=== PATIENT | female | born 1960 | race Caucasian/White ===

== ENCOUNTER 2022-11-12 09:35 | Emergency (ER) | payer OTHER, SELFPAY ==
[2022-11-12 10:04] VITALS: BP 139/85; PULSE 75; RESP 16; TEMP 36.6; O2SAT 100
--- NOTE | 2022-11-12 11:47 | ED.URI ---
HPI - URI/Sore Throat General Chief Complaint: Upper Respiratory Infection Stated Complaint: Sore Throat/Ear Pain Time Seen by Provider: 11/12/22 11:40 Source: patient and RN notes reviewed Mode of arrival: ambulatory Limitations: no limitations History of Present Illness HPI Narrative: 61-year-old female presents concern for 2 day history of left ear pain, sore throat on the left side. She denies fever, aches, chills, sweats, headache, stomach ache. Reports she has a slight runny nose. Reports her son has strep throat. MD elicited complaint: sore throat Related Data Home Medications Medication Instructions Recorded Confirmed lisinopril 2.5 mg tablet mg 11/12/22 pantoprazole 40 mg tablet,delayed mg PO 11/12/22 release simvastatin 40 mg tablet mg 11/12/22 Allergies Allergy/AdvReac Type Severity Reaction Status Date / Time Penicillins Allergy Unknown Itching Unverified 08/29/13 11:33 Review of Systems Review of Systems: CONSTITUTIONAL: Denies malaise, chills, sweats, or fever. EYES: Denies visual changes, redness, or discharge. ENT: Reports rhinorrhea, otalgia and sore throat. CARDIOVASCULAR: Denies chest pain, palpitations, or edema. RESPIRATORY: Denies cough. Denies dyspnea. GASTROINTESTINAL: Denies abdominal pain, nausea, vomiting, diarrhea SKIN: Denies rash or itching. MUSCULOSKELETAL: Denies myalgia. NEUROLOGIC: Denies headache. All systems reviewed & are unremarkable except as noted in HPI and below PMFSH Comments At time of signature, agree with nursing past medical, surgical, social and family history. There is no relevant family history pertinent to the presenting complaint Exam Narrative: GENERAL: Well-appearing, well-nourished, and in no acute distress. HEAD: Normocephalic EYES: PERRLA, conjunctivae clear ENT: Nares clear, turbinates edematous and erythematous, clear discharge. Mucous membranes moist. TM pearly lemus with dull light reflex bilaterally; no tragal tenderness. Oropharynx erythematous without lesions. Tonsils enlarged and with exudate, no drooling, no hoarseness, no trismus, uvula midline. NECK: Supple. No lymphadenopathy CHEST: Clear to auscultation, breath sounds equal. No wheezing, rhonchi, rales, or stridor. No respiratory distress, speaks in full sentences. HEART: Regular rate and rhythm. No murmur heard. SKIN: Warm, dry, no rash. NEURO: Alert and oriented x3. PSYCH: Normal mood and affect Course Course Emergency Course: Patient is aware of diagnosis, understands and agrees to treatment plan. Anticipatory guidance given. Patient agrees to follow-up as directed and is aware of reasons to seek care at the emergency department. Portions of this record may have been created with voice recognition software Level of Care: Express Care Visit Vital Signs Vital signs: Vital Signs Temperature 98 F 11/12/22 10:04 Pulse Rate 75 11/12/22 10:04 Respiratory Rate 16 11/12/22 10:04 Blood Pressure 139/85 11/12/22 10:04 Pulse Oximetry 100 11/12/22 10:04 Oxygen Delivery Room Air 11/12/22 10:04 Temperature 98 F 11/12/22 10:04 Pulse Rate 75 11/12/22 10:04 Respiratory Rate 16 11/12/22 10:04 Blood Pressure 139/85 11/12/22 10:04 Pulse Oximetry 100 11/12/22 10:04 Oxygen Delivery Room Air 11/12/22 10:04 Reviewed. MDM - URI/Sore Throat MDM Narrative Medical decision making narrative: Differential diagnosis considered: Wiseman virus, strep pharyngitis, allergic rhinitis, upper respiratory tract infection, sinusitis, rhinosinusitis, nasopharyngitis. viral pharyngitis, otitis media, otitis externa, pneumonia, bronchitis, viral cough syndrome, viral syndrome, and influenza. Exam findings show no acute concerns or changes; patient is non-toxic appearing and is in no distress. Patient is appropriate for outpatient treatment and follow-up. Lab Data Attestation: I reviewed the patient's lab results. Critical Care Time Critical Care Time Crit
== END 2022-11-12 12:12 | disposition home or self-care (01) ==
PROVIDERS: Emergency Provider Nurse Practitioner; PCP Family Medicine
DX: J03.90 Acute tonsillitis, unspecified (principal); Z79.899 Other long term (current) drug therapy
CPT/HCPCS: 87081; 87880; 99203; G0463

== ENCOUNTER 2023-03-02 09:50 | Emergency (ER) | payer OTHER, SELFPAY ==
[2023-03-02 09:57] VITALS: BP 121/75; PULSE 92; RESP 16; TEMP 36.9; O2SAT 96
--- NOTE | 2023-03-02 10:12 | ED.GENADULT ---
HPI - General Adult General Chief complaint: Upper Respiratory Infection Stated complaint: throat/cough Source: patient, RN notes reviewed and old records reviewed Mode of arrival: ambulatory Limitations: no limitations History of Present Illness HPI narrative: 62-year-old female presents to [facility] with complaints cough, congestion, general malaise this started 2-3 days ago, then sore throat started yesterday. Patient taking [id number] medications with no relief. Patient denies weakness, dizziness, chest pain, shortness of. MD complaint: sore throat Onset (ago): day(s) (1) Related Data Home Medications Medication Instructions Recorded Confirmed lisinopril 2.5 mg tablet 2.5 mg PO DAILY 11/12/22 03/02/23 pantoprazole 40 mg tablet,delayed 40 mg PO DAILY 11/12/22 03/02/23 release simvastatin 40 mg tablet 40 mg PO DAILY 11/12/22 03/02/23 levothyroxine 125 mcg tablet 125 mcg PO DAILY 03/02/23 03/02/23 Allergies Allergy/AdvReac Type Severity Reaction Status Date / Time Penicillins Allergy Unknown Itching Unverified 03/02/23 10:15 Review of Systems Constitutional: Constitutional: Reports no additional constitutional complaints, Denies body ache(s), Denies chills, Reports fatigue, Denies fever(s) and Denies headache(s) Eyes: Eyes: Reports no additional eye complaints and Denies blurry vision ENT: Reports system reviewed and no additional complaints, except as documented, Denies vertigo, Denies dizziness, Denies ear discharge, Denies otalgia, Denies facial pain, Denies headache(s), Reports nasal congestion, Denies nasal discharge, Denies sinus pain, Denies sinus pressure and Reports sore throat Cardiovascular: Cardiovascular: Reports no additional cardiovascular complaints, Denies chest pain, Denies chest pain at rest, Denies rapid heart rate and Denies dyspnea Respiratory: Respiratory: Reports no additional respiratory complaints, Denies chest congestion, Reports cough, Denies pain on inspiration, Denies pain with cough and Denies dyspnea Gastrointestinal: Gastrointestinal: Denies abdominal pain, Denies diarrhea, Denies nausea and Denies vomiting Integumentary/Breasts: Skin/Breast: Denies rash Neurologic: Reports system reviewed and no additional complaints, except as documented, Denies vertigo, Denies dizziness and Denies headache(s) Endocrine: Endocrine: Denies fatigue PMFSH Comments At the time of my signature, I reviewed and agree with the nursing past medical, surgical, social, and family history. There is no relevant family history pertinent to the patient complaint. Exam Const: General: cooperative, healthy appearing, no acute distress and well nourished Nutritional Appearance: well nourished Orientation/consciousness: patient oriented x3 Limitations: no limitations HENMT: Head: normal to inspection and normocephalic Ears: external ears normal, TM's normal bilaterally, mastoids normal and Abnormal EAC present Face/Nose/Sinus: normal facial exam Face and sinus: normal facial exam Mouth: Yes Normal oral and palatal mucosa present, Yes oropharynx normal and Yes moist mucous membranes Throat: tonsils normal, uvula midline, posterior oropharynx abnormal erythema and no uvular edema Eyes: General: appearance normal, both eyes and all related structures Sclera: sclerae normal Pupils: Equal, round and reactive pupils present Resp: Effort & Inspection: normal respiratory effort, able to speak in complete sentences, no audible wheezes, no cough, no respiratory distress and no retractions Auscultation: clear to auscultation bilaterally, no crackles, no rales, no rhonchi and no wheezes Cardio: Rate: regular rate Rhythm: regular rhythm Skin: General skin exam: normal color and no rashes or lesions noted Neuro: General: patient oriented x3 Cranial nerves: Yes Equal, round and reactive pupils present Psych: Appearance: grossly normal Mental Status: mental status grossly normal Speech and movement: Araceli
== END 2023-03-02 10:25 | disposition home or self-care (01) ==
PROVIDERS: Emergency Provider Registered Nurse; PCP Family Medicine
DX: B34.9 Viral infection, unspecified (principal)
CPT/HCPCS: 87081; 87880; 99213; G0463

== ENCOUNTER 2023-10-29 07:07 | Day surgery (SDC) | payer OTHER, SELFPAY ==
[2023-10-07 11:49] VITALS: BMI 26.2
[2023-10-13 14:45] VITALS: BMI 25.8
--- NOTE | 2023-10-28 10:07 | P.PNAN_ITS ---
Anes - Initial Pre Proc Eval Procedure: Operation Date: 10/29/23 09:00 Proposed Procedures p Diagnostic Colonoscopy - Jose Maciel MD Date/Time: 10/28/23 10:07 Surgeon: Jose Maciel MD Pre Op Diagnosis: Personal HX of Other Diseases of the Digestive Patient Data Age: 62 Gender: F Height: 1.63 m Weight: 68.3 kg Allergies Allergy/AdvReac Type Severity Reaction Status Date / Time Penicillins Allergy Unknown Itching Verified 10/29/23 07:29 Home Medications Medication Instructions Recorded Confirmed Type levothyroxine 125 mcg tablet 125 mcg PO DAILY 03/02/23 10/29/23 History cholecalciferol (vitamin D3) 25 25 mcg PO DAILY 10/13/23 10/29/23 History mcg (1,000 unit) tablet (Vitamin D3) Patient hx anesthesia problems: none Family hx anesthesia problems: none Results Review: All pre-operative results and documents have been reviewed as part of the pre- operative evaluation. [facility] Past Medical History Medical History (Updated 10/28/23 @ 10:07 by Caden Live DO) Disorder of thyroid History of hypertension Hypothyroidism Surgical History Surgical History (Updated 10/28/23 @ 10:07 by Caden Live DO) History of cholecystectomy Family History Family History (Updated 09/22/23 @ 09:45 by Rivka Tarango MA) Father Hypertension Mother Diabetes mellitus Social History Social History (Updated 09/22/23 @ 09:47 by Rivka Tarango MA) Smoking status: Former smoker Tobacco type: cigarettes Alcohol intake: never Substance use type: does not use Do You Feel Safe in your Home?: Yes Lack of Transportation: No Lack of Food: Never True Current Housing: I Have Housing Concerned About Future Housing: No Difficulty Paying Gas/Electric Bills: No Difficulty Paying for Meds: No Currently Unemployed: No Education: High School Diploma/GED Living arrangements: alone Occupation/Education: retired Spiritual care concerns: No Agree to blood products: Yes Anes - Eval Final PreProcedure Day of Procedure 10/28/23 10:07 Patient weight: overweight Heart: regular rate and rhythm Lungs: clear to auscultation Airway: Mallampati scale class II Neurological: alert and oriented Last oral intake: >/= 8 hours ASA classification: II Emergent: no Anesthetic plan: proceed Anesthesia type and monitoring: general GIVS and standard monitoring Results Review: All pre-operative results and documents have been reviewed as part of the pre- operative evaluation. Informed Consent: The patient's anesthetic plan and its attendant risks and benefits were discussed with the patient/family/POA. Questions were solicited and answers provided to the satisfaction of the patient/family/POA.
[2023-10-29 07:40] VITALS: BP 131/86; PULSE 74; RESP 16; TEMP 37.3; O2SAT 100; BMI 25.5
--- NOTE | 2023-10-29 08:11 | PM.HPGS ---
History of Present Illness History of Present Illness Consent: Risks, benefits, and alternatives have been discussed and questions answered. Patient agrees to proceed with procedure. Chief complaint: history of bloody diarrhea Narrative: Carla Summers is a 62 year old female referred colonoscopy. Patient reports having had abdominal pain with diarrhea admixed with blood. This occurred after eating out with friends will also became ill. Because of abdominal pain diarrhea and bleed is admitted the hospital in [place] for several days. CT scan suggested diffuse colitis. Patient was treated with broad-spectrum antibiotics with resolution of symptoms. Patient's current weight appetite and bowel movements have returned to normal. Previous colonoscopy 2 years ago was unremarkable. Patient referred today for follow-up colonoscopy after her recent episode. Review of Systems Review of Systems: All systems reviewed & are unremarkable except as noted in HPI and below PMFSH Past Medical History Medical History (Updated 10/28/23 @ 10:07 by Caden Live DO) Disorder of thyroid History of hypertension Hypothyroidism Surgical History Surgical History (Updated 10/28/23 @ 10:07 by Caden Live DO) History of cholecystectomy Family History Family History (Updated 09/22/23 @ 09:45 by Rivka Tarango MA) Father Hypertension Mother Diabetes mellitus Social History Social History (Updated 09/22/23 @ 09:47 by Rivka Tarango MA) Smoking status: Former smoker Tobacco type: cigarettes Alcohol intake: never Substance use type: does not use Do You Feel Safe in your Home?: Yes Lack of Transportation: No Lack of Food: Never True Current Housing: I Have Housing Concerned About Future Housing: No Difficulty Paying Gas/Electric Bills: No Difficulty Paying for Meds: No Currently Unemployed: No Education: High School Diploma/GED Living arrangements: alone Occupation/Education: retired Spiritual care concerns: No Agree to blood products: Yes Meds Home Medications and Allergies Home Medications Medication Instructions Recorded Confirmed Type levothyroxine 125 mcg tablet 125 mcg PO DAILY 03/02/23 10/29/23 History cholecalciferol (vitamin D3) 25 25 mcg PO DAILY 10/13/23 10/29/23 History mcg (1,000 unit) tablet (Vitamin D3) Allergies Allergy/AdvReac Type Severity Reaction Status Date / Time Penicillins Allergy Unknown Itching Verified 10/29/23 07:29 Vital Signs Vital Signs - 24 hr 10/29/23 07:40 Temperature 99.2 F Pulse Rate 74 Respiratory Rate 16 Blood Pressure 131/86 Pulse Oximetry 100 Oxygen Delivery Room Air Exam Narrative: Physical exam reveals patient to be alert. Vital signs stable. HEENT exam is unremarkable. Patient is anicteric. Lungs are clear to auscultation and percussion. His without murmur or extra sounds. Abdomen bowel sounds are present soft nontender with no organomegaly. Digital external rectal exam is normal. Assessment and Plan Assessment and plan (1) History of colitis: Code(s): Z87.19 - Personal history of other diseases of the digestive system Status: Acute Assessment and Plan: Patient had episode of bloody diarrhea suspicious for infectious colitis. Colonoscopy requested. Symptoms now resolved. Further recommendations may be given after endoscopy.
[2023-10-29] MEDS: LACTATED RINGERS 1,000 ML 150 ML IV CONT (08:19)
[2023-10-29 09:41] VITALS: BP 111/68; PULSE 78; RESP 14; O2SAT 98
[2023-10-29 09:51] VITALS: BP 110/73; PULSE 77; RESP 16; O2SAT 100
[2023-10-29 10:01] VITALS: BP 112/82; PULSE 64; RESP 16; O2SAT 100
--- NOTE | 2023-10-29 11:35 | WPDANESPN ---
Anes - Prog Note Post-Op Date/Time: 10/29/23 11:35 Cardiovascular status: normal Respiratory status: normal Airway patency: baseline Mental status: baseline Post-Op hydration status: normal Vital Signs: Last Vital Signs Temp 37.3 C 10/29/23 07:40 Pulse 64 10/29/23 10:01 Resp 16 10/29/23 10:01 BP 112/82 10/29/23 10:01 Pulse Ox 100 10/29/23 10:01 O2 Del Method Room Air 10/29/23 10:01 Pain Score (VAS): 0 I/O: Intake & Output 10/28/23 10/29/23 10/29/23 23:59 07:59 15:59 Intake Total 750 Balance 750 Post-procedural complaints: none Patient Feedback: Patient satisfied with anesthetic care. Other Findings: Patient vital signs back to baseline. Patient denies nausea and vomiting. Patient's pain under control. Patient OK for discharge.
== END 2023-10-29 10:12 | disposition home or self-care (01) ==
PROVIDERS: PCP Nurse Practitioner Adult Health; Referring Provider Nurse Practitioner Adult Health; Visit Provider Internal Medicine Gastroenterology
PROC: 0DJD8ZZ Inspection of Lower Intestinal Tract, Via Natural or Artificial Opening Endoscopic (ICD-10-PCS; CPT 45378; principal; 2023-10-29 09:00)
DX: R19.7 Diarrhea, unspecified (principal); K64.8 Other hemorrhoids
CPT/HCPCS: 45378

== ENCOUNTER 2024-03-24 09:54 | Outpatient (CLI) | payer OTHER, SELFPAY ==
[2024-03-24 19:47] LABS: Alanine Aminotransferase 35 U/L (6-35); Albumin Level 4.4 g/dL (3.5-5.1); Alkaline Phosphatase 105 U/L (38-126); Anion Gap 8 mmol/L (4-12); Aspartate Amino Transferase 43 U/L (14-36); Bilirubin,Total 0.5 mg/dL (0.2-1.3); Blood Urea Nitrogen 21 mg/dL (7-17); Calcium 9.2 mg/dL (8.4-10.2); Carbon Dioxide 27 mmol/L (22-30); Chloride 105 mmol/L (98-107); Cholesterol 143 mg/dL (0-200); Estimated Glomerular Filt Rate > 60; Glucose 78 mg/dL (65-110); HDL Direct 53 mg/dL; Potassium 4.4 mmol/L (3.4-5.0); Sodium 140 mmol/L (137-145); Triglycerides 73 mg/dL (<150)
[2024-03-24 19:57] LABS: LDL Cholesterol Direct 76 mg/dL
--- OUTSIDE RECORDS SUMMARY | 2024-03-25 22:55 | XMS_ITS | Clinical Summary ---
Author Organization [facility] Address [address] [place] [address] Phone Care Team Providers Care Soa Integration Architect Name Role Phone ISMAEL KUMAR DO Primary Care Provider [phone] FREDDY ROSALES, PARVIZ C Unavailable [phone] Reason for Visit and Chief Complaint The Chief Complaint is: WWE, no c/o, one new partner Problems Includes: Problems addressed during this encounter and other active Problems All Visits Onset Date Resolved Date Provider Condition S tatus Hypertension Systemic 06/19/2023 ROBINSON GRIFFIN WHNP-BC Active Last Documented On 4 9:34AM ; [facility] Gynecologic Services Thermal Endometrial Ablation 01/15/2018 ROBINSON GRIFFIN WHNP-BC Active Last Documented On 8 10:00AM ; [facility] Hypothyroidism 01/15/2018 ROBINSON GRIFFIN WHNP-BC Active Last Documented On 8 10:00AM ; [facility] Postsurgical State 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/15/2018 ROBINSON AMADO WHNP-BC Active Last Documented On 8 9:55AM ; [facility] Plan of Treatment - Follow-up visit 1 year or as needed - Last Documented On 05/17/2021 1:48PM ; [facility] - Clinical summary provided to patient - Last Documented On 05/17/2021 1:48PM ; [facility] Pending Tests Order Diagnosis Results Due Ordering P ronadir Radiology @ other - *MAMMOGRAPHY SCREENING MAMMOGRAM Encntr screen mammogram for malignant neoplasm of breast 07/03/23 ROBINSON GRIFFIN WHNP-BC Last Documented On 4 9:47AM ; [facility] Instructions to patient Instructions for patient : B reast Self Exam discussed Last Documented On 2 1:40PM ; [facility] Lose weight Last Documented On 2 1:41PM ; [facility] Safe sex counseling Last Documented On 2 1:48PM ; [facility] Education and Decision Aids were provided during visit for: Patient Education: Daily juaquin cium and vitamin D Last Documented On 2 1:40PM ; [facility] Patient Education: weight be aring exercise Last Documented On 2 1:40PM ; [facility] Assessments Includes: Assessments from this encounter Findings - NORMAL FEMALE EXAM [Z01.419 - Encounter for gynecological examination (general) (routine) without abnormal findings] - Last Documented On 05/17/2021 1:48PM ; [facility] - Screening Malig. Neoplasm Rectum [Z12.12 - Encounter for screening for malignant neoplasm of rectum] - Last Documented On 05/17/2021 1:48PM ; [facility] Instructions Includes: Instructions from this encounter Instructions to patient Instructions for patient : B reast Self Exam discussed Last Documented On 2 1:40PM ; [facility] Lose weight Last Documented On 2 1:41PM ; [facility] Safe sex counseling Last Documented On 2 1:48PM ; [facility] Education and Decision Aids were provided during visit for: Patient Education: Daily juaquin cium and vitamin D Last Documented On 2 1:40PM ; [facility] Patient Education: weight be aring exercise Last Documented On 2 1:40PM ; [facility] Medical Equipment - Implanted Devices Includes: Current Devices No Medical Equipment Recorded Medications Includes: Medications discussed during this encounter and other current Medications Current Medications (continue as prescribed) Methocarbamol 500 MG Oral Tablet 08/11/2023 Provider: ELENA JIN Diagnosis: Myalgia, unspeci fied site One tablet three times a day as needed for muscle spasm/stiffness Last Documented On 4 3:16PM By JUSTINE PARKER ; [facility] Levothyroxine Sodium 125 MCG Oral Tablet 03/24/2023 Provider: Diagnosis: Last Documented On 4 3:16PM By JUSTINE PARKER ; [facility] Lisinopril 10 MG Oral Tablet 05/11/2020 Provider: Diagnosis: Last Documented On 4 3:16PM By JUSTINE PARKER ; [facility] Synthroid 50 MCG Tablet 12/19/2015 Provider: Diagnosis: Last Documented On 4 3:16PM By JUSTINE CAMACHOGRISEL ; [facility] Medications Administered Includes: Administered Medications from this encounter No Administered Medications Recorded Vital Signs Includes: Vital Signs from this encounter Vital Name 05/17/2021 01:36P Blood Pressure Sitting L 116/70 BP Cuff Size Large Temp-Temporal 97.2 Height (in) 63.57 Weight (lb) 182 Body Mass Index (kg/m2) 31.7 Body Surface Area (m2) 1.9 Last Documented: On 05/17/2021 1:39PM ; [facility] Results Includes: Results discussed during this encounter No Results Recorded For Specified Dates History of Present Illness Includes: History of Present Illness from this encounter JORDAN MARINO is a 60 year old female. - Allergy list reviewed - Medication list reviewed - Primary Care Provider: Dr Marlene Kumar Social History Description Last Updated Not using alcohol 05/17/2021 Last Documented On 2 1:48PM ; [facility] Not using drugs 05/17/2021 Last Documented On 2 1:48PM ; [facility] Smoking status : Former smoker 2 Last Documented On 2 1:48PM ; [facility] Social history unchanged 05/17/2021 Last Documented On 2 1:48PM ; [facility] Procedures and Surgical History Includes: Procedures from this encounter Procedures Code Diagnosis Performing Provider Service L ocation Service Date low fat diet Last Documented On 2 1:41PM ; [facility] use of tobacco assessment performed 1000F Last Documented On 2 1:40PM ; [facility] review of medications documented 1160F Last Documented On 2 1:41PM ; [facility] fecal occult blood test was negative 19166 Last Documented On 2 1:40PM ; [facility] a BD Affirm was performed Last Documented On 2 1:48PM ; [facility] Surgical History Last Updated History of hysterectomy 201105/17/2021 Last Documented On 2 1:48PM ; [facility] Surgical / procedural histor y gal bladder removed, ~surgery both arms ~surgery both legs ~Right knee ~Left foot ~Endometrial ablation ~Lithotripsy ~Breast Implants (silicone) ~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 ~Bladder sling after hyst ~bunion removed from left foot 05/17/2021 Last Documented On 2 1:48PM ; [facility] Medical History Includes: Medical History addressed during this encounter Description Last Updated History of colonoscopy fiberoptic was pe rformed 201705/17/2021 Last Documented On 2 1:48PM ; [facility] History of screening mammogram was perfo rmed 04/27/2021 05/17/2021 Last Documented On 2 1:48PM ; [facility] 2 05/17/2021 Last Documented On 2 1:48PM ; [facility] History of a DXA of the lateral lumbar s pine was performed 01/19/2018 wnl 05/17/2021 Last Documented On 2 1:48PM ; [facility] History of complete colonoscopy 2017 Dr Gaona repeat in 5 years 05/17/2021 Last Documented On 2 1:48PM ; [facility] History of hyperlipidemia 05/17/2021 Last Documented On 2 1:48PM ; [facility] History of hypothyroidism 05/17/2021 Last Documented On 2 1:48PM ; [facility] Last mammogram date: 04/06/2020 2 Last Documented On 2 1:48PM ; [facility] LMP: 201105/17/2021 Last Documented On 2 1:48PM ; [facility] No recent change in medical history 05/01 Last Documented On 2 1:48PM ; [facility] Not sexually active 05/17/2021 Last Documented On 2 1:48PM ; [facility] Para 2 05/17/2021 Last Documented On 2 1:48PM ; [facility] Result: normal @[facility] 05/17/2021 Last Documented On 2 1:48PM ; [facility] Family History Includes: Family History addressed during this encounter No Family History Recorded Review of Systems Includes: Review of Systems from this encounter Gastrointestinal: No pelvic pain. Genitourinary: No postmenopausal bleeding. No vaginal discharge. Mental Status Includes: Mental Status from this encounter No Mental Status Recorded Functional Status Includes: Functional Status from this encounter No Functional Status Recorded Physical Exam Includes: Physical Exam from this encounter Allergies Includes: Active Allergies Substance Type Reaction Onset Date Resolved Date Statu s Penicillins Allergy 12/19/2015 Active Last Documented On 4 9:37AM ; [facility] Encounters Encounter Provider Location Date Check-In Time Check-Out Time Diagnosis WELL WOMAN - ESTABLISHED PT ROBINSON GRIFFIN [facility] 05/18/19 22 1:34PM 1:53PM Screening Malig. Neoplasm Rectum,Normal Female Exam Insurance Includes: Active Insurance Policies Plan Name Member ID Group # Subscriber Relationship Effect sandy Dates 1 - [facility] MED PLAN [id number] YAMILET MARINO Self Clinical Notes Includes: Clinical Notes from this encounter No Clinical Notes Recorded
--- OUTSIDE RECORDS SUMMARY | 2024-03-25 22:55 | XMS_ITS | Clinical Summary ---
Author Organization [facility] Address [address] [place] [address] Phone Care Team Providers Care Sign Writer Hand Name Role Phone ISMAEL KUMAR DO Primary Care Provider [phone] FREDDY ROSALES, PARVIZ C Unavailable [phone] Reason for Visit and Chief Complaint The Chief Complaint is: WWE, no c/o, no new partners Problems Includes: Problems addressed during this encounter and other active Problems All Visits Onset Date Resolved Date Provider Condition S tatus Hypertension Systemic 06/19/2023 ROBINSON GRIFFIN WHNP-BC Active Last Documented On 4 9:34AM ; [facility] Gynecologic Services Thermal Endometrial Ablation 01/15/2018 ROBINSON GRIFFIN WHNP-BC Active Last Documented On 8 10:00AM ; [facility] Hypothyroidism 01/15/2018 ROBINSON GRIFFIN WHNP-BC Active Last Documented On 8 10:00AM ; [facility] Postsurgical State 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/15/2018 ROBNISON AMADO WHNP-BC Active Last Documented On 8 9:55AM ; [facility] Plan of Treatment - Follow-up visit 1 year or as needed - Last Documented On 05/11/2020 3:09PM ; [facility] - Clinical summary provided to patient - Last Documented On 05/11/2020 3:09PM ; [facility] Pending Tests Order Diagnosis Results Due Ordering P ronadir Radiology @ other - *MAMMOGRAPHY SCREENING MAMMOGRAM Encntr screen mammogram for malignant neoplasm of breast 07/03/23 ROBINSON GRIFFIN WHNP-BC Last Documented On 4 9:47AM ; [facility] Instructions to patient Instructions for patient : B reast Self Exam discussed Last Documented On 1 2:48PM ; [facility] Lose weight Last Documented On 1 2:50PM ; [facility] Education and Decision Aids were provided during visit for: Patient Education: Daily juaquin cium and vitamin D Last Documented On 1 2:48PM ; [facility] Patient Education: weight be aring exercise Last Documented On 1 2:48PM ; [facility] Assessments Includes: Assessments from this encounter Findings - NORMAL FEMALE EXAM [Z01.419 - Encounter for gynecological examination (general) (routine) without abnormal findings] - Last Documented On 05/11/2020 3:09PM ; [facility] - Screening Malig. Neoplasm Rectum [Z12.12 - Encounter for screening for malignant neoplasm of rectum] - Last Documented On 05/11/2020 3:09PM ; [facility] Instructions Includes: Instructions from this encounter Instructions to patient Instructions for patient : B reast Self Exam discussed Last Documented On 1 2:48PM ; [facility] Lose weight Last Documented On 1 2:50PM ; [facility] Education and Decision Aids were provided during visit for: Patient Education: Daily juaquin cium and vitamin D Last Documented On 1 2:48PM ; [facility] Patient Education: weight be aring exercise Last Documented On 1 2:48PM ; [facility] Medical Equipment - Implanted Devices Includes: Current Devices No Medical Equipment Recorded Medications Includes: Medications discussed during this encounter and other current Medications Current Medications (continue as prescribed) Methocarbamol 500 MG Oral Tablet 08/11/2023 Provider: JUSTINE SINGLETON, JANICE-GRISEL Diagnosis: Myalgia, unspeci fied site One tablet three times a day as needed for muscle spasm/stiffness Last Documented On 4 3:16PM By JUSTINE PARKER ; [facility] Levothyroxine Sodium 125 MCG Oral Tablet 03/24/2023 Provider: Diagnosis: Last Documented On 4 3:16PM By JUSTINE PARKER ; [facility] Lisinopril 10 MG Oral Tablet 05/11/2020 Provider: Diagnosis: Last Documented On 4 3:16PM By JUSTINE PARKER ; [facility] Synthroid 50 MCG Tablet 12/19/2015 Provider: Diagnosis: Last Documented On 4 3:16PM By JUSTINE PARKER ; [facility] Medications Administered Includes: Administered Medications from this encounter No Administered Medications Recorded Vital Signs Includes: Vital Signs from this encounter Vital Name 05/11/2020 02:53P Blood Pressure Sitting L 128/80 BP Cuff Size Large Temp-Oral (F) 98 Height (in) 64 Weight (lb) 189 Body Mass Index (kg/m2) 32.4 Body Surface Area (m2) 1.9 Last Documented: On 05/11/2020 2:56PM ; [facility] Results Includes: Results discussed during this encounter No Results Recorded For Specified Dates History of Present Illness Includes: History of Present Illness from this encounter JORDAN MARINO is a 59 year old female. - Allergy list reviewed - Medication reconciliation performed - Primary Care Provider: Dr. Marlene Kumar Social History Description Last Updated Not using alcohol 05/11/2020 Last Documented On 1 3:09PM ; [facility] Not using drugs 05/11/2020 Last Documented On 1 3:09PM ; [facility] Smoking status : Former smoker 1 Last Documented On 1 3:09PM ; [facility] Social history unchanged 05/11/2020 Last Documented On 1 3:09PM ; [facility] Procedures and Surgical History Includes: Procedures from this encounter Procedures Code Diagnosis Performing Provider Service L ocation Service Date low fat diet Last Documented On 1 2:50PM ; [facility] review of medications documented 1160F Last Documented On 1 2:57PM ; [facility] fecal occult blood test was negative 57908 Last Documented On 1 2:48PM ; [facility] a colonoscopy was performed 2019 Last Documented On 1 2:57PM ; [facility] patient recently had a dexa scan Last Documented On 1 2:57PM ; [facility] Surgical History Last Updated History of hysterectomy 201105/11/2020 Last Documented On 1 3:09PM ; [facility] Surgical / procedural histor y gal bladder removed, ~surgery both arms ~surgery both legs ~Right knee ~Left foot ~Endometrial ablation ~Lithotripsy ~Breast Implants (silicone) ~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 ~Bladder sling after hyst ~bunion removed from left foot 05/11/2020 Last Documented On 1 3:09PM ; [facility] Medical History Includes: Medical History addressed during this encounter Description Last Updated Last mammogram date: 04/06/2020 Last Documented On 1 3:09PM ; [facility] History of screening mammogram was perfo rmed 04/06/2020 05/11/2020 Last Documented On 1 3:09PM ; [facility] 2 05/11/2020 Last Documented On 1 3:09PM ; [facility] History of a DXA of the lateral lumbar s pine was performed 01/19/2018 wnl 05/11/2020 Last Documented On 1 3:09PM ; [facility] History of complete colonoscopy 2017 Dr Candelaria bales in 5 years 05/11/2020 Last Documented On 1 3:09PM ; [facility] History of hyperlipidemia 05/11/2020 Last Documented On 1 3:09PM ; [facility] History of hypothyroidism 05/11/2020 Last Documented On 1 3:09PM ; [facility] LMP: 201105/11/2020 Last Documented On 1 3:09PM ; [facility] No recent change in medical history 05/01 Last Documented On 1 3:09PM ; [facility] Not sexually active 05/11/2020 Last Documented On 1 3:09PM ; [facility] Para 2 05/11/2020 Last Documented On 1 3:09PM ; [facility] Result: normal @[facility] 05/11/2020 Last Documented On 1 3:09PM ; [facility] Family History Includes: Family History addressed during this encounter No Family History Recorded Review of Systems Includes: Review of Systems from this encounter No Review of Systems Recorded Mental Status Includes: Mental Status from this encounter No Mental Status Recorded Functional Status Includes: Functional Status from this encounter No Functional Status Recorded Physical Exam Includes: Physical Exam from this encounter Allergies Includes: Active Allergies Substance Type Reaction Onset Date Resolved Date Statu s Penicillins Allergy 12/19/2015 Active Last Documented On 4 9:37AM ; [facility] Encounters Encounter Provider Location Date Check-In Time Check-Out Time Diagnosis WELL WOMAN - ESTABLISHED PT ROBINSON GRIFFIN [facility] 05/12/19 21 2:46PM 3:11PM Screening Malig. Neoplasm Rectum,Normal Female Exam Insurance Includes: Active Insurance Policies Plan Name Member ID Group # Subscriber Relationship Effect sandy Dates 1 - [employer] MED PLAN [id number] YAMILET MARINO Self Clinical Notes Includes: Clinical Notes from this encounter No Clinical Notes Recorded
--- OUTSIDE RECORDS SUMMARY | 2024-03-25 22:55 | XMS_ITS | Clinical Summary ---
Author Organization [facility] Address [address] [place] [address] Phone Care Team Providers Care Nursing Home Assistant Name Role Phone ISMAEL KUMAR DO Primary Care Provider [phone] FREDDY ROSALES, PARVIZ Otto Unavailable [phone] Reason for Visit and Chief Complaint The Chief Complaint is: WWE. No issues or concerns Problems Includes: Problems addressed during this encounter and other active Problems Current Visit Onset Date Resolved Date Provider Conditio n Status Hypertension Systemic 06/19/2023 ROBINSON GRIFFIN WHNP-BC Active Last Documented On 4 9:34AM ; [facility] Past Visits Onset Date Resolved Date Provider Condition Status Gynecologic Services Thermal Endometrial Ablation 01/15/2018 ROBINSON GRIFFIN WHNP-BC Active Last Documented On 8 10:00AM ; [facility] Hypothyroidism 01/15/2018 ROBINSON GRIFFIN WHNP-BC Active Last Documented On 8 10:00AM ; [facility] Postsurgical State 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/15/2018 ROBINSON AMADO WHNP-BC Active Last Documented On 8 9:55AM ; [facility] Plan of Treatment - Follow-up visit 1 year or as needed - Last Documented On 06/19/2023 9:44AM ; [facility] - Clinical summary provided to patient - Last Documented On 06/19/2023 9:44AM ; [facility] Pending Tests Order Diagnosis Results Due Ordering P ronadir Radiology @ other - *MAMMOGRAPHY SCREENING MAMMOGRAM Encntr screen mammogram for malignant neoplasm of breast 07/03/23 ROBINSON GRIFFIN WHNP-BC Last Documented On 4 9:47AM ; [facility] Instructions to patient Instructions for patient : B reast Self Exam discussed Last Documented On 4 9:31AM ; [facility] Education and Decision Aids were provided during visit for: Patient Education: Daily juaquin cium and vitamin D Last Documented On 4 9:31AM ; [facility] Patient Education: weight be aring exercise Last Documented On 4 9:31AM ; [facility] Assessments Includes: Assessments from this encounter Findings - NORMAL FEMALE EXAM [Z01.419 - Encounter for gynecological examination (general) (routine) without abnormal findings] - Last Documented On 06/19/2023 9:44AM ; [facility] - Screening Malig. Neoplasm Rectum [Z12.12 - Encounter for screening for malignant neoplasm of rectum] - Last Documented On 06/19/2023 9:44AM ; [facility] Instructions Includes: Instructions from this encounter Instructions to patient Instructions for patient : B reast Self Exam discussed Last Documented On 4 9:31AM ; [facility] Education and Decision Aids were provided during visit for: Patient Education: Daily juaquin cium and vitamin D Last Documented On 4 9:31AM ; [facility] Patient Education: weight be aring exercise Last Documented On 4 9:31AM ; [facility] Medical Equipment - Implanted Devices Includes: Current Devices No Medical Equipment Recorded Medications Includes: Medications discussed during this encounter and other current Medications Discontinued / Stopped on this date ROBINSON A GRIFFIN WHNP-BC on 05/30/2022 metroNIDAZOLE 500 MG Oral Tablet Provider : ROBINSON GRIFFIN WHNP-BC Diagnosis: Last Documented On 06/19/2023 9:37AM By Kay BEEBE ; [facility] Omeprazole 20MG Oral Tablet Delayed Release Provider: Diagnosis: Last Documented On 06/19/2023 9:35AM By Kay BEEBE ; [facility] Current Medications (continue as prescribed) Methocarbamol 500 MG Oral Tablet 08/11/2023 Provider: JUSTINE COHN LENS EXAMINER-FPA, TECHNICAL TRAINING INSTRUCTOR-BC Diagnosis: Myalgia, unspeci fied site One tablet three times a day as needed for muscle spasm/stiffness Last Documented On 4 3:16PM By JUSTINE COHN [facility] ; [facility] Levothyroxine Sodium 125 MCG Oral Tablet 03/24/2023 Provider: Diagnosis: Last Documented On 4 3:16PM By JUSTINE COHN [facility] ; [facility] Lisinopril 10 MG Oral Tablet 05/11/2020 Provider: Diagnosis: Last Documented On 4 3:16PM By JUSTINE COHN [facility] ; [facility] Synthroid 50 MCG Tablet 12/19/2015 Provider: Diagnosis: Last Documented On 4 3:16PM By JUSTINE COHN [facility] ; [facility] Medications Administered Includes: Administered Medications from this encounter No Administered Medications Recorded Vital Signs Includes: Vital Signs from this encounter Vital Name 06/19/2023 09:33A Blood Pressure Sitting (mmHg) 100/80 Temp-Temporal 97.9 Height (in) 62.5 Weight (lb) 162 Body Mass Index 29.2 Body Surface Area 1.8 Last Documented: On 06/19/2023 9:33AM ; [facility] Results Includes: Results discussed during this encounter No Results Recorded For Specified Dates History of Present Illness Includes: History of Present Illness from this encounter JORDAN MARINO is a 62 year old female. - Allergy list reviewed - Medication list reviewed - Primary Care Provider: Dr. Kumar Social History Description Last Updated Not using drugs 08/11/2023 Last Documented On 4 9:30AM ; [facility] Not using alcohol 05/27/2022 Last Documented On 4 9:30AM ; [facility] Tobacco non-user 05/27/2022 Last Documented On 4 9:30AM ; [facility] Smoking Status Unknown Procedures and Surgical History Includes: Procedures from this encounter Procedures Code Diagnosis Performing Provider Service Location Service Date FIT TEST-SCREENING FOR FECAL OCCULT BLOOD (CLIA WAIVED) 65274 Encounter for screening for malignant neoplasm of colon ROBINSON GRIFFIN [facility] 06/19/2023 Last Documented On 4 1:26PM ; [facility] low fat diet Last Documented On 4 9:33AM ; [facility] use of tobacco assessment performed 1000F Last Documented On 4 9:36AM ; [facility] history of cervical Pap smear 86587 Last Documented On 4 9:36AM ; [facility] fecal occult blood test was negative 60337 Last Documented On 4 9:31AM ; [facility] patient recently had a dexa scan 8 Last Documented On 4 9:36AM ; [facility] Surgical History Last Updated History of hysterectomy 201105/17/2021 Last Documented On 4 9:30AM ; [facility] Surgical / procedural histor y gal bladder removed, ~surgery both arms ~surgery both legs ~Right knee ~Left foot ~Endometrial ablation ~Lithotripsy ~Breast Implants (silicone) ~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 ~Bladder sling after hyst ~bunion removed from left foot 05/17/2021 Last Documented On 4 9:30AM ; [facility] Medical History Includes: Medical History addressed during this encounter Description Last Updated Not sexually active 06/19/2023 Last Documented On 4 9:44AM ; [facility] History of diaignostic fiberoptic colono scopy 01/18/2022 06/19/2023 Last Documented On 4 9:44AM ; [facility] History of screening mammogram was perfo rmed 05/28/2022 06/19/2023 Last Documented On 4 9:44AM ; [facility] 2 05/17/2021 Last Documented On 4 9:30AM ; [facility] History of a DXA of the lateral lumbar s pine was performed 01/19/2018 wnl 05/17/2021 Last Documented On 4 9:30AM ; [facility] History of hyperlipidemia 05/17/2021 Last Documented On 4 9:30AM ; [facility] History of hypothyroidism 05/17/2021 Last Documented On 4 9:30AM ; [facility] LMP: 201105/17/2021 Last Documented On 4 9:30AM ; [facility] Para 2 05/17/2021 Last Documented On 4 9:30AM ; [facility] Family History Includes: Family History addressed during this encounter Description Last Updated Maternal history of diabetes mellitus mo m, mgm 02/18/2019 Last Documented On 4 9:30AM ; [facility] Paternal history of hypertension father 02/18/2019 Last Documented On 4 9:30AM ; [facility] Review of Systems Includes: Review of Systems [...] Active Last Documented On 4 9:37AM ; [facility] Encounters Encounter Provider Location Date Check-In Time Check-Out Time Diagnosis [facility] 06/19/19 24 9:30AM 9:45AM Screening Malig. Neoplasm Rectum,Normal Female Exam Insurance Includes: Active Insurance Policies Plan Name Member ID Group # Subscriber Relationship Effect sandy Dates 1 - [facility] MED [facility]AN [id number] YAMILET MARINO Self Clinical Notes Includes: Clinical Notes from this encounter * Progress note Date Encounter Last Documented by 06/19/2023 [facility] Last documented on 06/19/2023; 9:44 AM, [facility] Active Problems & Conditions - Gynecologic Services Thermal Endometrial Ablation - Hypertension Systemic - Hypothyroidism - Postsurgical State 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 No issues or concerns. History of Present Illness YAMILET MARINO is a 62 year old female. - Allergy list reviewed - Medication list reviewed - Primary Care Provider: Dr. Kumar Current Medication - Levothyroxine Sodium 125 MCG Oral Tablet 90 days, 0 refills - Lisinopril 10 MG Oral Tablet 0 days, 0 refills - Synthroid 50 MCG Tablet 0 days, 0 refills Past Medical/Surgical History Reported: LMP: 2011. 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 : 2 and para 2. Sexual: Not sexually active. Other: Diaignostic fiberoptic colonoscopy 01/18/2022. Screening mammogram was performed 05/28/2022. A DXA of the lateral lumbar spine was performed 01/19/2018 wnl Diagnoses: Hyperlipidemia. Hypothyroidism Surgical: - Hysterectomy 2011 Social History Tobacco use: Tobacco non-user. Alcohol: Not using alcohol. Drug Use: Not using drugs. Allergies - Penicillins Family History Paternal: Systemic hypertension father Maternal: Diabetes mellitus mom, mgm Review Of Systems Gastrointestinal: No pelvic pain. Genitourinary: No postmenopausal bleeding. No vaginal discharge. Physical Findings - Vitals taken 06/19/2023 09:33 am BP-Sitting 100/80 mmHg Temp-Temporal 97.9 F Height 62.5 in Weight 162 lbs Body Mass Index 29.2 kg/m2 Body Surface Area 1.8 m2 Standard Measurements: - Patient was not observed to be obese. General Appearance: - Well developed. - Well nourished. - In no acute distress. Neck: Thyroid: - Showed no abnormalities. Lymph Nodes: - Supraclavicular lymph nodes were not enlarged. - Axillary lymph nodes were not enlarged. Breasts: General/bilateral: - Appearance of the breast was abnormal Bilateral implants*. Right Breast: - Nipple was normal. - No abnormal secretion. - No mass was found. - No tenderness. Left Breast: - Nipple was normal. - No abnormal secretion. - No mass was found. - No tenderness. Lungs: - Clear to auscultation. Cardiovascular: Heart Rate And Rhythm: - Normal. Murmurs: - No murmurs were heard. Back: - No right costovertebral angle tenderness. - No left costovertebral angle tenderness. Abdomen: Palpation: - Abdominal non-tender. - No mass was palpated in the abdomen. Liver: - Not enlarged. Spleen: - Not enlarged. Urinary System: Bladder: - Normal. - Not distended. - Not tender. - Did not have a mass. - Incontinence was not demonstrated. Genitalia: External: - Genitalia showed no abnormalities. Pelvic: - No ovarian mass. Vagina: - No vaginal discharge was observed. - Not tender. - No cystocele was observed. - No rectocele was observed. Cervix: - Absent. Uterus: - Absent. Uterine Adnexae: - Uterine adnexa was not tender. Rectovaginal: - Tissue was normal. Rectal: - Exam: normal. Psychiatric: Appearance: - Grooming was normal. Tests Laboratory-based Chemistry: Fecal Analysis: Fecal occult blood test was negative. Assessment - NORMAL FEMALE EXAM [Z01.419 - Encounter for gynecological examination (general) (routine) without abnormal findings] - Screening Malig. Neoplasm Rectum [Z12.12 - Encounter for screening for malignant neoplasm of rectum] Previous Tests Past Medical: Tests: Patient recently had a dexa scan 01/19/18. Pathology: Cytology: Cervical Pap smear. Therapy - Low fat diet. Counseling/Education - Instructions for patient: Breast Self Exam discussed - Patient Education: Daily calcium and vitamin D - Patient Education: weight bearing exercise Plan StartCited - Encntr screen mammogram for malignant neoplasm of breast Radiology @ other/*MAMMOGRAPHY: SCREENING MAMMOGRAM Instructions: Additional images/ultrasounds if indicated Please send to PCP EndCited StartCited - Encounter for screening for malignant neoplasm of rectum In office procedures/*Clia Waived Labs: *FOBT* Fecal Occult Blood Test EndCited StartCited - Other Follow-up 1 year/prn EndCited - Follow-up visit 1 year or as needed - Clinical summary provided to patient Practice Management Preventive medicine established patient checkup adult 40-64 years; Use of tobacco assessment performed. Health Reminders - Assess BMI satisfied 06/19/2023. - Assess Tobacco Use satisfied 06/19/2023. - Colorectal Cancer Screening satisfied 06/19/2023. - Mammogram satisfied 06/19/2023.
--- OUTSIDE RECORDS SUMMARY | 2024-03-25 22:55 | XMS_ITS | Referral Summary ---
Author Organization [facility] [address] Address [address] [place] [address] Phone Care Team Providers Care Personalized Living Manager Name Role Phone Sarah Hensley NP Primary Care Provider [phone] Encounters Date Type Department Care Team Description 01/21/2024 Telephone [facility] Primary Care at [address] [place] [address] John Byrnes Appointment from Last 3 Months Allergies Active Allergy Reactions Criticality Noted Date Comments Penicillins Itching,Rash Medium 08/12/2008 Medications cholecalciferol (VITAMIN D-3) 5,000 unit capsule Take 1 capsule (5,000 Units total) by mouth daily Active levothyroxine (SYNTHROID) 125 mcg tabletIndications:Acqui red hypothyroidism 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 90 tablet 3 01/22/20 23 Active lisinopriL (PRINIVIL,ZESTRIL) 2.5 mg tabletIndications:Prima ry hypertension Take 1 tablet (2.5 mg total) by mouth daily 90 tablet 3 01/22/20 23 Active simvastatin (ZOCOR) 40 mg tabletIndications:Pure hypercholesterolemia Take 1 tablet (40 mg total) by mouth nightly 90 tablet 3 01/22/20 23 Active albuterol HFA (PROVENTIL HFA,VENTOLIN HFA,PROAIR HFA) 90 mcg/actuation inhalerIndications:Acut e cough,Acute bronchitis, unspecified organism Inhale 2 puffs every 6 (six) hours as needed for wheezing 1 each 03/10/19 24 Active inhalational spacing device (Aerochamber MV) spacerIndications:Acute bronchitis, unspecified organism 1 Device daily as needed (use of albuterol inhaler) 1 each 03/10/19 24 Active Active Problems Problem Noted Date Diagnosed Date Thoracic compression fracture, sequela 3 Trigger point of thoracic region 08/28/2022 Personal history of colonic polyps 09/27/2021 Overview (09/27/2021): Added automatically from request for surgery [id number] Influenza vaccine refused 01/23/2021 History of kidney stones 01/10/2021 Primary hypertension 04/28/2019 Assessment & Plan (07/22/2023 8:43 AM CDT): BP Readings from Last 3 Encounters: 07/22/23 108/80 03/10/23 122/80 01/21/23 116/90 Vitals BP 108/80 (BP Location: Left arm, Patient Position: Sitting) Pulse 72 Resp 16 Ht 162.6 cm (5' 4.02 ) Wt 72.4 kg (159 lb 11.2 oz) LMP (LMP Unknown) SpO2 98% BMI 27.40 kg/m?? Lab Results Component Value Date POTASSIUM 4.3 01/21/2023 At goal at this time Continue lisinopril 2.5 mg every day Assessment & Plan (01/21/2023 9:01 AM AREA OPERATIONS DIRECTOR): Blood pressure at goal less than 140/90, continue current prescription medications. Assessment & Plan (08/07/2022 9:02 PM CDT): Blood pressure at goal less than 140/90, continue current prescription medications, lisinopril. Assessment & Plan (01/31/2022 1:15 PM AREA OPERATIONS DIRECTOR): Blood pressure at goal less than 140/90, continue current prescription medications. Assessment & Plan (05/22/2021 9:27 AM CDT): Clinically improved, continue current prescription medications. Assessment & Plan (11/22/2020 10:11 AM CDT): Clinically improved, continue current meds. Assessment & Plan (05/15/2020 9:26 AM CDT): Resolved. Hold lisinopril, bps are hypotensive, no symptoms. May discontinue lisinopril altogether at next visit if blood pressures continue to be hypotensive. Notify our office if blood pressures are increasing, patient instructed that she may restart the lisinopril should she developed high blood pressure. Assessment & Plan (11/09/2019 3:15 PM CDT): Clinically improved, continue current meds. Assessment & Plan (06/24/2019 1:50 PM CDT): Newly dx'd. Trial of lisinopril. BP goal < 140/90. Will follow. Assessment & Plan (04/28/2019 12:41 PM AREA OPERATIONS DIRECTOR): Advised against the use of Adipex for weight mgmt. Continue to monitor bp. Notify our office if bp > 140/90. Snoring 05/26/2018 Assessment & Plan (05/26/2018 10:31 AM CDT): [place] Sleepiness scale done, score is 14. Referral to Sleep medicine. Pure hypercholesterolemia 12/19/2017 Assessment & Plan (07/22/2023 8:43 AM CDT): Lab Results Component Value Date CHOL 159 01/21/2023 CHOL 142 07/25/2022 CHOL 231 (H) 02/01/2022 Lab Results Component Value Date HDL 50 01/21/2023 HDL 44 07/25/2022 HDL 45 02/01/2022 Lab Results Component Value Date LDLCALC 87 01/21/2023 LDLCALC 74 07/25/2022 LDLCALC 164 (H) 02/01/2022 LDL 154 09/16/2015 LDL 149 (H) 06/14/2014 LDL 163 (H) 09/20/2013 Lab Results Component Value Date TRIG 108 01/21/2023 TRIG 120 07/25/2022 TRIG 110 02/01/2022 No results found for: POCCHDLR No results found for: POCNONHDL No results found for: POCCHLPL At goal Continue zocor 40 mg every day Assessment & Plan (01/21/2023 9:01 AM AREA OPERATIONS DIRECTOR): LDL at goal of less than 100, continue current prescription medications. Assessment & Plan (08/07/2022 9:03 PM CDT): LDL at goal of less than 100, continue current prescription medications, simvastatin. Assessment & Plan (01/31/2022 1:16 PM AREA OPERATIONS DIRECTOR): LDL near goal of < 100, low chol diet recommended, continue Rx meds. Assessment & Plan (05/22/2021 9:27 AM CDT): LDL at goal of less than 100. Continue current prescription medications. Assessment & Plan (11/22/2020 10:15 AM CDT): LDL improving, LDL goal is < 70. Low cholesterol diet recommended. Continue current meds. Assessment & Plan (05/15/2020 9:26 AM CDT): Low-cholesterol diet recommended. Continue current management. Assessment & Plan (05/26/2018 10:29 AM CDT): Lipid abnormalities are improving with treatment. Nutritional counseling was provided. and Pharmacotherapy as ordered. Lipids will be reassessed 4 months. Simvastatin 20 mg qhs Assessment & Plan (12/22/2017 6:11 PM CDT): Lipid abnormalities are unchanged. Nutritional counseling was provided. and Pharmacotherapy as ordered. Simvastatin 20 mg qd Lipids will be reassessed 4 months. Diverticulosis of large intestine without hemorr ivette 12/19/2017 Assessment & Plan (01/23/2021 2:43 PM AREA OPERATIONS DIRECTOR): Abnormal CT scan of abdomen and pelvis with renal stone protocol. Referred to gastroenterology for screening colonoscopy. Patient could not remember her last colonoscopy nor did I have record of any past colonoscopies in her EHR. Hemangioma of liver 12/19/2017 Overview (12/19/2017): Result Impression IMPRESSION:? 1.?No sonographically evident hemangioma within the imaged right upper abdomen.?If there is clinical concern for hepatic hemangioma, this could be better assessed by liver mass protocol CT or MRI. 2.?Cholecystectomy. 3.?Hepatic steatosis. Result Narrative EXAMINATION:?Right upper quadrant abdominal ultrasound HISTORY:?54-year-old female with reported intra-abdominal hemangioma, elevated liver function tests. Prior cholecystectomy. TECHNIQUE:?Targeted sonographic evaluation of the abdominal right upper quadrant was performed. COMPARISON:?Upper GI series 12/27/2013 FINDINGS:? The gallbladder surgically absent. The hepatic echogenicity is diffusely increased, most consistent with steatosis.?No focal hepatic mass or intrahepatic biliary ductal dilatation is identified.?The common bile duct is normal in caliber, measuring 0.5 cm.?The main portal vein is patent, with normally directed blood flow. The right kidney appears grossly unremarkable, measuring 10.4 x 3.8 x 4.2 cm.?No right renal mass, hydronephrosis, perinephric fluid collection is identified. THIS IS AN ELECTRONICALLY VERIFIED REPORT 12/19/2015 10:32 AM:? Milton Watson M.D.? Milton Watson M.D. Radiologist Tinnitus 02/10/2015 Overview (06/08/2016): Ringing in the ears, bilateral Hypothyroidism 09/06/2013 Overview (04/28/2019): Hypothyroid Assessment & Plan (07/22/2023 8:43 AM CDT): Lab Results Component Value Date TSH 0.84 01/21/2023 Euthyroid Recheck labs Continue lvt 125 mcg Assessment & Plan (01/21/2023 8:59 AM AREA OPERATIONS DIRECTOR): Asymptomatic. Stable. Continue current prescription medications. Assessment & Plan (08/07/2022 9:03 PM CDT): Asymptomatic. Stable. Continue current prescription medications, levothyroxine. Assessment & Plan (01/31/2022 1:16 PM AREA OPERATIONS DIRECTOR): ASx Cont. Current prescription medications. Assessment & Plan (05/22/2021 9:27 AM CDT): Asymptomatic. Stable. Continue current prescription medications. Assessment & Plan (05/15/2020 9:27 AM CDT): Stable. Cont. Current meds. Assessment & Plan (11/09/2019 3:15 PM CDT): Stable. Cont. Current meds. Assessment & Plan (06/24/2019 1:49 PM CDT): Labs ordered, cont current meds. Assessment & Plan (11/25/2018 1:26 PM CDT): Check TSH today. Continue current medication. Assessment & Plan (05/26/2018 10:29 AM CDT): Increased levothyroxine 75 mcg qd to 88 mcg qd Assessment & Plan (12/22/2017 6:11 PM CDT): Stable. Cont. Current meds. Levothyroxine 50 mcg qd. Labs ordered, will follow. Gastroesophageal reflux disease with hiatal ryan ia 09/06/2013 Overview (12/19/2017): GERD w/ hiatal hernia-Followed by GI Assessment & Plan (01/21/2023 9:00 AM AREA OPERATIONS DIRECTOR): Asymptomatic. Stable. Continue current prescription medications. Assessment & Plan (08/07/2022 9:03 PM CDT): Asymptomatic. Stable. Continue current prescription medications, pantoprazole. Assessment & Plan (01/31/2022 1:15 PM AREA OPERATIONS DIRECTOR): Asymptomatic. Stable. Continue current prescription medications. Assessment & Plan (05/22/2021 9:27 AM CDT): Asymptomatic. Stable. Continue current prescription medications. Assessment & Plan (11/22/2020 10:16 AM CDT): Asx. Continue current therapy. Followed by GI. Assessment & Plan (05/15/2020 9:27 AM CDT): Asx. Continue current therapy. Assessment & Plan (11/09/2019 3:15 PM CDT): Asx. Continue current therapy. Assessment & Plan (04/28/2019 12:42 PM AREA OPERATIONS DIRECTOR): Asx. Continue current therapy. Assessment & Plan (05/26/2018 10:30 AM CDT): Worsening symptoms, requests referral to GI. Continue Protonix 40mg qd Assessment & Plan (12/22/2017 6:11 PM CDT): Stable. Cont. Current meds. Protonix 40mg qd. Managed by GI. Resolved Problems Problem Noted Date Diagnosed Date Resolved Date Acute cough 03/10/2023 07/22/2023 Assessment & Plan (03/10/2023 3:19 PM AREA OPERATIONS DIRECTOR): Influenza and COVID tests were ordered, they were both negative. Prescriptions given, increase water intake, rest. Acute bronchitis 03/10/2023 07/22/2023 Assessment & Plan (03/10/2023 3:20 PM AREA OPERATIONS DIRECTOR): Symptoms present for the past 9 days with no improvement. Trial of oral antibiotics, steroids, cough medication. Return to clinic if there is no improvement. Cervical radiculopathy 08/28/202207/21 Assessment & Plan (01/21/2023 9:02 AM AREA OPERATIONS DIRECTOR): Trial of steroid-dose pack, referred to pain mgmt. Cervical spinal stenosis 08/28/2022 Myalgia 08/28/2022 07/22/2023 DDD (degenerative disc disease), thoracic 07/25/2022 07/22/2023 Assessment & Plan (08/07/2022 9:02 PM CDT): Pain exacerbated, Rxs given, will follow. Chronic midline thoracic back pain 07/25/2022 07/22/2023 Assessment & Plan (01/21/2023 9:02 AM AREA OPERATIONS DIRECTOR): Trial of steroid-dose pack. Referred to pain mgmt for further eval/mgmt. Assessment & Plan (08/07/2022 9:01 PM CDT): Consider PT. Xrays ordered, Rxs given. Acute neck pain 07/25/2022 07/22/2023 Assessment & Plan (08/07/2022 9:01 PM CDT): Rxs given, xrays ordered, will follow. Acute pain of right shoulder 07/25/2022 07/22/2023 Assessment & Plan (08/07/2022 9:01 PM CDT): Xrays ordered, Rxs given, will follow. Encounter for screening colonoscopy 09/27/2021 01/31/2022 Overview (09/27/2021): Added automatically from request for surgery [id number] Acute left-sided low back pa in with left-sided sciatica 01/10/2021 07/22/2023 Assessment & Plan (01/23/2021 2:42 PM AREA OPERATIONS DIRECTOR): Pain resolved. [id number] exercises recommended. Will order urinalysis with reflex to culture based on abnormal CT results. Assessment & Plan (01/10/2021 2:54 PM AREA OPERATIONS DIRECTOR): Labs ordered, Rx meds given, notify our office of worsening signs/symptoms. Flank pain 01/10/2021 01/10/2021 Prediabetes 05/15/2020 07/25/2022 Assessment & Plan (01/31/2022 1:15 PM AREA OPERATIONS DIRECTOR): Asx. Labs ordered, will follow. Assessment & Plan (05/15/2020 9:28 AM CDT): Low-carbohydrate diet recommended. Will recheck A1c. Aftercare following surgery 02/21/2020 05/15/2020 Carpal tunnel syndrome on right 02/10/2020 02/21/2020 Overview (02/10/2020): Added automatically from request for surgery [id number] Right lateral epicondylitis 02/10/2020 05/15/2020 Overview (02/10/2020): Added automatically from request for surgery [id number] Elbow pain, chronic, right 12/18/2019 0 07/22/2023 Assessment & Plan (07/04/2020 2:06 PM CDT): Continue meloxicam. Referred to orthopedist for further evaluation and management. Assessment & Plan (12/18/2019 2:37 PM CDT): Rx given, referred to Ortho for further eval/mgmt. H/O elbow surgery 12/18/2019 07/22/2023 Cervical spondylosis 05/20/2019 024 Assessment & Plan (08/07/2022 9:02 PM CDT): Pain exacerbated after fall. Assessment & Plan (05/15/2020 9:28 AM CDT): New start on meloxicam. May also add acetaminophen if needed for pain control. Class 1 obesity due to exces s calories with serious comorbidity and body mass index (BMI) of 30.0 to 30.9 in adult 04/28/2019 07/22/2023 Assessment & Plan (05/22/2021 9:27 AM CDT): Weight reduction, daily exercise and dietary modifications recommended. Assessment & Plan (01/23/2021 2:42 PM AREA OPERATIONS DIRECTOR): Weight reduction, daily exercise and dietary modifications recommended. Assessment & Plan (01/10/2021 2:54 PM AREA OPERATIONS DIRECTOR): Weight reduction, daily exercise and dietary modifications recommended. Assessment & Plan (11/22/2020 10:16 AM CDT): Weight reduction, daily exercise and dietary modifications recommended. Assessment & Plan (07/04/2020 2:06 PM CDT): Weight reduction, daily exercise and dietary modifications recommended. Assessment & Plan (12/18/2019 2:37 PM CDT): Weight reduction, daily exercise and dietary modifications recommended. Assessment & Plan (11/09/2019 3:15 PM CDT): Weight reduction, daily exercise and dietary modifications recommended. Assessment & Plan (06/24/2019 1:50 PM CDT): Weight reduction, daily exercise and dietary modifications recommended. Assessment & Plan (04/28/2019 12:42 PM AREA OPERATIONS DIRECTOR): Unchanged. Encouraged patient to decrease weight, increase daily exercise, and modify diet. Chronic fatigue 05/26/2018 07/22/2023 Assessment & Plan (05/26/2018 10:31 AM CDT): [place] Sleepiness scale done, score is 14. Referral to Sleep medicine. Cervicalgia 04/29/2018 05/15/2020 Assessment & Plan (04/28/2019 12:41 PM AREA OPERATIONS DIRECTOR): C-spine xrays ordered. Continue heating pad 20 mins/hr prn and prn use of flexeril. Consider OTC pain reliever of choice prn. Assessment & Plan (04/29/2018 9:18 PM AREA OPERATIONS DIRECTOR): Patient is leaving for [place] in a few days. I start her on a Medrol Dosepak. Diclofenac twice daily. Give her Flexeril to take p.r.n. And cautioned that this may make her sleepy. I gave her tramadol to take for acute pain p.r.n.. I discussed that if pain continues upon her return, then I would suggest physical therapy. Patient voiced understanding and agreeable with plan of care Elevated LFTs 12/22/2017 11/09/2019 Peripheral neuropathic pain 09/07/2015 07/22/2023 Overview (06/08/2016): Neuropathic pain of left foot Acute maxillary sinusitis 02/10/2015 Overview (06/08/2016): Acute maxillary sinusitis, recurrence not specified Depression 09/06/2013 07/22/2023 Overview (06/08/2016): Depression Acromioclavicular joint arthritis 04/28/2013 07/22/2023 Nephrolithiasis 04/03/2012 05/15/2020 Immunizations Name Administration Dates Next Due Hep A, Adult 11/25/2018,04/22/2018 Influenza, Quadrivalent, Spl it, Preservative Free, Intramuscular 12/16/2019,11/25/2018,12/19/2017,11/30 Influenza, Trivalent, IM (MDV) 12/01/2012 Influenza, Trivalent, Preser vative Free, Intramuscular 01/31/2014,11/27/2012 Influenza, Unspecified 05/30/2023(Deferr ed: Patient Refused),03/10/2023(Deferred: Patient Refused),03/10/2022(Deferred: Patient Refused),01/31/2022(Deferred: Patient Refused),12/01/2020(Deferred: Patient Refused),11/20/2020(Deferred: Patient Refused),12/04/2016 Tdap 04/22/2018 Social History Tobacco Use Types Packs/Day Years Used Date Smoking Tobacco: Former Cigarettes Q uit: 2005 Smokeless Tobacco: Never Tobacco Cessation:Counseling Given: Not Answered Alcohol Use Standard Drinks/Week Comments Not Currently 0 (1 standard drink = 0.6 oz pur e alcohol) AUDIT-C Answer Date Recorded Q1: How often do you have a drink containing alcohol? Never 01/21/2023 Q2: How many drinks containi ng alcohol do you have on a typical day when you are drinking? Patient does not drink Q3: How often do you have si x or more drinks on one occasion? 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 Not on file Not on file Last Filed Vital Signs Vital Sign Reading Time Taken Comments Blood Pressure 108/80 07/22/2023 8:37 AM CDT Pulse 72 07/22/2023 8:37 AM CDT Temperature 37 ??C (98.6 ??F) 03/10/2023 10: 58 AM AREA OPERATIONS DIRECTOR Respiratory Rate 16 07/22/2023 8:37 AM CDT Oxygen Saturation 98% 07/22/2023 8:37 AM CDT Inhaled Oxygen Concentration - - Weight 72.4 kg (159 lb 11.2 oz) 07/22/2023 8:37 AM CDT Height 162.6 cm (5' 4.02 ) 07/22/2023 8:37 AM CD T Body Mass Index 27.4 07/22/2023 8:37 AM CDT Plan of Treatment Not on file Procedures Procedure Name Priority Date/Time Associated Diagnosis Comments SCREENING MAMMOGRAM BILATERAL W JOSÉ ANTONIO W IMPLANTS Schedule Routine, Read Routine (OP Routine) 07/12/2023 12:59 PM CDT Screening mammogram, encounter for COLONOSCOPY 01/18/2022 8:48 AM AREA OPERATIONS DIRECTOR HEPATITIS C ANTIBODY Routine 04/28/2019 10:52 AM AREA OPERATIONS DIRECTOR Encounter for hepatitis C screening test for low risk patient from Last 3 Months or Most Recently Relevant to Health Maintenance Results * Screening Mammogram Bilateral W José Antonio W Implants (07/12/2023 12:59 PM CDT) Anatomical Region Laterality Modality Breast Bilateral Mammography 07/14/2023 8:33 AM CDT Impressions 07/14/2023 8:33 AM CDT There is no mammographic evidence of malignancy. A 1 year screening mammogram is recommended. BI-RADS: 1 - Negative. The patient has been or will be contacted. The patient will be entered into a reminder system with a target due date of 1 year for her next mammogram. Electronically signed by: Alysha Powers M.D. Narrative 07/14/2023 8:33 AM CDT EXAMINATION: SCREENING MAMMOGRAM BILATERAL W JOSÉ ANTONIO W IMPLANTS ORDERING HEALTHCARE PROVIDER: SELF SCREENING MAMMOGRAM HISTORY: Routine screening mammography. COMPARISON: ??05/28/2022, 04/27/2021, 04/06/2020, 02/17/2019, 01/12/2018 TECHNIQUE: CC and MLO views of the bilateral breasts were obtained with implant in view and implant displaced view utilizing digital technique using breast tomosynthesis with C view. Computer aided detection was utilized. FINDINGS: DENSITY: The tissue of the bilateral breasts is heterogeneously dense, which may obscure small masses. BREASTS: There are bilateral subglandular silicone implants. ??There are no suspicious masses, suspicious calcifications, or other suspicious findings in either breast. There has been no suspicious interval change. us Self Screening Mammogram IMG MAMMO PROCEDURES Fi nal Result * COLONOSCOPY (01/18/2022 8:48 AM AREA OPERATIONS DIRECTOR) Anatomical Region Laterality Modality Other Narrative Procedure Note Tabatha Knowles MD - 01/18/2022 8:48 AM CST [facility] Patient Name: Carla Summers Procedure Date: 01/18/2022 8:48 AM Date of : 1960 Admit Type: Outpatient Age: 61 Gender: Female Attending MD: Tabatha Knowles M.D. Room: [facility] ENDOSCOPY ROOM 1 Note Status: Finalized Patient Profile: This is a 61 year old female. History of colonpolyps. No family history of colon cancer. Procedure: Colonoscopy Indications: High risk colon cancer surveillance: Personalhistory of colonic polyps, Last colonoscopy: 2017 Referring MD: Marlene Kumar D.O. Providers: Tabatha Knowles M.D. Impression: - The entire examined colon is normal. - Internal hemorrhoids. - No specimens collected. Recommendation: - Repeat colonoscopy in 6 years for screeningpurposes. - Continue present medications. Medicines: Monitored Anesthesia Care Complications: No immediate complications. Estimated Blood Loss: Estimated blood loss: none. Procedure: Pre-Anesthesia Assessment: - Prior to the procedure, a History and Physicalwas performed, and patient medications and allergieswere reviewed. The patient's tolerance of previous anesthesia was also reviewed. The risks andbenefits of the procedure and the sedation options and risks were discussed with the patient. All questions were answered, and informed consent was obtained. Prior Anticoagulants: The patient has taken noanticoagulant or antiplatelet agents. ASA Grade Assessment: II -A patient with mild systemic disease. After reviewing the risks and benefits, the patient was deemed in satisfactory condition to undergo the procedure. The benefits, risks and alternatives of theprocedure and sedation were discussed and informed consentwas obtained. All questions were answered. Please referto the signed informed consent document in the medical record. The bowel preparation used was Miralax and bisacodyl tablets via split dose instruction. The scope was passed under direct vision. The Pediatric Colonoscope PCF-H190L [id number] was introducedthrough the anus and advanced to the the cecum, identifiedby appendiceal orifice and ileocecal valve. Thequality of the bowel preparation was good. Bowel prep was administered using a split dose. Findings: The perianal and digital rectal examinations were normal. The cecum appeared normal. The terminal ileum was normal. The colon (entire examined portion) appeared normal. No polyps and no mass lesions noted. Internal hemorrhoids were found during retroflexion. The hemorrhoids were small. Electronically signed by Tabatha Knowles M.D. Tabatha Knowles M.D. 01/18/2022 10:56:13 AM Number of Addenda: 0 Note Initiated On: 01/18/2022 8:48 AM Procedure Code(s): --- Professional --- 14773, Colonoscopy, flexible; diagnostic, including collection of specimen(s) by brushing or washing, when performed (separateprocedure) Diagnosis Code(s): --- Professional --- Z86.010, Personal history of colonic polyps K64.8, Other hemorrhoids CPT copyright 2020 [employer]. All rights reserved. The codes documented in this report are preliminary and upon simulation educator reviewmay be revised to meet current compliance requirements. Recognized by the [employer] for promoting quality in endoscopy us Tabatha Knowles MD ENDOSCOPY PROCEDURES Final Result * Hepatitis C antibody (04/28/2019 10:52 AM AREA OPERATIONS DIRECTOR) Hep C Ab Negative Negative JOSR LOVE (JULIO C) Comment:Testing performed by : [facility], [address] [place] [address], [place]., [address] Blood specimen (specimen) 04/28/2019 10:52 AM AREA OPERATIONS DIRECTOR 04/28/2019 6:45 PM AREA OPERATIONS DIRECTOR us Marlene Kumar DO LAB MICROBIOLOGY - GENERAL ORDERABLES Final Result [facility] ([facility]) [facility] Department [place] [address] from Last 3 Months or Most Recently Relevant to Health Maintenance Insurance [employer] [facility] Advance Directives For more information, please contact: [phone] * Full Code (Latest Code Status on File) Date Activated Date Inactivated Comments 01/18/2022 8:37 AM 01/18/2022 3:28 PM * Full Code Date Activated Date Inactivated Comments 01/18/2022 8:37 AM 01/18/2022 8:37 AM Care Teams Personalized Living Manager Relationship Specialty Start Date End Date Sarah Hensley NP [address] [place] [address] PCP - General Nurse Practitioner 09/22/23
--- OUTSIDE RECORDS SUMMARY | 2024-03-25 22:55 | XMS_ITS ---
Care Plan - [facility] Created on: March 25, 2024 YAMILET MARINO : 1960 Sex: Female Author Organization [facility] Address [address] [place] [address] Phone Care Team Providers Care Sales Mgr Name Role Phone ISMAEL CABRERA DO Primary Care Provider [phone] FREDDY ROSALES, PARVIZ C Unavailable [phone]
--- OUTSIDE RECORDS SUMMARY | 2024-03-25 22:55 | XMS_ITS | Clinical Summary ---
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 Assessment & Plan (08/07/2022 9:02 PM CDT): Blood pressure at goal less than 140/90, continue current prescription medications, lisinopril. Assessment & Plan (01/31/2022 1:15 PM GENERATION TECHNOLOGIST): Blood pressure at goal less than 140/90, [...] follow. Assessment & Plan (04/28/2019 12:41 PM GENERATION TECHNOLOGIST): Advised against the use of Adipex for weight mgmt. Continue to monitor bp. Notify our office if bp > 140/90. Snoring 05/26/2018 Assessment & Plan (05/26/2018 10:31 AM CDT): Goodrich Sleepiness scale done, score is 14. Referral [...] day Assessment & Plan (01/21/2023 9:01 AM GENERATION TECHNOLOGIST): LDL at goal of less than 100, continue current prescription medications. Assessment & Plan (08/07/2022 9:03 PM CDT): LDL at goal of less than 100, continue current prescription medications, simvastatin. Assessment & Plan (01/31/2022 1:16 PM GENERATION TECHNOLOGIST): LDL near goal of < 100, low [...] 12/19/2017 Assessment & Plan (01/23/2021 2:43 PM GENERATION TECHNOLOGIST): Abnormal CT scan of abdomen and pelvis [...] mcg Assessment & Plan (01/21/2023 8:59 AM GENERATION TECHNOLOGIST): Asymptomatic. Stable. Continue current prescription medications. Assessment & Plan (08/07/2022 9:03 PM CDT): Asymptomatic. Stable. Continue current prescription medications, levothyroxine. Assessment & Plan (01/31/2022 1:16 PM GENERATION TECHNOLOGIST): ASx Cont. Current prescription medications. Assessment & [...] GI Assessment & Plan (01/21/2023 9:00 AM GENERATION TECHNOLOGIST): Asymptomatic. Stable. Continue current prescription medications. Assessment & Plan (08/07/2022 9:03 PM CDT): Asymptomatic. Stable. Continue current prescription medications, pantoprazole. Assessment & Plan (01/31/2022 1:15 PM GENERATION TECHNOLOGIST): Asymptomatic. Stable. Continue current prescription medications. Assessment & Plan (05/22/2021 9:27 AM CDT): Asymptomatic. Stable. Continue current prescription medications. Assessment & Plan (11/22/2020 10:16 AM CDT): Asx. Continue current therapy. Followed by GI. Assessment & Plan (05/15/2020 9:27 AM CDT): Asx. Continue current therapy. Assessment & Plan (11/09/2019 3:15 PM CDT): Asx. Continue current therapy. Assessment & Plan (04/28/2019 12:42 PM GENERATION TECHNOLOGIST): Asx. Continue current therapy. Assessment & Plan (05/26/2018 10:30 AM CDT): Worsening symptoms, requests referral to GI. Continue Protonix 40mg qd Assessment & Plan (12/22/2017 6:11 PM CDT): Stable. Cont. Current meds. Protonix 40mg qd. Managed by GI. Resolved Problems Problem Noted Date Diagnosed Date Resolved Date Acute cough 03/10/2023 07/22/2023 Assessment & Plan (03/10/2023 3:19 PM GENERATION TECHNOLOGIST): Influenza and COVID tests were ordered, they were both negative. Prescriptions given, increase water intake, rest. Acute bronchitis 03/10/2023 07/22/2023 Assessment & Plan (03/10/2023 3:20 PM GENERATION TECHNOLOGIST): Symptoms present for the past 9 days with no improvement. Trial of oral antibiotics, steroids, cough medication. Return to clinic if there is no improvement. Cervical radiculopathy 08/28/202207/21 Assessment & Plan (01/21/2023 9:02 AM GENERATION TECHNOLOGIST): Trial of steroid-dose pack, referred to pain mgmt. Cervical spinal stenosis 08/28/2022 Myalgia 08/28/2022 07/22/2023 DDD (degenerative disc disease), thoracic 07/25/2022 07/22/2023 Assessment & Plan (08/07/2022 9:02 PM CDT): Pain exacerbated, Rxs given, will follow. Chronic midline thoracic back pain 07/25/2022 07/22/2023 Assessment & Plan (01/21/2023 9:02 AM GENERATION TECHNOLOGIST): Trial of steroid-dose pack. Referred to pain [...] (09/27/2021): Added automatically from request for surgery [id number] Acute left-sided low back pa in with left-sided sciatica 01/10/2021 07/22/2023 Assessment & Plan (01/23/2021 2:42 PM GENERATION TECHNOLOGIST): Pain resolved. Ylcvm-oz-aabwrd exercises recommended. Will order urinalysis with reflex to culture based on abnormal CT results. Assessment & Plan (01/10/2021 2:54 PM GENERATION TECHNOLOGIST): Labs ordered, Rx meds given, notify our office of worsening signs/symptoms. Flank pain 01/10/2021 01/10/2021 Prediabetes 05/15/2020 07/25/2022 Assessment & Plan (01/31/2022 1:15 PM GENERATION TECHNOLOGIST): Asx. Labs ordered, will follow. Assessment & Plan (05/15/2020 9:28 AM CDT): Low-carbohydrate diet recommended. Will recheck A1c. Aftercare following surgery 02/21/2020 05/15/2020 Carpal tunnel syndrome on right 02/10/2020 02/21/2020 Overview (02/10/2020): Added automatically from request for surgery [id number] Right lateral epicondylitis 02/10/2020 05/15/2020 Overview (02/10/2020): Added automatically from request for surgery [id number] Elbow pain, chronic, right 12/18/2019 0 07/22/2023 [...] recommended. Assessment & Plan (01/23/2021 2:42 PM GENERATION TECHNOLOGIST): Weight reduction, daily exercise and dietary modifications recommended. Assessment & Plan (01/10/2021 2:54 PM GENERATION TECHNOLOGIST): Weight reduction, daily exercise and dietary modifications [...] recommended. Assessment & Plan (04/28/2019 12:42 PM GENERATION TECHNOLOGIST): Unchanged. Encouraged patient to decrease weight, increase daily exercise, and modify diet. Chronic fatigue 05/26/2018 07/22/2023 Assessment & Plan (05/26/2018 10:31 AM CDT): Goodrich Sleepiness scale done, score is 14. Referral to Sleep medicine. Cervicalgia 04/29/2018 05/15/2020 Assessment & Plan (04/28/2019 12:41 PM GENERATION TECHNOLOGIST): C-spine xrays ordered. Continue heating pad 20 mins/hr prn and prn use of flexeril. Consider OTC pain reliever of choice prn. Assessment & Plan (04/29/2018 9:18 PM GENERATION TECHNOLOGIST): Patient is leaving for [place] in a few days. I start her [...] joint arthritis 04/28/2013 07/22/2023 Nephrolithiasis 04/03/2012 05/15/2020 Encounters Date Type Department Care Team Description 01/21/2024 Telephone [facility] Primary Care at [address] [place] [address] John Byrnes Appointment from Last 3 Months Immunizations Name Administration Dates Next Due Hep A, Adult 11/25/2018,04/22/2018 Influenza, Quadrivalent, Spl it, Preservative Free, Intramuscular 12/16/2019,11/25/2018,12/19/2017,11/30 Influenza, Trivalent, IM (MDV) 12/01/2012 Influenza, Trivalent, Preser vative Free, Intramuscular 01/31/2014,11/27/2012 Influenza, Unspecified 05/30/2023(Deferr ed: Patient Refused),03/10/2023(Deferred: Patient Refused),03/10/2022(Deferred: Patient Refused),01/31/2022(Deferred: Patient Refused),12/01/2020(Deferred: Patient Refused),11/20/2020(Deferred: Patient Refused),12/04/2016 Tdap 04/22/2018 Surgical History Surgery Date Site/Laterality Comments ANKLE SURGERY Ankle surgery FOOT SURGERY foot surgery KNEE SURGERY knee surgery VAGINAL HYSTERECTOMY Hysterectomy, vaginal CHOLECYSTECTOMY Cholecystectomy ARM SURGERY arm surgery OTHER SURGICAL HISTORY wrist sugery TUBAL LIGATION INCONTINENCE SURGERY APPENDECTOMY HYSTERECTOMY OOPHORECTOMY AUGMENTATION MAMMAPLASTY CARPAL TUNNEL RELEASE 01/02/2020 Right COLONOSCOPY 03/03/2017 - 03/02/2018 Medical History Medical History Date Comments Thyroid disease Hypertension GERD (gastroesophageal reflux disease) Hypothyroidism Hyperlipidemia Family History Medical History Relation Name Comments Other Brother 2 Alive and well; Hypertension Father Hypertension; Cancer Mother Marie Diabetes Mother Marie Diabetes mellit us; Stroke Mother Marie 04/04 Other Sister 2 Alive and well; Relation Name Status Comments Brother 1 Alive Brother 2 Father Mother Marie Sister 1 Alive Sister 2 Social History Tobacco Use Types Packs/Day Years Used Date Smoking Tobacco: Former Cigarettes Q uit: 2004 Smokeless Tobacco: Never Tobacco Cessation:Counseling Given: Not [...] on file Legal Sex Female 3:19 AM GENERATION TECHNOLOGIST Gender Identity Not on file Sexual Orientation Not on file 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 on file Not on file Not on file Obstetrics History Para Term AB IAB SAB Ectopic Multiple Livin g Live Births 2 2 2 Date Outcome GA Total Labor Labor/2nd/3rd Weight Sex Type Anes PTL Diane A1 A5 Name Clin Term Term Last Filed Vital Signs Vital Sign Reading Time Taken Comments Blood Pressure 108/80 07/22/2023 8:37 AM CDT Pulse 72 07/22/2023 8:37 AM CDT Temperature 37 ??C (98.6 ??F) 03/10/2023 10: 58 AM GENERATION TECHNOLOGIST Respiratory Rate 16 07/22/2023 8:37 AM CDT Oxygen Saturation 98% 07/22/2023 8:37 AM CDT Inhaled Oxygen Concentration - - Weight 72.4 kg (159 lb 11.2 oz) 07/22/2023 8:37 AM CDT Height 162.6 cm (5' 4.02 ) 07/22/2023 8:37 AM CD T Body Mass Index 27.4 07/22/2023 8:37 AM CDT Plan of Treatment Health Maintenance Due Date Last Done Comments Hepatitis B Screening 1978 Zoster Vaccine (1 of 2) 2010 Influenza Vaccine (#1) 2023 , 11/25/2018, 12/19/2017, Additional history exists Regular Well Visit/Exam 18-64 01/22/2024 01/21/2023, 01/31/2022, 11/20/2020, Additional history exists Breast Cancer Screening-Mammogram 07/11/2024 07/12/2023, 05/28/2022, 04/27/2021, Additional history exists Depression Screening 07/21/2024 07/22/2023, 03/10/2023, 01/21/2023, Additional history exists Colon Cancer Screening-Colonoscopy 01/18/2027 01/18/2022, 06/20/2017 DTaP/Tdap/Td Vaccine (2 - Td or Tdap) 04/22/2028 04/22/2018 Hepatitis C Screening Completed 04/28/2019 Colon Cancer Screening-CT Colonography Discontinued 01/18/2022, 06/20/2017 Colon Cancer Screening-DNA Stool Discontinued 01/18/2022, 06/20/2017 Colon Cancer Screening-FIT Discontinued 01/18/2022, Colon Cancer Screening-Sigmoidoscopy Discontinued 01/18/2022, 06/20/2017 Pneumococcal vaccine <65 Aged Out No longer eligible based on patient's age to complete this topic Procedures Procedure Name Priority Date/Time Associated Diagnosis Comments SCREENING MAMMOGRAM BILATERAL W JOSÉ ANTONIO W IMPLANTS Schedule Routine, Read Routine (OP Routine) 07/12/2023 12:59 PM CDT Screening mammogram, encounter for COLONOSCOPY 01/18/2022 8:48 AM GENERATION TECHNOLOGIST HEPATITIS C ANTIBODY Routine 04/28/2019 10:52 AM GENERATION TECHNOLOGIST Encounter for hepatitis C screening test for [...] nal Result * COLONOSCOPY (01/18/2022 8:48 AM GENERATION TECHNOLOGIST) Anatomical Region Laterality Modality Other Narrative Procedure Note Tabatha Knowles MD - 01/18/2022 8:48 AM CST [facility] Patient Name: Carla Summers Procedure Date: 01/18/2022 8:48 AM Date of : 1960 Admit Type: Outpatient Age: 61 Gender: Female Attending MD: Tabatha Knowles M.D. Room: [facility] 1 Note Status: Finalized Patient [...] under direct vision. The Pediatric Colonoscope [id number]-H190L [id number] was introducedthrough the anus and advanced to [...] 8:48 AM Procedure Code(s): --- Professional --- 76123, Colonoscopy, flexible; diagnostic, including collection of specimen(s) by brushing or washing, when performed (separateprocedure) Diagnosis Code(s): --- Professional --- Z86.010, Personal history of colonic polyps K64.8, Other hemorrhoids CPT copyright 2020 [employer]. All rights reserved. The codes documented in this report are preliminary and upon cut off saw operator metal reviewmay be revised to meet current compliance requirements. Recognized by the [employer] for promoting quality in endoscopy us Tabatha Knowles MD ENDOSCOPY PROCEDURES Final Result * Hepatitis C antibody (04/28/2019 10:52 AM GENERATION TECHNOLOGIST) Hep C Ab Negative Negative JOSR LOVE (JULIO C) Comment:Testing performed by : [facility], [address] [place] [address]., [id number] Blood specimen (specimen) 04/28/2019 10:52 AM GENERATION TECHNOLOGIST 04/28/2019 6:45 PM GENERATION TECHNOLOGIST Marlene Kumar DO LAB MICROBIOLOGY - GENERAL ORDERABLES Final Result Performing Organization Address City/State/[facility] Co de Phone Number [facility] ([place]) [address] [facility] [place] [address] from Last 3 Months or Most Recently Relevant to Health Maintenance Insurance [facility] Advance Directives For more information, please contact: [phone] * Full Code (Latest Code Status on File) Date Activated Date Inactivated Comments 01/18/2022 8:37 AM 01/18/2022 3:28 PM * Full Code Date Activated Date Inactivated Comments 01/18/2022 8:37 AM 01/18/2022 8:37 AM Care Teams Extruder Relationship Specialty Start Date End Date Sarah Hensley NP [address] [place] [address] PCP - General Nurse Practitioner 09/22/23
--- OUTSIDE RECORDS SUMMARY | 2024-03-25 22:55 | XMS_ITS ---
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 months. and Denies a fear of falling. : 2 and para 2. Sexual: Not sexually active. Other: Diagnostic fiberoptic colonoscopy 01/18/2022. Screening mammogram was performed 05/28/2022. A DXA of the lateral lumbar spine was performed 01/19/2018 wnl Diagnoses: Hyperlipidemia. Hypothyroidism Surgical: - Hysterectomy 2011 Social History Tobacco use: Tobacco non-user. Alcohol: No consumption of alcohol and not using alcohol. Drug Use: Not using drugs and not using drugs. Allergies - Penicillins Family History Paternal: Systemic hypertension father Maternal: Diabetes mellitus mom, mgm Review Of Systems Systemic: No systemic symptoms other then noted and no recent weight loss. Head: No head symptoms other then noted. Neck: No neck pain. Otolaryngeal: No otolaryngeal symptoms other than noted. Cardiovascular: No cardiovascular symptoms other than noted. Pulmonary: No pulmonary symptoms other than noted. Gastrointestinal: Normal appetite No GI symptoms other than noted. Genitourinary: No genitourinary symptoms other than noted. Endocrine: No endocrine symptoms other than noted. Hematologic: No easy bleeding and no tendency for easy bruising. Musculoskeletal: No musculoskeletal symptoms other than noted. Neurological: No neurological symptoms other than noted and no fainting passing out with needles or medical procedures. Psychological: No sleep disturbances other than noted. Skin: No skin symptoms other than noted. Physical Findings - Vitals taken 08/11/2023 02:45 pm BP-Sitting R 118/68 mmHg BP Cuff Size Regular Pulse Rate-Sitting 90 bpm Temp-Rectal 96.4 F Height 62.5 in Weight 156 lbs Body Mass Index 28.1 kg/m2 Body Surface Area 1.7 m2 Pain Level 4 Pain Level Note Thoracic Oxygen Saturation 98 % Musculoskeletal System: General/bilateral: Musculoskeletal Scales: Value Lumbar oswestry score 16 Psychiatric: Psychiatric: Value PHQ9 score: 0 Constitutional: Well developed. Well nourished. No acute distress. HEENT: NC/AT. Anicteric. Clear Conjunctiva. PERRLA. MM's pink/moist. No discharge via nares. No discharge via EAC. Neck supple. No thyromegally. No palpable masses. No lymphadenopathy in cervical chain bilaterally. CVS: RRR. No murmurs. No peripheral edema. Peripheral pulses palpable in all extremities. Pulmonary: CTA bilaterally. No wheezes. No rales. No crackles. No rubs. Normal chest expansion. Spine/MSK: Tender upper thoracic parspinal muscles with muscle spasm noted. Kyphosis. Reduced ROM thoracic and lumbar spine. Gait: Not antalgic. Neuro: Awake. Alert. Oriented x3. DTR's intact in all extremities. DTR's equal in all extremities. No sensory deficit. No motor deficit. Psych: No apparent distress. Mood normal. Affect normal. No pain behaviors. Skin: Normal. Catharine, warm, dry. Tests Educational Testing: Questionnaires PHQ-9: Value SOAPP-R: total score 1 Assessment - [M54.6 - Pain in thoracic spine] Pain in thoracic spine - [M40.204 - Unspecified kyphosis, thoracic region] Kyphosis - [M79.10 - Myalgia, unspecified site] Myalgia - [G89.4 - Chronic pain syndrome] Chronic pain syndrome Therapy - Reviewed & agreed to staff entries. - Encouragement to exercise. - Clinical summary provided to patient. - Plan of care reviewed and agreed to by the patient. Counseling/Education - Lifestyle education Discussed Muscle relaxer: monitor for side effects. Continue heat. STart PT. FU 2 months. Plan StartCited - Myalgia, unspecified site Methocarbamol 500 MG tablet One tablet three times a day as needed for muscle spasm/stiffness, 30 days, 1 refills EndCited StartCited - Pain in thoracic spine Therapy/Physical Therapy: Physical Therapy Instructions: Evaluate and Treat upper back pain, reduced ROM, kyphosis, muscle pain and weakness. Establish HEP. in [place] if someone takes her insurance there EndCited Practice Management Use of tobacco assessment performed Review of medications documented; Screening for adult depression: impression and score 0; [08360] Established outpatient, medically appropriate H&P, moderate level decision making, 30+ minutes. A total of [40 ] minutes were spent caring for this patient. Please see details of care in the notes above. Results of this interaction were communicated directly to the patient's referring and/or primary care provider. All imaging studies and test results discussed in the above document were personally reviewed and evaluated by the performing provider. For all patients on acute or chronic opioids, ongoing need for opioid analgesia is assessed at each visit with consideration of discontinuation or wean to lowest effective dose when possible and appropriate. Contents of this document have been edited for correctness, but may be subject to typographical or workforce specialist errors. Verify all diagnoses, medications, dosages, and patient instructions with patient and/or the originator of this document. Health Reminders - Assess Blood Pressure satisfied 08/11/2023. - Assess BMI satisfied 08/11/2023. - Assess Need for CT Lung Screen satisfied 08/11/2023. - Assess Tobacco Use satisfied 08/11/2023. - Colorectal Cancer Screening satisfied 01/18/2022. - Depression Screening satisfied 08/11/2023. - Follow Up Plan BMI Management satisfied 08/11/2023. - Mammogram satisfied 05/28/2022. User Defined 1 Administered injection of trigger point(s), one or two muscle group(s): Informed consent-The procedure was described in detail to the patient. Risks explained included possible infection, bleeding, or allergic reaction to medication. The patient has also had an explanation of the side effects of corticosteroid. Allergies confirmed. The patient has had an opportunity to have all questions answered both on the day of initial consultation and again today. The patient wishes to proceed and has signed a procedure specific consent form. ~DESCRIPTION OF PROCEDURE: The patient assumed a seated position. By palpation, trigger points were identified and marked with a sterile skin marker. Area(s) were cleaned with a betasept/alcohol solution. A 27 gauge, 1.5-inch needle was advanced toward each trigger point until pain was reproduced or muscle twitch elicited. After negative aspiration for blood, 0.5 - 1 ml of a solution containing 10mg Kenalog mixed with 0.5% Bupivicaine was injected in a fanned-out distribution at each trigger point, for a total volume of 5 mL being given. Sterile bandages were placed over the injection sites.The patient appeared to tolerate the procedure well. ~DISPOSITION: The patient is discharged home in good condition after a 10-minute period of observation with stable vital signs. Patient tolerated well. NO complications noted. . * Progress note Date Encounter Last Documented by 06/19/2023 WELL WOMAN - ESTABLISHED PT Last documented on 06/19/2023; 9:44 AM, ROBINSON CARDENAS-; [facility] Active Problems & Conditions - Gynecologic Services [...]
--- OUTSIDE RECORDS SUMMARY | 2024-03-25 22:55 | XMS_ITS | Clinical Summary ---
Author Organization [facility] Address [address] [place] [address] Phone Care Team Providers Care Bingo Manager Name Role Phone ISMAEL CABRERA DO Primary Care Provider [phone] FREDDY ROSALES, PARVIZ Otto Unavailable [phone] Reason for Visit and Chief Complaint The Chief Complaint is: WWE. no concerns today. No new sexual partners Problems Includes: Problems addressed during this encounter and other active Problems All Visits Onset Date Resolved Date Provider Condition S tatus Hypertension Systemic 06/19/2023 ROBINSON GRIFFIN WHNP-BC Active Last Documented On 4 9:34AM ; [facility] Gynecologic Services Thermal Endometrial Ablation 01/15/2018 ROBINSON GRIFFIN WHNP-BC Active Last Documented On 8 10:00AM ; [facility] Hypothyroidism 01/15/2018 ROBINSON GRIFFIN WHNP-BC Active Last Documented On 8 10:00AM ; [facility] Postsurgical State 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/15/2018 ROBINSON AMADO WHNP-BC Active Last Documented On 8 9:55AM ; [facility] Plan of Treatment - Follow-up visit 1 year or as needed - Last Documented On 05/27/2022 3:27PM ; [facility] - Clinical summary provided to patient - Last Documented On 05/27/2022 3:27PM ; [facility] Pending Tests Order Diagnosis Results Due Ordering P carlovider In office procedures - *Clia Waived Labs *FOBT* Fecal Occult Blood Test Encounter for screening for malignant neoplasm of rectum 06/10/22 ROBINSON GRIFFIN WHNP-BC Last Documented On 4 11:07AM ; [facility] Radiology @ other - *MAMMOGRAPHY SCREENING MAMMOGRAM Encntr screen mammogram for malignant neoplasm of breast 07/03/23 ROBINSON GRIFFIN WHNP-BC Last Documented On 4 9:47AM ; [facility] Instructions to patient Instructions for patient : B reast Self Exam discussed Last Documented On 3 3:06PM ; [facility] Lose weight Last Documented On 3 3:07PM ; [facility] Education and Decision Aids were provided during visit for: Patient Education: Daily juaquin cium and vitamin D Last Documented On 3 3:06PM ; [facility] Patient Education: weight be aring exercise Last Documented On 3 3:06PM ; [facility] Assessments Includes: Assessments from this encounter Findings - NORMAL FEMALE EXAM [Z01.419 - Encounter for gynecological examination (general) (routine) without abnormal findings] - Last Documented On 05/27/2022 3:27PM ; [facility] Instructions Includes: Instructions from this encounter Instructions to patient Instructions for patient : B reast Self Exam discussed Last Documented On 3 3:06PM ; [facility] Lose weight Last Documented On 3 3:07PM ; [facility] Education and Decision Aids were provided during visit for: Patient Education: Daily juaquin cium and vitamin D Last Documented On 3 3:06PM ; [facility] Patient Education: weight be aring exercise Last Documented On 3 3:06PM ; [facility] Medical Equipment - Implanted Devices Includes: Current Devices No Medical Equipment Recorded Medications Includes: Medications discussed during this encounter and other current Medications Current Medications (continue as prescribed) Methocarbamol 500 MG Oral Tablet 08/11/2023 Provider: JUSTINE SINGLETON, MECHANICAL ENGINEERING OFFICER-BC Diagnosis: Myalgia, unspeci fied site One tablet three times a day as needed for muscle spasm/stiffness Last Documented On 4 3:16PM By JUSTINE COHN MECHANICAL ENGINEERING OFFICER-BC ; [facility] Levothyroxine Sodium 125 MCG Oral Tablet 03/24/2023 Provider: Diagnosis: Last Documented On 4 3:16PM By JUSTINE PARKER ; [facility] Lisinopril 10 MG Oral Tablet 05/11/2020 Provider: Diagnosis: Last Documented On 4 3:16PM By JUSTINE PARKER ; [facility] Synthroid 50 MCG Tablet 12/19/2015 Provider: Diagnosis: Last Documented On 4 3:16PM By JUSTINE PARKER ; [facility] Medications Administered Includes: Administered Medications from this encounter No Administered Medications Recorded Vital Signs Includes: Vital Signs from this encounter Vital Name 05/27/2022 03:14P Blood Pressure Sitting L 124/86 BP Cuff Size Regular Temp-Temporal 98 Height (in) 64 Weight (lb) 202 Body Mass Index 34.7 Body Surface Area 2 Last Documented: On 05/27/2022 3:16PM ; [facility] Results Includes: Results discussed during this encounter No Results Recorded For Specified Dates History of Present Illness Includes: History of Present Illness from this encounter JORDAN MARINO is a 61 year old female. - Allergy list reviewed - Medication list reviewed - Primary Care Provider: Dr. Marlene cabrera Social History Description Last Updated Not using alcohol 05/27/2022 Last Documented On 3 3:27PM ; [facility] Not using drugs 05/27/2022 Last Documented On 3 3:27PM ; [facility] Tobacco non-user 05/27/2022 Last Documented On 3 3:27PM ; [facility] Non-smoker 02/18/2019 Last Documented On 3 3:06PM ; [facility] Smoking Status Unknown Procedures and Surgical History Includes: Procedures from this encounter Procedures Code Diagnosis Performing Provider Service L ocation Service Date low fat diet Last Documented On 3 3:07PM ; [facility] use of tobacco assessment performed 1000F Last Documented On 3 3:13PM ; [facility] review of medications documented 1160F Last Documented On 3 3:13PM ; [facility] patient recently had a dexa scan 8 Last Documented On 3 3:13PM ; [facility] a BD Affirm was performed Last Documented On 3 3:26PM ; [facility] Surgical History Last Updated History of hysterectomy 201105/17/2021 Last Documented On 3 3:06PM ; [facility] Surgical / procedural histor y gal bladder removed, ~surgery both arms ~surgery both legs ~Right knee ~Left foot ~Endometrial ablation ~Lithotripsy ~Breast Implants (silicone) ~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 ~Bladder sling after hyst ~bunion removed from left foot 05/17/2021 Last Documented On 3 3:06PM ; [facility] Medical History Includes: Medical History addressed during this encounter Description Last Updated Last mammogram date: 04/27/2021 3 Last Documented On 3 3:27PM ; [facility] Sexually active 05/27/2022 Last Documented On 3 3:27PM ; [facility] History of colonoscopy fiber optic was performed 2017 or March at [facility] 05/27/2022 Last Documented On 3 3:27PM ; [facility] History of screening mammogram was perfo rmed 04/27/2021 05/27/2022 Last Documented On 3 3:27PM ; [facility] 2 05/17/2021 Last Documented On 3 3:06PM ; [facility] History of a DXA of the lateral lumbar s pine was performed 01/19/2018 wnl 05/17/2021 Last Documented On 3 3:06PM ; [facility] History of hyperlipidemia 05/17/2021 Last Documented On 3 3:06PM ; [facility] History of hypothyroidism 05/17/2021 Last Documented On 3 3:06PM ; [facility] LMP: 201105/17/2021 Last Documented On 3 3:06PM ; [facility] Para 2 05/17/2021 Last Documented On 3 3:06PM ; [facility] Family History Includes: Family History addressed during this encounter Description Last Updated Maternal history of diabetes mellitus mo bia, mgm 02/18/2019 Last Documented On 3 3:06PM ; [facility] Paternal history of hypertension father 02/18/2019 Last Documented On 3 3:06PM ; [facility] Family history of hypertension father Last Documented On 3 3:06PM ; [facility] Review of Systems Includes: Review of Systems [...] Active Last Documented On 4 9:37AM ; [facility] Encounters Encounter Provider Location Date Check-In Time Check-Out Time Diagnosis [facility] 05/28/19 23 3:03PM 3:28PM Normal Female Exam Insurance Includes: Active Insurance Policies Plan Name Member ID Group # Subscriber Relationship Effect sandy Dates 1 - [facility] [employer] [id number] YAMILET MARINO Self Clinical Notes Includes: Clinical Notes from this encounter * Progress note Date Encounter Last Documented by 05/27/2022 [facility] - ESTABLISHED PT Last documented on 05/27/2022; 3:27 PM, [facility] Active Problems & Conditions - Gynecologic Services Thermal Endometrial Ablation - Hypothyroidism - Postsurgical State 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 no concerns today. No new sexual partners. History of Present Illness YAMILET MARINO is a 61 year old female. - Allergy list reviewed - Medication list reviewed - Primary Care Provider: Dr. Marlene cabrera Current Medication - [facility] Omeprazole 20MG Oral Tablet Delayed Release 20 MG 0 days, 0 refills - Lisinopril 10 MG Oral Tablet 0 days, 0 refills - Synthroid 50 MCG Tablet 0 days, 0 refills Past Medical/Surgical History Reported: LMP: 2011 and Last mammogram date: 04/27/2021. 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 : 2 and para 2. Sexual: Sexually active. Other: Colonoscopy fiberoptic was performed 2017 or March at [facility]. Screening mammogram was performed 04/27/2021. A DXA of the lateral lumbar spine was performed 01/19/2018 wnl Diagnoses: Hyperlipidemia. Hypothyroidism Surgical: - Hysterectomy 2011 Social History Tobacco use: Tobacco non-user and non-smoker. Alcohol: Not using alcohol. Drug Use: Not using drugs. Allergies - Penicillins Family History Systemic hypertension father Paternal: Systemic hypertension father Maternal: Diabetes mellitus mom, mgm Review Of Systems Gastrointestinal: No pelvic pain. Genitourinary: No postmenopausal bleeding. No vaginal discharge. Physical Findings - Vitals taken 05/27/2022 03:14 pm BP-Sitting L 124/86 mmHg BP Cuff Size Regular Temp-Temporal 98 F Height 64 in Weight 202 lbs Body Mass Index 34.7 kg/m2 Body Surface Area 2 m2 Standard Measurements: - Patient was observed to be obese. General Appearance: - Well developed. - Well nourished. - In no acute distress. Neck: Thyroid: - Showed no abnormalities. Lymph Nodes: - Supraclavicular lymph nodes were not enlarged. - Axillary lymph nodes were not enlarged. Breasts: Right Breast: - Nipple was normal. - [...] Pelvic: - No ovarian mass. Vagina: - A vaginal discharge was observed thick, white. - Not tender. - No cystocele was observed. - No rectocele was observed. Cervix: - Absent. Uterus: - Absent. Uterine Adnexae: - Uterine adnexa was not tender. Rectovaginal: - Tissue was normal Deferred - recent colonoscopy. Psychiatric: Appearance: - Grooming was normal. Tests Microbiology: Culture: A BD Affirm was performed. Assessment - NORMAL FEMALE EXAM [Z01.419 - Encounter for gynecological examination (general) (routine) without abnormal findings] Previous Tests Past Medical: Tests: Patient recently had a dexa scan 01/19/18. Therapy - Low fat diet. Counseling/Education - Instructions for patient: Breast Self Exam discussed - Lose weight - Patient Education: Daily calcium and vitamin [...] EndCited StartCited - Other Follow-up 1 year/prn *KATIUSKA please get most recent colonoscopy report from [facility]. Thank you! Billing Please remove fit charge - not done today! EndCited - Follow-up visit 1 year or as needed - Clinical summary provided to patient Practice Management Preventive medicine established patient checkup adult 40-64 years; Use of tobacco assessment performed Review of medications documented. Health Reminders - Assess BMI satisfied 05/27/2022. - Assess Tobacco Use satisfied 05/27/2022. - Colorectal Cancer Screening satisfied 05/27/2022. - Mammogram satisfied 05/27/2022.
--- OUTSIDE RECORDS SUMMARY | 2024-03-25 22:55 | XMS_ITS | Clinical Summary ---
Author Organization [facility] Address [address] [place] [address] Phone Care Team Providers Care Bolter Helper Name Role Phone ISMAEL CABRERA DO Primary Care Provider [phone] PARVIZ HAYES MD Unavailable [phone] Reason for Visit and Chief Complaint The Chief Complaint is: Referred y Dr. Pedro for thoracic Problems Includes: Problems addressed during this encounter and other active Problems All Visits Onset Date Resolved Date Provider Condition S tatus Hypertension Systemic 06/19/2023 ROBINSON GRIFFIN WHNP-BC Active Last Documented On 4 9:34AM ; [facility] Gynecologic Services Thermal Endometrial Ablation 01/15/2018 ROBINSON GRIFFIN WHNP-BC Active Last Documented On 8 10:00AM ; [facility] Hypothyroidism 01/15/2018 ROBINSON GRIFFIN WHNP-BC Active Last Documented On 8 10:00AM ; [facility] Postsurgical State 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/15/2018 ROBINSON AMADO WHNP-BC Active Last Documented On 8 9:55AM ; [facility] Plan of Treatment Pending Tests Order Diagnosis Results Due Ordering P rovider Therapy - Physical Therapy Physical Therapy Pain in thoracic spine 08/11/23 JUSTINE COHN CLAM SHUCKER-FPA, COMMERCIAL LOAN OFFICER-BC Last Documented On 4 3:38PM ; [facility] Education and Decision Aids were provided during visit for: Lifestyle education Last Documented On 4 3:36PM ; [facility] Assessments Includes: Assessments from this encounter Findings - [M54.6 - Pain in thoracic spine] Pain in thoracic spine - Last Documented On 08/11/2023 3:36PM ; [facility] - [M40.204 - Unspecified kyphosis, thoracic region] Kyphosis - Last Documented On 08/11/2023 3:36PM ; [facility] - [M79.10 - Myalgia, unspecified site] Myalgia - Last Documented On 08/11/2023 3:36PM ; [facility] - [G89.4 - Chronic pain syndrome] Chronic pain syndrome - Last Documented On 08/11/2023 3:36PM ; [facility] Instructions Includes: Instructions from this encounter Education and Decision Aids were provided during visit for: Lifestyle education Last Documented On 3:36PM ; [facility] Medical Equipment - Implanted Devices Includes: Current Devices No Medical Equipment Recorded Medications Includes: Medications discussed during this encounter and other current Medications New / Renewed during this visit ELENA JIN on 08/11/2023 Methocarbamol 500 MG Oral Tablet Provider: ELENA JIN 30 day supply: 90 tablet, 1 refills Diagnosis: Myalgia, unspecified site One tablet three times a day as needed for muscle spasm/stiffness Pharmacy: [address], [address] - Last Documented On 4 3:16PM By JUSTINE PARKER ; [facility] Current Medications (continue as prescribed) Levothyroxine Sodium 125 MCG Oral Tablet 03/24/2023 Provider: Diagnosis: Last Documented On 4 3:16PM By JUSTINE PARKER ; [facility] Lisinopril 10 MG Oral Tablet 05/11/2020 Provider: Diagnosis: Last Documented On 4 3:16PM By JUSTINE PARKER ; [facility] Synthroid 50 MCG Tablet 12/19/2015 Provider: Diagnosis: Last Documented On 4 3:16PM By JUSTINE PARKER ; [facility] Medications Administered Includes: Administered Medications from this encounter No Administered Medications Recorded Vital Signs Includes: Vital Signs from this encounter Vital Name 08/11/2023 02:45P Blood Pressure Sitting R 118/68 BP Cuff Size Regular Pulse Rate-Sitting (bpm) 90 Temp-Rectal (F) 96.4 Height (in) 62.5 Weight (lb) 156 Body Mass Index 28.1 Body Surface Area 1.7 Pain Level 4 Oxygen Saturation (%) 98 Last Documented: On 08/11/2023 2:46PM ; [facility] Results Includes: Results discussed during this encounter No Results Recorded For Specified Dates History of Present Illness Includes: History of Present Illness from this encounter HPI PHQ-9 Score: 0 Date:08/11/2023PI Score: Date:Oswestry Score: 16% Date:08/11/2023SOAPP-R Score: 1 LOW Date:08/11/2023ain Location: ThoracicQuality: Feels like someone is snapping her back in half. Radiation: Severity: Timing: ConstantAssociated Sx: Weakness Aggravating Factors:lifting anything with arms, [...] went to pain management one time at [facility] but they don't take her insurance so [...] osteoarthritis. Mild right acromion clavicular joint osteoarthritis. Social History Description Last Updated No consumption of alcohol 08/11/2023 Last Documented On 4 3:36PM ; [facility] Not using drugs 08/11/2023 Last Documented On 4 2:24PM ; [facility] Not using drugs 08/11/2023 Last Documented On 4 3:36PM ; [facility] Not using alcohol 05/27/2022 Last Documented On 4 2:24PM ; [facility] Tobacco non-user 05/27/2022 Last Documented On 4 2:24PM ; [facility] Smoking Status Unknown Procedures and Surgical History Includes: Procedures from this encounter Procedures Code Diagnosis Performing Provider Service Location Service Date INJECTION(S) SINGLE OR MUTL TRIGGER PNT(S) 1 OR 2 MUSCLES Myalgia, unspecified site JUSTINE COHN CLAM SHUCKER-FPA, COMMERCIAL LOAN OFFICER-BC [facility] 08/11/2023 Last Documented On 4 10:41AM ; [facility] XYLOCAIN 1% INJECTION HCL PER 10MG J2001 Myalgia, unspecified site JUSTINE COHN CLAM SHUCKER-FPA, [facility] 08/11/2023 Last Documented On 4 9:46AM ; [facility] KENALOG INJECTION (KENALOG 10MG) J3301 Myalgia, unspecified site JUSTINE COHN CLAM SHUCKER-FPA, [facility] 08/11/2023 Last Documented On 4 10:41AM ; [facility] administered injection of tr igger point(s), one or two muscle group(s) : Informed consent-The procedure was described in detail [...] has signed a procedure specific consent form. ~ ~~DESCRIPTION OF PROCEDURE: The patient assumed a seated [...] patient appeared to tolerate the procedure well. ~~DISPOSITION: The patient is discharged home in good condition after a 10-minute period of observation with stable vital signs. Patient tolerated well. NO complications noted. ~ ~ Last Documented On 4 3:18PM ; [facility] plan of care reviewed and agreed to Last Documented On 4 3:36PM ; [facility] plan of care reviewed and agreed to by t he patient Last Documented On 4 3:36PM ; [facility] use of tobacco assessment performed 1000F Last Documented On 4 2:24PM ; [facility] review of medications documented 1160F Last Documented On 4 2:24PM ; [facility] screening for adult depression: impressi on and score 0 Last Documented On 4 2:40PM ; [facility] encouragement to exercise Last Documented On 4 3:36PM ; [facility] Reviewed & agreed to staff entries. Last Documented On 4 2:24PM ; [facility] Clinical summary provided to patient Last Documented On 4 2:24PM ; [facility] SOAPP-R: total score 1 Last Documented On 4 2:25PM ; [facility] Surgical History Last Updated No Pacemaker 08/11/2023 Last Documented On 4 3:36PM ; [facility] History of hysterectomy 201105/17/2021 Last Documented On 4 2:24PM ; [facility] Surgical / procedural histor y gal bladder removed, ~surgery both arms ~surgery both legs ~Right knee ~Left foot ~Endometrial ablation ~Lithotripsy ~Breast Implants (silicone) ~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 ~Bladder sling after hyst ~bunion removed from left foot 05/17/2021 Last Documented On 4 2:24PM ; [facility] Medical History Includes: Medical History addressed during this encounter Description Last Updated Denies a fear of falling. 08/11/2023 Last Documented On 4 3:36PM ; [facility] Has had no fall in the last 12 months. 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 Last Documented On 4 3:36PM ; [facility] Deep muscle stimulation 08/11/2023 Last Documented On 4 3:36PM ; [facility] Injection/Nerve blocks 08/11/2023 Last Documented On 4 3:36PM ; [facility] Message/Acupressure 08/11/2023 Last Documented On 4 3:36PM ; [facility] No Pain Pump 08/11/2023 Last Documented On 4 3:36PM ; [facility] No Spinal cord stimulator 08/11/2023 Last Documented On 4 3:36PM ; [facility] Physical therapy 08/11/2023 Last Documented On 4 3:36PM ; [facility] Not sexually active 06/19/2023 Last Documented On 4 2:24PM ; [facility] History of diaignostic fiberoptic colono scopy 01/18/2022 06/19/2023 Last Documented On 4 2:24PM ; [facility] History of screening mammogram was perfo rmed 05/28/2022 06/19/2023 Last Documented On 4 2:24PM ; [facility] 2 05/17/2021 Last Documented On 4 2:24PM ; [facility] History of a DXA of the lateral lumbar s pine was performed 01/19/2018 wnl 05/17/2021 Last Documented On 4 2:24PM ; [facility] History of hyperlipidemia 05/17/2021 Last Documented On 4 2:24PM ; [facility] History of hypothyroidism 05/17/2021 Last Documented On 4 2:24PM ; [facility] LMP: 201105/17/2021 Last Documented On 4 2:24PM ; [facility] Para 2 05/17/2021 Last Documented On 4 2:24PM ; [facility] Family History Includes: Family History addressed during this encounter Description Last Updated Maternal history of diabetes mellitus mo m, mgm 02/18/2019 Last Documented On 4 2:24PM ; [facility] Paternal history of hypertension father 02/18/2019 Last Documented On 4 2:24PM ; [facility] Review of Systems Includes: Review of Systems from this encounter Systemic: No systemic symptoms other then noted [...] Skin: No skin symptoms other than noted. Mental Status Includes: Mental Status from this encounter No Mental Status Recorded Functional Status Includes: Functional Status from this encounter No Functional Status Recorded Physical Exam Includes: Physical Exam from this encounter Allergies Includes: Active Allergies Substance Type Reaction Onset Date Resolved Date Statu s Penicillins Allergy 12/19/2015 Active Last Documented On 4 9:37AM ; [facility] Encounters Encounter Provider Location Date Check-In Time Check-Out Time Diagnosis PAIN MANAGEMENT NEW CONSULT JUSTINE COHN APRN-MANJINDER, JANICE-GRISEL [facility] 08/11/19 24 2:19PM 3:35PM Chronic Pain Syndrome,Kyph osis,Dorsopat hy Dorsalgia Pain in Thoracic Spine,Myalgia and Myositis Myalgia Insurance Includes: Active Insurance Policies Plan Name Member ID Group # Subscriber Relationship Effect sandy Dates 1 - [employer]AN [id number] YAMILET MARINO Self Clinical Notes Includes: Clinical Notes from this encounter * Progress note Date Encounter Last Documented by 08/11/2023 PAIN MANAGEMENT NEW CONSULT Last documented on 08/11/2023; 3:36 PM, JUSTINE COHN APRN-MANJINDER, COMMERCIAL LOAN OFFICER-GRISEL; [facility] Active Problems & Conditions - [...] ibuprofen. 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 Medical: [...] Affect normal. No pain behaviors. Skin: Normal. Luck, warm, dry. Tests Educational Testing: Questionnaires PHQ-9: [...] muscle pain and weakness. Establish HEP. in [place] if someone takes her insurance there EndCited Practice Management Use of tobacco assessment performed Review of medications documented; Screening for adult depression: impression and score 0; [78105] Established outpatient, medically appropriate H&P, moderate level [...] but may be subject to typographical or finish cleaner errors. Verify all diagnoses, medications, dosages, and [...]
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
== END 2024-03-24 09:55 | disposition home or self-care (01) ==
LOC: ANHBWCLAB 09:58
PROVIDERS: PCP Nurse Practitioner Adult Health; Visit Provider Nurse Practitioner Adult Health
DX: R79.89 Other specified abnormal findings of blood chemistry (principal); Z86.79 Personal history of other diseases of the circulatory system; Z83.49 Family history of other endocrine, nutritional and metabolic diseases
CPT/HCPCS: 36415; 80053; 80061; 81291; 82306; 84443

== ENCOUNTER 2024-04-15 00:25 | Day surgery (SDC) | payer OTHER, SELFPAY ==
[2024-03-31 11:49] VITALS: BMI 27.8
--- OUTSIDE RECORDS SUMMARY | 2024-04-15 00:31 | XMS_ITS | Clinical Summary ---
Author Organization [facility] Address [address] [place] [address] Phone Care Team Providers Care Contact Lens Manufacturer Name Role Phone Provider, None Primary Care [...] Overview (06/19/2017): Caden Childress MD; ; Polyps [facility] GI; ; polyps; repeat 5 years MMT [...] declined 09/08/2023 How often do you attend temple or druze serv ices? Patient declined 09/08/2023 Do you belong to any clubs o r organizations such as temple groups, unions, fraternal or athletic groups, or [...] medical care, and heating? Patient declined 09/08/2023 [facility] - Occupational Stress [...] any time in the past 12 m [facility], were you homeless or living in a fci (including now)? 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 Filed Vital Signs Vital Sign Reading Time Taken Comments Blood Pressure 109/62 09/10/2023 5:27 AM CDT Pulse 67 09/09/2023 2:00 PM CDT Temperature 36.6 C (97.9 F) 09/10/2023 5:27 AM CDT Respiratory Rate 17 09/10/2023 5:27 AM CDT [...] Immunization (1 of 2) 2010 Mammogram 01/02/2018 07/12/2023, 05/02, 04/27/2021, Additional history exists Influenza Immunization (#1) 11/02/202312/01, 11/25/2018, 12/19/2017, Additional history exists SARS-COV-2 Immunization ( season) 2023 Colonoscopy 01/18/2025 01/18/2022, 06/01, 01/28/2015, Additional history exists Colorectal Cancer Screening 01/18/2025 Respiratory Syncytial Virus (RSV) Immunization (Adult) (1 - 1-dose 75+ series) 12/24/2035 01/18/2022, 06/01, 01/28/2015, Additional history exists Cervical Cancer Screening (CCS) Discontinued Pap Smear Discontinued 05/24/2011 (Shruti angel non-Focusing Machine Operator), 02/02/2008 Hepatitis C Virus (HCV) Screening Completed [...] PANEL ACUTE (AHP) Routine 01/09/2018 10:35 AM SCHOOL BUS ATTENDANT Elevated liver enzymes Hepatic steatosis NOLAN SCREENING BEULAH W IMPL DIGITAL W CAD Routine 01/03/2016 3:08 PM CDT Screening breast examination HM COLONOSCOPY Routine 01/28/2015 5:21 AM SCHOOL BUS ATTENDANT [id number] Routine 02/02/2008 11: 50 PM SCHOOL BUS ATTENDANT from Last 3 Months or Most Recently Relevant to Health Maintenance Results * HEPATITIS PANEL ACUTE (AHP) (01/09/2018 10:35 AM SCHOOL BUS ATTENDANT) HEPATITIS A IGM ANTIBODY NON DETECTED NON DETECTED 01/09/2018 10:34 PM SCHOOL BUS ATTENDANT [facility] Comment: IGM Antibodies to HAV not detected. Does not exclude early acute or recovered HAV infection. HEP B CORE AB (IGM) NON DETECTED NON DETECTED 01/09/2018 10:34 PM SCHOOL BUS ATTENDANT [facility] Comment: IGM anti-HBC not detected. Does not exclude the possibility of exposure to or infection with HBV. HEPATITIS B SURFACE ANTIGEN NON DETECTED NON DETECTED 01/09/2018 10:34 PM SCHOOL BUS ATTENDANT [facility] Comment: A nonreactive test result does not [...] antibody 0.17 <1 S/CO 01/09/2018 10:34 PM SCHOOL BUS ATTENDANT [facility] Comment: Signal/Cutoff ratio < 0.79 is Nondetected Signal/Cutoff ratio 0.80-0.99 is Grayzone Signal/Cutoff ratio > 0.99 is Detected Supplemental assays are recommended if signal/cutoff ratio is >/=1.00. Signal/cutoff ratio result >/= 5.00 is 97% predictive of positivity for recombinant immunoblot assay (RIBA) and will be reported to the [place] Department of Public Health as required. Blood specimen (specimen) Venipuncture / Unknown 01/09/2018 10:35 AM SCHOOL BUS ATTENDANT 01/09/2018 12:18 PM SCHOOL BUS ATTENDANT us Alma Brito ELECTRONICS MECHANIC, ICER MACHINE OPERATOR HEMATOLOGY ORDERA BLES Final Result [facility] [address] [place] [address], [place] * NOLAN SCREENING BEULAH W IMPL DIGITAL W CAD (01/03/2016 3:08 PM CDT) Anatomical Region Laterality Modality breast Bilateral Mammography 01/03/2016 2:45 PM CDT Narrative 01/11/2016 4:48 PM SCHOOL BUS ATTENDANT - NOLAN SCREENING BEULAH W IMPL DIGITAL [...] made to exams dated: 12/05/2014 and 11/04/2013 [facility]. BREAST TISSUE: The tissue of both [...] signed by: Lachelle Mccormack M.D. pw/:01/11/2016 11:10:22 Electrical Instrument Maker: Vira Valdez(Julius), [facility] letter sent: Normal Exam Reading location: [facility] BI-RADS: 1 Negative Procedure Note Lachelle Mccormack MD - 01/11/2016 - [facility] SCREENING BEULAH W IMPL DIGITAL W CAD [...] made to exams dated: 12/05/2014 and 11/04/2013 [facility]. BREAST TISSUE: The tissue of both [...] signed by: Lachelle Mccormack M.D. pw/:01/11/2016 11:10:22 Electrical Instrument Maker: Vira Valdez(Julius), [facility] letter sent: Normal Exam Reading location: [facility] BI-RADS: 1 Negative us Flori Alfred PAC IMG MAMMO ORDERAB LES Final Result * HM COLONOSCOPY (10/24/2011) Narrative Arturo Russell M - 10/24/2011 HIMS created in error us Not On File Provider PROCEDURE/MINOR SURGICAL OR DERABLES Final Result * [id number] (02/02/2008 11:50 PM SCHOOL BUS ATTENDANT) 02/02/2008 11:5 0 PM SCHOOL BUS ATTENDANT 02/03/2008 11:50 PM SCHOOL BUS ATTENDANT Narrative [facility] - 02/09/2008 2:17 PM SCHOOL BUS ATTENDANT CYTOPATHOLOGY REPORT: Patient Name: YAMILET CULLEN Gender: F Location: [facility] ([facility]) Case #: [id number] Collect Date: 02/02/2008 Received: 02/03/2008 Reported: 02/09/2008 Final Cytologic Diagnosis: Vaginal/Cervical/Endocervical, liquid based thin layer preparation (Thin Prepe): Satisfactory for evaluation. Endocervical/transformation zone cellular component noted. NEGATIVE FOR INTRAEPITHELIAL LESIONS OR MALIGNANCY No dysplastic squamous cells identified. Analysis of this sample has been assisted by an automated imaging and review system ([employer] System, [employer], [place], [place]). The case is further evaluated and finalized by a glost placer and/or pathologist. Electronically Signed Out By [id number] The PAP smear is a preliminary screening procedure designed to detect the presence of cancerous or precancerous cells of the cervix. It is the best means available for early detection of cervical cancer, but it is not perfect. False negative results will sometimes be reported. To reduce the possibility of a false negative result, an annual PAP smear is recommended. Moreover, any suspicious signs of possible symptoms of cancer should be followed up. us Gaudencio Stein MD PATHOLOGY/CYTOLOGY ORDERABLES [facility] Result [facility] [address] [place] [address] from Last 3 Months or Most Recently [...] 10:13 AM 03/26/2012 11:31 AM Care Teams Contact Lens Manufacturer Relationship Specialty Start Date End Date Provider, None [place] PCP - General 09/08/23
--- OUTSIDE RECORDS SUMMARY | 2024-04-15 00:31 | XMS_ITS ---
Author Organization [facility] Address [address] [place] [address] Phone Care Team Providers Care Threat Monitoring Analyst Name Role Phone ISMAEL KUMAR DO Primary Care Provider [phone] FREDDY ROSALES, PARVIZ Otto Unavailable [phone] Problems Includes: Active, inactive, and resolved Problems All Visits Onset Date Resolved Date Provider Condition S tatus Hypertension Systemic 06/19/2023 ROBINSON GRIFFIN WHNP-BC Active Last Documented On 4 9:34AM ; [facility] Gynecologic Services Thermal Endometrial Ablation 01/15/2018 ROBINSON GRIFFIN WHNP-BC Active Last Documented On 8 10:00AM ; [facility] Hypothyroidism 01/15/2018 ROBINSONZENOBIA GRIFFIN WHNP-BC Active Last Documented On 8 10:00AM ; [facility] Postsurgical State 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/15/2018 ROBINSONZENOBIA AMADO WHNP-BC Active Last Documented On 8 9:55AM ; [facility] Plan of Treatment Findings Encounter Date Ordered Clinical summary pro vided to patient WELL WOMAN - ESTABLISHED PT with ROBINSON GRIFFIN WHNP-BC 06/19/2023 Last Documented On 4 9:44AM ; [facility] Ordered follow-up visit 1 ye ar or as needed WELL WOMAN - ESTABLISHED PT with ROBINSONZENOBIA GRIFFIN WHNP-BC 06/19/2023 Last Documented On 4 9:44AM ; [facility] Ordered Clinical summary pro vided to patient WELL WOMAN - ESTABLISHED PT with ROBINSON GRIFFIN WHNP-BC 05/27/2022 Last Documented On 3 3:27PM ; [facility] Ordered follow-up visit 1 ye ar or as needed WELL WOMAN - ESTABLISHED PT with ROBINSON GRIFFIN WHNP-BC 05/27/2022 Last Documented On 3 3:27PM ; [facility] Ordered Clinical summary pro vided to patient WELL WOMAN - ESTABLISHED PT with ROBINSON GRIFFIN WHNP-BC 05/17/2021 Last Documented On 2 1:48PM ; [facility] Ordered follow-up visit 1 ye ar or as needed WELL WOMAN - ESTABLISHED PT with ROBINSON GRIFFIN WHNP-BC 05/17/2021 Last Documented On 2 1:48PM ; [facility] Ordered Clinical summary pro vided to patient WELL WOMAN - ESTABLISHED PT with ROBINSON GRIFFIN WHNP-BC 05/11/2020 Last Documented On 1 3:09PM ; [facility] Ordered follow-up visit 1 ye ar or as needed WELL WOMAN - ESTABLISHED PT with ROBINSNO GRIFFIN WHNP-BC 05/11/2020 Last Documented On 1 3:09PM ; [facility] Ordered Clinical summary pro vided to patient ANNUAL FARM 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 EXAM with ROBINSON GRIFFIN WHNP-BC 02/18/2019 Last Documented On 9 10:48AM ; [facility] Ordered follow-up visit 1 ye ar or as needed ANNUAL FARM 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 MECHANIC EXAM with ROBINSON GRIFFIN WHNP-BC 02/18/2019 Last Documented On 9 10:48AM ; [facility] Ordered Clinical summary pro vided to patient ANNUAL FARM 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 MECHANIC EXAM with ROBINSON GRIFFIN WHNP-BC 01/15/2018 Last Documented On 8 10:07AM ; [facility] Ordered follow-up visit 1 ye ar or as needed ANNUAL FARM 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 MECHANIC EXAM with ROBINSON GRIFFIN WHNP-BC 01/15/2018 Last Documented On 8 10:07AM ; [facility] Pending Tests Order Diagnosis Results Due Ordering [facility] @ other - *MAMMOGRAPHY SCREENING MAMMOGRAM Encntr screen mammogram for malignant neoplasm of breast 07/03/23 ROBINSON GRIFFIN WHNP-BC Last Documented On 4 9:47AM ; [facility] Therapy - Physical Therapy Physical Therapy Pain in thoracic spine 08/11/23 JUSTINE COHN SHODDY MILL WORKER-FPA, PAYROLL SECRETARY-BC Last Documented On 4 3:38PM ; [facility] Instructions to patient Instructions for patient : B reast Self Exam discussed Last Documented On 4 9:31AM ; [facility] Instructions for patient : B reast Self Exam discussed Last Documented On 3 3:06PM ; [facility] Lose weight Last Documented On 3 3:07PM ; [facility] Instructions for patient : B reast Self Exam discussed Last Documented On 2 1:40PM ; [facility] Lose weight Last Documented On 2 1:41PM ; [facility] Safe sex counseling Last Documented On 2 1:48PM ; [facility] Instructions for patient : B reast Self Exam discussed Last Documented On 1 2:48PM ; [facility] Lose weight Last Documented On 1 2:50PM ; [facility] Instructions for patient : B reast Self Exam discussed Last Documented On 9 10:27AM ; [facility] Lose weight Last Documented On 9 10:28AM ; [facility] Instructions for patient : B reast Self Exam discussed Last Documented On 8 9:54AM ; [facility] Lose weight Last Documented On 8 9:56AM ; [facility] Colonoscopy Handout given to patient Last Documented On 8 9:56AM ; [facility] Instructions for patient : B reast Self Exam discussed Last Documented On 7 10:00AM ; [facility] Instructions for patient : B reast Self Exam discussed Last Documented On 6 2:10PM ; [facility] Education and Decision Aids were provided during visit for: Lifestyle education Last Documented On 4 3:36PM ; [facility] Patient Education: Daily juaquin cium and vitamin D Last Documented On 4 9:31AM ; [facility] Patient Education: weight be aring exercise Last Documented On 4 9:31AM ; [facility] Patient Education: Daily juaquin cium and vitamin D Last Documented On 3 3:06PM ; [facility] Patient Education: weight be aring exercise Last Documented On 3 3:06PM ; [facility] Patient Education: Daily juaquin cium and vitamin D Last Documented On 2 1:40PM ; [facility] Patient Education: weight be aring exercise Last Documented On 2 1:40PM ; [facility] Patient Education: Daily juaquin cium and vitamin D Last Documented On 1 2:48PM ; [facility] Patient Education: weight be aring exercise Last Documented On 1 2:48PM ; [facility] Patient Education: Daily juaquin cium and vitamin D Last Documented On 9 10:27AM ; [facility] Patient Education: weight be aring exercise Last Documented On 9 10:27AM ; [facility] Patient Education: Daily juaquin cium and vitamin D Last Documented On 8 9:54AM ; [facility] Patient Education: weight be aring exercise Last Documented On 8 9:54AM ; [facility] STD screening offered and de clined Last Documented On 7 10:00AM ; [facility] Bone Mineral Density Screeni ng guidelines reviewed Last Documented On 7 10:00AM ; [facility] Patient Education: Daily juaquin cium and vitamin D Last Documented On 7 10:00AM ; [facility] Patient Education: weight be aring exercise Last Documented On 7 10:00AM ; [facility] Colonoscopy screening guidel romelia discussed Last Documented On 7 10:00AM ; [facility] STD screening offered and de clined Last Documented On 6 2:10PM ; [facility] Bone Mineral Density Screeni ng guidelines reviewed Last Documented On 6 2:10PM ; [facility] Patient Education: Daily juaquin cium and vitamin D Last Documented On 6 2:10PM ; [facility] Patient Education: weight be aring exercise Last Documented On 6 2:10PM ; [facility] Colonoscopy screening guidel romelia discussed Last Documented On 6 2:10PM ; [facility] Assessments Includes: Assessments for all patient encounters Findings Encounter Date Chronic pain syndrome PAIN MANAGEMENT NE W CONSULT with JUSTINE Mauro SUKI SHODDY MILL WORKER-FPA, PAYROLL SECRETARY-BC 08/11/2023 Last Documented On 4 3:36PM ; [facility] Kyphosis PAIN MANAGEMENT NEW CONSULT with JUSTINE Zunilda SUKI SHODDY MILL WORKER-FPA, PAYROLL SECRETARY-BC 08/11/2023 Last Documented On 4 3:36PM ; [facility] Myalgia PAIN MANAGEMENT NEW CONSULT with JUSTINE Zunilda SUKI SHODDY MILL WORKER-FPA, PAYROLL SECRETARY-BC 08/11/2023 Last Documented On 4 3:36PM ; [facility] Pain in thoracic spine PAIN MANAGEMENT N EW CONSULT with JUSTINE Zunilda SUKI SHODDY MILL WORKER-FPA, PAYROLL SECRETARY-BC 08/11/2023 Last Documented On 4 3:36PM ; [facility] NORMAL FEMALE EXAM WELL WOMAN - ESTABLISHED PT w ith ROBINSON GRIFFIN WHNP-BC 06/19/2023 Last Documented On 4 9:44AM ; [facility] Screening Malig. Neoplasm Rectum WELL WO MAN - ESTABLISHED PT with ROBINSON GRIFFIN WHNP-BC 06/19/2023 Last Documented On 4 9:44AM ; [facility] NORMAL FEMALE EXAM WELL WOMAN - ESTABLISHED PT w jimmy GRIFFIN WHNP-BC 05/27/2022 Last Documented On 3 3:27PM ; [facility] NORMAL FEMALE EXAM WELL WOMAN - ESTABLISHED PT w jimmy GRIFFIN WHNP-BC 05/17/2021 Last Documented On 2 1:48PM ; [facility] Screening Malig. Neoplasm Rectum WELL WO MAN - ESTABLISHED PT with ROBINSON GRIFFIN WHNP-BC 05/17/2021 Last Documented On 2 1:48PM ; [facility] NORMAL FEMALE EXAM WELL WOMAN - ESTABLISHED PT w ith ROBINSON GRIFFIN WHNP-BC 05/11/2020 Last Documented On 1 3:09PM ; [facility] Screening Malig. 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 Neoplasm Rectum ANNUAL FARM 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 MECHANIC EXAM with ROBINSON GRIFFIN NP-BC 02/18/2019 Last Documented On 9 10:48AM ; [facility] NORMAL FEMALE EXAM ANNUAL FARM 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 MECHANIC EXAM with ROBINSON GRIFFIN NP-BC 01/15/2018 Last Documented On 8 10:07AM ; [facility] Screening Malig. Neoplasm Rectum ANNUAL FARM 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 MECHANIC EXAM with ROBINSON GRIFFIN NP-BC 01/15/2018 Last Documented On 8 10:07AM ; [facility] Routine pelvic exam ANNUAL FARM 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 MECHANIC EXAM with TOMASA ROBERT MD 12/31/2016 Last Documented On 7 10:16AM ; [facility] Screening Malig. Neoplasm Rectum ANNUAL FARM 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 MECHANIC EXAM with TOMASA ROBERT MD 12/31/2016 Last Documented On 7 10:16AM ; [facility] Routine pelvic exam NEW DRUPAL ARCHITECT EXAM with TOMASA LANDIS MD 12/19/2015 Last Documented On 6 8:58AM ; [facility] Screening Malig. Neoplasm Rectum NEW DRUPAL ARCHITECT EXAM wi TOMASA ROBERT MD 12/19/2015 Last Documented On 6 8:58AM ; [facility] Instructions Includes: Instructions for all patient encounters Instructions to patient Instructions for patient : B reast Self Exam discussed Last Documented On 4 9:31AM ; [facility] Instructions for patient : B reast Self Exam discussed Last Documented On 3 3:06PM ; [facility] Lose weight Last Documented On 3 3:07PM ; [facility] Instructions for patient : B reast Self Exam discussed Last Documented On 2 1:40PM ; [facility] Lose weight Last Documented On 2 1:41PM ; [facility] Safe sex counseling Last Documented On 2 1:48PM ; [facility] Instructions for patient : B reast Self Exam discussed Last Documented On 1 2:48PM ; [facility] Lose weight Last Documented On 1 2:50PM ; [facility] Instructions for patient : B reast Self Exam discussed Last Documented On 9 10:27AM ; [facility] Lose weight Last Documented On 9 10:28AM ; [facility] Instructions for patient : B reast Self Exam discussed Last Documented On 8 9:54AM ; [facility] Lose weight Last Documented On 8 9:56AM ; [facility] Colonoscopy Handout given to patient Last Documented On 8 9:56AM ; [facility] Instructions for patient : B reast Self Exam discussed Last Documented On 7 10:00AM ; [facility] Instructions for patient : B reast Self Exam discussed Last Documented On 6 2:10PM ; [facility] Education and Decision Aids were provided during visit for: Lifestyle education Last Documented On 4 3:36PM ; [facility] Patient Education: Daily juaquin cium and vitamin D Last Documented On 4 9:31AM ; [facility] Patient Education: weight be aring exercise Last Documented On 4 9:31AM ; [facility] Patient Education: Daily juaquin cium and vitamin D Last Documented On 3 3:06PM ; [facility] Patient Education: weight be aring exercise Last Documented On 3 3:06PM ; [facility] Patient Education: Daily juaquin cium and vitamin D Last Documented On 2 1:40PM ; [facility] Patient Education: weight be aring exercise Last Documented On 2 1:40PM ; [facility] Patient Education: Daily juaquin cium and vitamin D Last Documented On 1 2:48PM ; [facility] Patient Education: weight be aring exercise Last Documented On 1 2:48PM ; [facility] Patient Education: Daily juaquin cium and vitamin D Last Documented On 9 10:27AM ; [facility] Patient Education: weight be aring exercise Last Documented On 9 10:27AM ; [facility] Patient Education: Daily juaquin cium and vitamin D Last Documented On 8 9:54AM ; [facility] Patient Education: weight be aring exercise Last Documented On 8 9:54AM ; [facility] STD screening offered and de clined Last Documented On 7 10:00AM ; [facility] Bone Mineral Density Screeni ng guidelines reviewed Last Documented On 7 10:00AM ; [facility] Patient Education: Daily juaquin cium and vitamin D Last Documented On 7 10:00AM ; [facility] Patient Education: weight be aring exercise Last Documented On 7 10:00AM ; [facility] Colonoscopy screening guidel romelia discussed Last Documented On 7 10:00AM ; [facility] STD screening offered and de clined Last Documented On 6 2:10PM ; [facility] Bone Mineral Density Screeni ng guidelines reviewed Last Documented On 6 2:10PM ; [facility] Patient Education: Daily juaquin cium and vitamin D Last Documented On 6 2:10PM ; [facility] Patient Education: weight be aring exercise Last Documented On 6 2:10PM ; [facility] Colonoscopy screening guidel romelia discussed Last Documented On 6 2:10PM ; [facility] Medical Equipment - Implanted Devices Includes: Current and historical Devices No Medical Equipment Recorded Medications Includes: Current and historical Medications Current Medications (continue as prescribed) Methocarbamol 500 MG Oral Tablet 08/11/2023 Provider: JUSTINE COHN APRN-WESLYA, PAYROLL SECRETARY-BC Diagnosis: Myalgia, unspeci fied site One tablet three times a day as needed for muscle spasm/stiffness Last Documented On 4 3:16PM By JUSTINE CAMACHO-BC ; [facility] Levothyroxine Sodium 125 MCG Oral Tablet 03/24/2023 Provider: Diagnosis: Last Documented On 4 3:16PM By JUSTINE CAMACHO-BC ; [facility] Lisinopril 10 MG Oral Tablet 05/11/2020 Provider: Diagnosis: Last Documented On 4 3:16PM By JUST[facility]HN [facility] ; [facility] Synthroid 50 MCG Tablet 12/19/2015 Provider: Diagnosis: Last Documented On 4 3:16PM By JUSTINE COHN [facility] ; [facility] Past Medications on file metroNIDAZOLE 500 MG Oral Tablet 05/30/2022 - 06/19/2023 Provider: ROBINSON GARCIA Diagnosis: One tablet twice a day Last Documented On 06/19/2023 9:37AM By Kay BEEBE ; [facility] Omeprazole 20MG Oral Tablet Delayed Release 01/15/2018 - 06/19/2023 Provider: Diagnosis: Last Documented On 06/19/2023 9:35AM By Kay BEEBE ; [facility] Medications Administered Includes: Administered Medications in patient's chart No Administered Medications Recorded Vital Signs Includes: Vital Signs from 04/15/2023 through 04/15/2024 Vital Name 08/11/2023 02:45P 06/19/2023 09: 33A Blood Pressure Sitting R 118/68 BP Cuff Size Regular Pulse Rate-Sitting (bpm) 90 Temp-Rectal (F) 96.4 Height (in) 62.5 62.5 Weight (lb) 156 162 Body Mass Index 28.1 29.2 Body Surface Area 1.7 1.8 Pain Level 4 Oxygen Saturation (%) 98 Blood Pressure Sitting (mmHg) 10 0/80 Temp-Temporal 97.9 Last Documented: On 08/11/2023 2:46PM ; [facility] On 06/19/2023 9:33AM ; [facility] Results Includes: Results from 04/15/2023 through 04/15/2024 FOBT-FECAL OCCULT BLOOD TEST [facility] Or[facility]01 Collected: Reported: 06/19/2023 09:45 Last Documented On 9:45AM ; [facility] All test results are final unless otherw ise noted. OCCULT BLOOD: Negative (NEG.) N (Normal) Last Documented On 9:45AM ; [facility] INT. QC ACCEPTABLE? Yes N (Normal) Last Documented On 4 9:45AM ; [facility] LOT # & EXP. DATE [id number] 06/30/25 N (Normal) Last Documented On 4 9:45AM ; [facility] History of Present Illness History of Present Illness not supported for this document type No History of Present Illness Recorded Social History Description Last Updated No consumption of alcohol 08/11/2023 Last Documented On 4 3:36PM ; [facility] Not using drugs 08/11/2023 Last Documented On 4 3:36PM ; [facility] Not using alcohol 05/27/2022 Last Documented On 3 3:27PM ; [facility] Tobacco non-user 05/27/2022 Last Documented On 3 3:27PM ; [facility] Smoking Status Unknown Procedures and Surgical History Includes: Procedures from 04/15/2023 through 04/15/2024 Procedures Code Diagnosis Performing Provider Service Location Service Date KENALOG INJECTION (KENALOG 10MG) [id number] Myalgia, unspecified site JUSTINE COHN SHODDY MILL WORKER-FPA, PAYROLL SECRETARY-[facility] 08/11/2023 Last Documented On 4 10:41AM ; [facility] INJECTION(S) SINGLE OR MUTL TRIGGER PNT(S) 1 OR 2 MUSCLES 75245 Myalgia, unspecified site JUSTINE COHN SHODDY MILL WORKER-FPA, PAYROLL SECRETARY-[facility] 08/11/2023 Last Documented On 4 10:41AM ; [facility] FIT TEST-SCREENING FOR FECAL OCCULT BLOOD (CLIA WAIVED) 19147 Encounter for screening for malignant neoplasm of colon ROBINSON GRIFFIN 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 08/11/2023 Last Documented On 4 3:36PM ; [facility] Has had no fall in the last 12 months. 0 08/11/2023 Last Documented On 4 3:36PM ; [facility] healthcare risk control consultant 08/11/2023 Last Documented On 4 3:36PM ; [facility] Deep muscle stimulation 08/11/2023 Last Documented On 4 3:36PM ; [facility] Injection/Nerve blocks 08/11/2023 Last Documented On 4 3:36PM ; [facility] Message/Acupressure 08/11/2023 Last Documented On 4 3:36PM ; [facility] No Pain Pump 08/11/2023 Last Documented On 4 3:36PM ; [facility] No Spinal cord stimulator 08/11/2023 Last Documented On 4 3:36PM ; [facility] Physical therapy 08/11/2023 Last Documented On 4 3:36PM ; [facility] Not sexually active 06/19/2023 Last Documented On 4 9:44AM ; [facility] History of diaignostic fiberoptic colono scopy 01/18/2022 06/19/2023 Last Documented On 4 9:44AM ; [facility] History of screening mammogram was perfo rmed 05/28/2022 06/19/2023 Last Documented On 4 9:44AM ; [facility] 2 05/17/2021 Last Documented On 2 1:48PM ; [facility] History of a DXA of the lateral lumbar s pine was performed 01/19/2018 wnl 05/17/2021 Last Documented On 2 1:48PM ; [facility] History of hyperlipidemia 05/17/2021 Last Documented On 2 1:48PM ; [facility] History of hypothyroidism 05/17/2021 Last Documented On 2 1:48PM ; [facility] LMP: 2012 05/17/2021 Last Documented On 2 1:48PM ; [facility] Para 2 05/17/2021 Last Documented On 2 1:48PM ; [facility] Family History Includes: Family History in patient's chart Description Last Updated Maternal history of diabetes mellitus mo m, mgm 02/18/2019 Last Documented On 9 10:48AM ; [facility] Paternal history of hypertension father 02/18/2019 Last Documented On 9 10:48AM ; [facility] Review of Systems Review of Systems not [...] Active Last Documented On 4 9:37AM ; [facility] Encounters Includes: Encounters from 04/15/2023 through 04/15/2024 Encounter Provider Location Date Check-In Time Check-Out Time Diagnosis PAIN MANAGEMENT NEW CONSULT JUSTINE COHN SHODDY MILL WORKER-FPA, PAYROLL SECRETARY-[facility] 08/11/19 24 2:19PM 3:35PM Chronic Pain Syndrome,Kyph osis,Dorsopat hy Dorsalgia Pain in Thoracic Spine,Myalgia and Myositis Myalgia WELL WOMAN - ESTABLISHED PT ROBINSON GRIFFIN [facility] 06/19/19 24 9:30AM 9:45AM Screening Malig. Neoplasm Rectum,Normal Female Exam Insurance Includes: Active Insurance Policies Plan Name Member ID Group # Subscriber Relationship Effect sandy Dates 1 - [employer] MED PLAN [id number] YAMILET MARINO Self Clinical Notes Includes: Signed Clinical Notes starting from 03/22/2022 * Progress note Date Encounter Last Documented by 08/11/2023 PAIN MANAGEMENT NEW CONSULT Last documented on 08/11/2023; 3:36 PM, JUSTINE COHN APRN-FPA, PAYROLL SECRETARY-BC; [facility] Active Problems & Conditions - [...] went to pain management one time at [facility] but they don't take her [...] History Reported: Injection/Nerve blocks, Deep muscle stimulation, healthcare risk control consultant, Physical therapy, Message/Acupressure, and LMP: 2011. Medical: [...] Affect normal. No pain behaviors. Skin: Normal. [place], warm, dry. Tests Educational Testing: Questionnaires PHQ-9: [...] muscle pain and weakness. Establish HEP. in [place] if someone takes her insurance there EndCited Practice Management Use of tobacco assessment performed Review of medications documented; Screening for adult depression: impression and score 0; [20283] Established outpatient, medically appropriate H&P, moderate level [...] but may be subject to typographical or energy efficiency engineer errors. Verify all diagnoses, medications, dosages, and [...] documented on 06/19/2023; 9:44 AM, ROBINSON CARDENAS-; [facility] Active Problems & Conditions - [...]
--- OUTSIDE RECORDS SUMMARY | 2024-04-15 00:31 | XMS_ITS ---
Care Plan - [facility] Created on: April 15, 2024 YAMILET MARINO : 1960 Sex: Female Author Organization [facility] Address [address] [place] [address] Phone Care Team Providers Care Rat Trapper Name Role Phone ISMAEL CABRERA DO Primary Care Provider [phone] FREDDY ROSALES, PARVIZ C Unavailable [phone]
--- OUTSIDE RECORDS SUMMARY | 2024-04-15 00:32 | XMS_ITS | Clinical Summary ---
Author Organization [facility] Address [address] [place] [address] Phone Care Team Providers Care Personal Injury Legal Assistant Name Role Phone ISMAEL CABRERA DO Primary Care Provider [phone] PARVIZ HAYES MD Unavailable [phone] Reason for Visit and Chief Complaint The Chief Complaint is: Referred y Dr. Pedro for thoracic Problems Includes: Problems addressed during this encounter and other active Problems All Visits Onset Date Resolved Date Provider Condition S tatus Hypertension Systemic 06/19/2023 ROBINSON GRIFFIN [facility]NP-BC Active Last Documented On 4 9:34AM ; [facility] Gynecologic Services Thermal Endometrial Ablation 01/15/2018 ROBINSON GRIFFIN [facility]NP-BC Active Last Documented On 8 10:00AM ; [facility] Hypothyroidism 01/15/2018 ROBINSON GRIFFIN [facility]NP-BC Active Last Documented On 8 10:00AM ; [facility] Postsurgical State 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/15/2018 ROBINSON AMADO [facility]NP-BC Active Last Documented On 8 9:55AM ; [facility] Plan of Treatment Pending Tests Order Diagnosis Results Due Ordering P rovider Therapy - Physical Therapy Physical Therapy Pain in thoracic spine 08/11/23 JUSTINE COHN KNITTING MACHINE OPERATOR AUTOMATIC-FPA, DEPUTY SHERIFF/INVESTIGATOR-BC Last Documented On 4 3:38PM ; [facility] Education and Decision Aids were provided during visit for: Lifestyle education Last Documented On 4 3:36PM ; [facility] Assessments Includes: Assessments from this encounter Findings - [M54.6 - Pain in thoracic spine] Pain in thoracic spine - Last Documented On 08/11/2023 3:36PM ; [facility] - [M40.204 - Unspecified kyphosis, thoracic region] Kyphosis - Last Documented On 08/11/2023 3:36PM ; [facility] - [M79.10 - Myalgia, unspecified site] Myalgia - Last Documented On 08/11/2023 3:36PM ; [facility] - [G89.4 - Chronic pain syndrome] Chronic pain syndrome - Last Documented On 08/11/2023 3:36PM ; [facility] Instructions Includes: Instructions from this encounter Education and Decision Aids were provided during visit for: Lifestyle education Last Documented On 3:36PM ; [facility] Medical Equipment - Implanted [...] day as needed for muscle spasm/stiffness Pharmacy: [address], [address] - Last Documented On 4 3:16PM By JUSTINE PARKER ; [facility] Current Medications (continue as prescribed) Levothyroxine Sodium 125 MCG Oral Tablet 03/24/2023 Provider: Diagnosis: Last Documented On 4 3:16PM By JUSTINE PARKER ; [facility] Lisinopril 10 MG Oral Tablet 05/11/2020 Provider: Diagnosis: Last Documented On 4 3:16PM By JUSTINE PARKER ; [facility] Synthroid 50 MCG Tablet 12/19/2015 Provider: Diagnosis: Last Documented On 4 3:16PM By JUSTINE PARKER ; [facility] Medications Administered Includes: Administered [...] 98 Last Documented: On 08/11/2023 2:46PM ; [facility] Results Includes: Results discussed [...] went to pain management one time at [facility] but they don't take her insurance so [...] 08/11/2023 Last Documented On 4 3:36PM ; [facility] Not using drugs 08/11/2023 Last Documented On 4 2:24PM ; [facility] Not using drugs 08/11/2023 Last Documented On 4 3:36PM ; [facility] Not using alcohol 05/27/2022 Last Documented On 4 2:24PM ; [facility] Tobacco non-user 05/27/2022 Last Documented On 4 2:24PM ; [facility] Smoking Status Unknown Procedures and Surgical History Includes: Procedures from this encounter Procedures Code Diagnosis Performing Provider Service Location Service Date INJECTION(S) SINGLE OR MUTL TRIGGER PNT(S) 1 OR 2 MUSCLES Myalgia, unspecified site JUSTINE COHN KNITTING MACHINE OPERATOR AUTOMATIC-FPA, DEPUTY SHERIFF/INVESTIGATOR-BC [facility] 08/11/2023 Last Documented On 4 10:41AM ; [facility] XYLOCAIN 1% INJECTION HCL PER 10MG J2001 Myalgia, unspecified site JUSTINE COHN KNITTING MACHINE OPERATOR AUTOMATIC-FPA, [facility] 08/11/2023 Last Documented On 4 9:46AM ; [facility] KENALOG INJECTION (KENALOG 10MG) J3301 Myalgia, unspecified site JUSTINE COHN KNITTING MACHINE OPERATOR AUTOMATIC-FPA, [facility] 08/11/2023 Last Documented On 4 10:41AM ; [facility] administered injection of tr igger point(s), one [...] ~ Last Documented On 4 3:18PM ; [facility] plan of care reviewed and agreed to Last Documented On 4 3:36PM ; [facility] plan of care reviewed and agreed to by t he patient Last Documented On 4 3:36PM ; [facility] use of tobacco assessment performed 1000F Last Documented On 4 2:24PM ; [facility] review of medications documented 1160F Last Documented On 4 2:24PM ; [facility] screening for adult depression: impressi on and score 0 Last Documented On 4 2:40PM ; [facility] encouragement to exercise Last Documented On 4 3:36PM ; [facility] Reviewed & agreed to staff entries. 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 08/11/2023 Last Documented On 4 3:36PM ; [facility] Has had no fall in the last 12 months. 0 08/11/2023 Last Documented On 4 3:36PM ; [facility] healthcare translator 08/11/2023 Last Documented On 4 3:36PM ; [facility] Deep muscle stimulation 08/11/2023 Last Documented On 4 3:36PM ; [facility] Injection/Nerve blocks 08/11/2023 Last Documented On 4 3:36PM ; [facility] Message/Acupressure 08/11/2023 Last Documented On 4 3:36PM ; [facility] No Pain Pump 08/11/2023 Last Documented On 4 3:36PM ; [facility] No Spinal cord stimulator 08/11/2023 Last Documented On 4 3:36PM ; [facility] Physical therapy 08/11/2023 Last Documented On 4 3:36PM ; [facility] Not sexually active 06/19/2023 Last Documented On 4 2:24PM ; [facility] History of diaignostic fiberoptic colono scopy 01/18/2022 06/19/2023 Last Documented On 4 2:24PM ; [facility] History of screening mammogram was perfo rmed 05/28/2022 06/19/2023 Last Documented On 4 2:24PM ; [facility] 2 05/17/2021 Last Documented On 4 2:24PM ; [facility] History of a DXA of the lateral lumbar s pine was performed 01/19/2018 wnl 05/17/2021 Last Documented On 4 2:24PM ; [facility] History of hyperlipidemia 05/17/2021 Last Documented On 4 2:24PM ; [facility] History of hypothyroidism 05/17/2021 Last Documented On 4 2:24PM ; [facility] LMP: 201105/17/2021 Last Documented On 4 2:24PM ; [facility] Para 2 05/17/2021 Last Documented On 4 2:24PM ; [facility] Family History Includes: Family History addressed during this encounter Description Last Updated Maternal history of diabetes mellitus mo m, mgm 02/18/2019 Last Documented On 4 2:24PM ; [facility] Paternal history of hypertension father 02/18/2019 Last Documented On 4 2:24PM ; [facility] Review of Systems Includes: Review of Systems [...] Active Last Documented On 4 9:37AM ; [facility] Encounters Encounter Provider Location Date Check-In Time Check-Out Time Diagnosis PAIN MANAGEMENT NEW CONSULT JUSTINE COHN APRN-MANJINDER, JANICE-GRISEL [facility] 08/11/19 24 2:19PM 3:35PM Chronic Pain Syndrome,Kyph osis,Dorsopat hy Dorsalgia Pain in Thoracic Spine,Myalgia and Myositis Myalgia Insurance Includes: Active Insurance Policies Plan Name Member ID Group # Subscriber Relationship Effect sandy Dates 1 - [employer]AN [id number] YAMILET MARINO Self Clinical Notes Includes: Clinical Notes from this encounter * Progress note Date Encounter Last Documented by 08/11/2023 PAIN MANAGEMENT NEW CONSULT Last documented on 08/11/2023; 3:36 PM, JUSTINE COHN APRN-MANJINDER, DEPUTY SHERIFF/INVESTIGATOR-GRISEL; [facility] Active Problems & Conditions [...] went to pain management one time at [facility] but they don't take her insurance so [...] Reported: Injection/Nerve blocks, Deep muscle stimulation, healthcare translator, Physical therapy, Message/Acupressure, and LMP: 2011. Medical: [...] Affect normal. No pain behaviors. Skin: Normal. [place], warm, dry. Tests Educational Testing: Questionnaires PHQ-9: [...] muscle pain and weakness. Establish HEP. in [place] if someone takes her insurance there EndCited Practice Management Use of tobacco assessment performed Review of medications documented; Screening for adult depression: impression and score 0; [27575] Established outpatient, medically appropriate H&P, moderate level [...] but may be subject to typographical or leather grainer errors. Verify all diagnoses, medications, dosages, and [...]
--- OUTSIDE RECORDS SUMMARY | 2024-04-15 00:32 | XMS_ITS | Clinical Summary ---
Author Organization [facility] Address [address] [place] [address] Phone Care Team Providers Care Sailing Officer Name Role Phone ISMAEL KUMAR DO Primary Care Provider [phone] FREDDY ROSALES, PARVIZ Otto Unavailable [phone] Reason for Visit and Chief Complaint The Chief Complaint is: WWE. No issues or concerns Problems Includes: Problems addressed during this encounter and other active Problems Current Visit Onset Date Resolved Date Provider Conditio n Status Hypertension Systemic 06/19/2023 ROBINSON GRIFFIN WHNP-BC Active Last Documented On 4 9:34AM ; [facility] Past Visits Onset Date Resolved Date Provider Condition Status Gynecologic Services Thermal Endometrial Ablation 01/15/2018 ROBINSON GRIFFIN WHNP-BC Active Last Documented On 8 10:00AM ; [facility] Hypothyroidism 01/15/2018 ROBINSON GRIFFIN WHNP-BC Active Last Documented On 8 10:00AM ; [facility] Postsurgical State 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/15/2018 ROBINOSN AMADO WHNP-BC Active Last Documented On 8 9:55AM ; [facility] Plan of Treatment - Follow-up visit 1 year or as needed - Last Documented On 06/19/2023 9:44AM ; [facility] - Clinical summary provided to patient - Last Documented On 06/19/2023 9:44AM ; [facility] Pending Tests Order Diagnosis Results Due Ordering P ronadir Radiology @ other - *MAMMOGRAPHY SCREENING MAMMOGRAM Encntr screen mammogram for malignant neoplasm of breast 07/03/23 ROBINSON GRIFFIN WHNP-BC Last Documented On 4 9:47AM ; [facility] Instructions to patient Instructions for patient : B reast Self Exam discussed Last Documented On 4 9:31AM ; [facility] Education and Decision Aids were provided during visit for: Patient Education: Daily juaquin cium and vitamin D Last Documented On 4 9:31AM ; [facility] Patient Education: weight be aring exercise Last Documented On 4 9:31AM ; [facility] Assessments Includes: Assessments from this encounter Findings - NORMAL FEMALE EXAM [Z01.419 - Encounter for gynecological examination (general) (routine) without abnormal findings] - Last Documented On 06/19/2023 9:44AM ; [facility] - Screening Malig. Neoplasm Rectum [Z12.12 - Encounter for screening for malignant neoplasm of rectum] - Last Documented On 06/19/2023 9:44AM ; [facility] Instructions Includes: Instructions from this encounter Instructions to patient Instructions for patient : B reast Self Exam discussed Last Documented On 4 9:31AM ; [facility] Education and Decision Aids were provided during visit for: Patient Education: Daily juaquin cium and vitamin D Last Documented On 4 9:31AM ; [facility] Patient Education: weight be aring exercise Last Documented On 4 9:31AM ; [facility] Medical Equipment - Implanted Devices Includes: Current Devices No Medical Equipment Recorded Medications Includes: Medications discussed during this encounter and other current Medications Discontinued / Stopped on this date ROBINSON A GRIFFIN WHNP-BC on 05/30/2022 metroNIDAZOLE 500 MG Oral Tablet Provider : ROBINSON GRIFFIN WHNP-BC Diagnosis: Last Documented On 06/19/2023 9:37AM By Kay BEEBE ; [facility] Omeprazole 20MG Oral Tablet Delayed Release Provider: Diagnosis: Last Documented On 06/19/2023 9:35AM By Kay BEEBE ; [facility] Current Medications (continue as prescribed) Methocarbamol 500 MG Oral Tablet 08/11/2023 Provider: JUSTINE COHN CONSUMER ANALYST-FPA, JOSS HOUSE KEEPER-BC Diagnosis: Myalgia, unspeci fied site One tablet three times a day as needed for muscle spasm/stiffness Last Documented On 4 3:16PM By JUSTINE COHN [facility] ; [facility] Levothyroxine Sodium 125 MCG Oral Tablet 03/24/2023 Provider: Diagnosis: Last Documented On 4 3:16PM By JUSTINE COHN [facility] ; [facility] Lisinopril 10 MG Oral Tablet 05/11/2020 Provider: Diagnosis: Last Documented On 4 3:16PM By JUSTINE COHN [facility] ; [facility] Synthroid 50 MCG Tablet 12/19/2015 Provider: Diagnosis: Last Documented On 4 3:16PM By JUSTINE COHN [facility] ; [facility] Medications Administered Includes: Administered Medications from this encounter No Administered Medications Recorded Vital Signs Includes: Vital Signs from this encounter Vital Name 06/19/2023 09:33A Blood Pressure Sitting (mmHg) 100/80 Temp-Temporal 97.9 Height (in) 62.5 Weight (lb) 162 Body Mass Index 29.2 Body Surface Area 1.8 Last Documented: On 06/19/2023 9:33AM ; [facility] Results Includes: Results discussed during this encounter No Results Recorded For Specified Dates History of Present Illness Includes: History of Present Illness from this encounter JORDAN MARINO is a 62 year old female. - Allergy list reviewed - Medication list reviewed - Primary Care Provider: Dr. Kumar Social History Description Last Updated Not using drugs 08/11/2023 Last Documented On 4 9:30AM ; [facility] Not using alcohol 05/27/2022 Last Documented On 4 9:30AM ; [facility] Tobacco non-user 05/27/2022 Last Documented On 4 9:30AM ; [facility] Smoking Status Unknown Procedures and Surgical History Includes: Procedures from this encounter Procedures Code Diagnosis Performing Provider Service Location Service Date FIT TEST-SCREENING FOR FECAL OCCULT BLOOD (CLIA WAIVED) 57591 Encounter for screening for malignant neoplasm of colon ROBINSON GRIFFIN [facility] 06/19/2023 Last Documented On 4 1:26PM ; [facility] low fat diet Last Documented On 4 9:33AM ; [facility] use of tobacco assessment performed 1000F Last Documented On 4 9:36AM ; [facility] history of cervical Pap smear 28183 Last Documented On 4 9:36AM ; [facility] fecal occult blood test was negative 52291 Last Documented On 4 9:31AM ; [facility] patient recently had a dexa scan 8 Last Documented On 4 9:36AM ; [facility] Surgical History Last Updated History of hysterectomy 201105/17/2021 Last Documented On 4 9:30AM ; [facility] Surgical / procedural histor y gal bladder removed, ~surgery both arms ~surgery both legs ~Right knee ~Left foot ~Endometrial ablation ~Lithotripsy ~Breast Implants (silicone) ~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 ~Bladder sling after hyst ~bunion removed from left foot 05/17/2021 Last Documented On 4 9:30AM ; [facility] Medical History Includes: Medical History addressed during this encounter Description Last Updated Not sexually active 06/19/2023 Last Documented On 4 9:44AM ; [facility] History of diaignostic fiberoptic colono scopy 01/18/2022 06/19/2023 Last Documented On 4 9:44AM ; [facility] History of screening mammogram was perfo rmed 05/28/2022 06/19/2023 Last Documented On 4 9:44AM ; [facility] 2 05/17/2021 Last Documented On 4 9:30AM ; [facility] History of a DXA of the lateral lumbar s pine was performed 01/19/2018 wnl 05/17/2021 Last Documented On 4 9:30AM ; [facility] History of hyperlipidemia 05/17/2021 Last Documented On 4 9:30AM ; [facility] History of hypothyroidism 05/17/2021 Last Documented On 4 9:30AM ; [facility] LMP: 201105/17/2021 Last Documented On 4 9:30AM ; [facility] Para 2 05/17/2021 Last Documented On 4 9:30AM ; [facility] Family History Includes: Family History addressed during this encounter Description Last Updated Maternal history of diabetes mellitus mo m, mgm 02/18/2019 Last Documented On 4 9:30AM ; [facility] Paternal history of hypertension father 02/18/2019 Last Documented On 4 9:30AM ; [facility] Review of Systems Includes: Review of [...] Last Documented On 4 9:37AM ; [facility] Encounters Encounter Provider Location Date Check-In Time Check-Out Time Diagnosis WELL WOMAN - ESTABLISHED PT [facility] 06/19/19 24 9:30AM 9:45AM Screening Malig. Neoplasm Rectum,Normal Female Exam Insurance Includes: Active Insurance Policies Plan Name Member ID Group # Subscriber Relationship Effect sandy Dates 1 - [facility] MED PLAN [id number] YAMILET MARINO Self Clinical Notes Includes: Clinical Notes from this encounter * Progress note Date Encounter Last Documented by 06/19/2023 WELL WOMAN - ESTABLISHED PT Last documented on 06/19/2023; 9:44 AM, [facility] Active Problems & Conditions - [...]
--- OUTSIDE RECORDS SUMMARY | 2024-04-15 00:32 | XMS_ITS | Clinical Summary ---
Author Organization [facility] Address [address] [place] [address] Phone Care Team Providers Care Patch Finisher Name Role Phone ISMAEL KUMAR DO Primary Care Provider [phone] FREDDY ROSALES, PARVIZ C Unavailable [phone] Reason for Visit and Chief Complaint The Chief Complaint is: WWE, no c/o, one new partner Problems Includes: Problems addressed during this encounter and other active Problems All Visits Onset Date Resolved Date Provider Condition S tatus Hypertension Systemic 06/19/2023 ROBINSON GRIFFIN [facility] Active Last Documented On 4 9:34AM ; [facility] Gynecologic Services Thermal Endometrial Ablation 01/15/2018 ROBINSON GRIFFIN [facility]NP-[facility] Active Last Documented On 8 10:00AM ; [facility] Hypothyroidism 01/15/2018 ROBINSON GRIFFIN [facility]NP-BC Active Last Documented On 8 10:00AM ; [facility] Postsurgical State 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/15/2018 ROBINSON AMADO [facility]NP-BC Active Last Documented On 8 9:55AM ; [facility] Plan of Treatment - Follow-up visit 1 year or as needed - Last Documented On 05/17/2021 1:48PM ; [facility] - Clinical summary provided to patient - Last Documented On 05/17/2021 1:48PM ; [facility] Pending Tests Order Diagnosis Results Due Ordering P ronadir Radiology @ other - *MAMMOGRAPHY SCREENING MAMMOGRAM Encntr screen mammogram for malignant neoplasm of breast 07/03/23 ROBINSON GRIFFIN WHNP-BC Last Documented On 4 9:47AM ; [facility] Instructions to patient Instructions for patient : B reast Self Exam discussed Last Documented On 2 1:40PM ; [facility] Lose weight Last Documented On 2 1:41PM ; [facility] Safe sex counseling Last Documented On 2 1:48PM ; [facility] Education and Decision Aids were provided during visit for: Patient Education: Daily juaquin cium and vitamin D Last Documented On 2 1:40PM ; [facility] Patient Education: weight be aring exercise Last Documented On 2 1:40PM ; [facility] Assessments Includes: Assessments from this encounter Findings - NORMAL FEMALE EXAM [Z01.419 - Encounter for gynecological examination (general) (routine) without abnormal findings] - Last Documented On 05/17/2021 1:48PM ; [facility] - Screening Malig. Neoplasm Rectum [Z12.12 - Encounter for screening for malignant neoplasm of rectum] - Last Documented On 05/17/2021 1:48PM ; [facility] Instructions Includes: Instructions from this encounter Instructions to patient Instructions for patient : B reast Self Exam discussed Last Documented On 2 1:40PM ; [facility] Lose weight Last Documented On 2 1:41PM ; [facility] Safe sex counseling Last Documented On 2 1:48PM ; [facility] Education and Decision Aids were provided during visit for: Patient Education: Daily juaquin cium and vitamin D Last Documented On 2 1:40PM ; [facility] Patient Education: weight be aring exercise Last Documented On 2 1:40PM ; [facility] Medical Equipment - Implanted [...] On 4 3:16PM By JUSTINE PARKER ; [facility] Levothyroxine Sodium 125 MCG Oral Tablet 03/24/2023 Provider: Diagnosis: Last Documented On 4 3:16PM By JUSTINE PARKER ; [facility] Lisinopril 10 MG Oral Tablet 05/11/2020 Provider: Diagnosis: Last Documented On 4 3:16PM By JUSTINE PARKER ; [facility] Synthroid 50 MCG Tablet 12/19/2015 Provider: Diagnosis: Last Documented On 4 3:16PM By JUSTINE CAMACHOGRISEL ; [facility] Medications Administered Includes: Administered Medications from this encounter No Administered Medications Recorded Vital Signs Includes: Vital Signs from this encounter Vital Name 05/17/2021 01:36P Blood Pressure Sitting L 116/70 BP Cuff Size Large Temp-Temporal 97.2 Height (in) 63.57 Weight (lb) 182 Body Mass Index (kg/m2) 31.7 Body Surface Area (m2) 1.9 Last Documented: On 05/17/2021 1:39PM ; [facility] Results Includes: Results discussed [...] 05/17/2021 Last Documented On 2 1:48PM ; [facility] Not using drugs 05/17/2021 Last Documented On 2 1:48PM ; [facility] Smoking status : Former smoker 2 Last Documented On 2 1:48PM ; [facility] Social history unchanged 05/17/2021 Last Documented On 2 1:48PM ; [facility] Procedures and Surgical History Includes: Procedures from this encounter Procedures Code Diagnosis Performing Provider Service L ocation Service Date low fat diet Last Documented On 2 1:41PM ; [facility] use of tobacco assessment performed 1000F Last Documented On 2 1:40PM ; [facility] review of medications documented 1160F Last Documented On 2 1:41PM ; [facility] fecal occult blood test was negative 59076 Last Documented On 2 1:40PM ; [facility] a BD Affirm was performed Last Documented On 2 1:48PM ; [facility] Surgical History Last Updated History of hysterectomy 201105/17/2021 Last Documented On 2 1:48PM ; [facility] Surgical / procedural histor y gal bladder removed, ~surgery both arms ~surgery both legs ~Right knee ~Left foot ~Endometrial ablation ~Lithotripsy ~Breast Implants (silicone) ~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 ~Bladder sling after hyst ~bunion removed from left foot 05/17/2021 Last Documented On 2 1:48PM ; [facility] Medical History Includes: Medical History addressed during this encounter Description Last Updated History of colonoscopy fiberoptic was pe rformed 201705/17/2021 Last Documented On 2 1:48PM ; [facility] History of screening mammogram was perfo rmed 04/27/2021 05/17/2021 Last Documented On 2 1:48PM ; [facility] 2 05/17/2021 Last Documented On 2 1:48PM ; [facility] History of a DXA of the lateral lumbar s pine was performed 01/19/2018 wnl 05/17/2021 Last Documented On 2 1:48PM ; [facility] History of complete colonoscopy 2017 Dr Gaona repeat in 5 years 05/17/2021 Last Documented On 2 1:48PM ; [facility] History of hyperlipidemia 05/17/2021 Last Documented On 2 1:48PM ; [facility] History of hypothyroidism 05/17/2021 Last Documented On 2 1:48PM ; [facility] Last mammogram date: 04/06/2020 2 Last Documented On 2 1:48PM ; [facility] LMP: 201105/17/2021 Last Documented On 2 1:48PM ; [facility] No recent change in medical history 05/01 Last Documented On 2 1:48PM ; [facility] Not sexually active 05/17/2021 Last Documented On 2 1:48PM ; [facility] Para 2 05/17/2021 Last Documented On 2 1:48PM ; [facility] Result: normal @[facility] 05/17/2021 Last Documented On 2 1:48PM ; [facility] Family History [...] Active Last Documented On 4 9:37AM ; [facility] Encounters Encounter Provider Location Date Check-In Time Check-Out Time Diagnosis WELL WOMAN - ESTABLISHED PT ROBINSON GRIFFIN [facility] 05/18/19 22 1:34PM 1:53PM Screening Malig. Neoplasm Rectum,Normal Female Exam Insurance Includes: Active Insurance Policies Plan Name Member ID Group # Subscriber Relationship Effect sandy Dates 1 - [facility] MED PLAN [id number] YAMILET MARINO Self Clinical Notes Includes: Clinical Notes from this encounter No Clinical Notes Recorded
--- OUTSIDE RECORDS SUMMARY | 2024-04-15 00:32 | XMS_ITS | Clinical Summary ---
Author Organization [facility] Address [address] [place] [address] Phone Care Team Providers Care News Broadcaster Name Role Phone ISMAEL KUMAR DO Primary Care Provider [phone] FREDDY ROSALES, PARVIZ C Unavailable [phone] Reason for Visit and Chief Complaint The Chief Complaint is: WWE, no c/o, no new partners Problems Includes: Problems addressed during this encounter and other active Problems All Visits Onset Date Resolved Date Provider Condition S tatus Hypertension Systemic 06/19/2023 ROBINSON GRIFFIN WHNP-BC Active Last Documented On 4 9:34AM ; [facility] Gynecologic Services Thermal Endometrial Ablation 01/15/2018 ROBINSON GRIFFIN WHNP-BC Active Last Documented On 8 10:00AM ; [facility] Hypothyroidism 01/15/2018 ROBINSON GRIFFIN WHNP-BC Active Last Documented On 8 10:00AM ; [facility] Postsurgical State 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/15/2018 ROBINSON AMADO WHNP-BC Active Last Documented On 8 9:55AM ; [facility] Plan of Treatment - Follow-up visit 1 year or as needed - Last Documented On 05/11/2020 3:09PM ; [facility] - Clinical summary provided to patient - Last Documented On 05/11/2020 3:09PM ; [facility] Pending Tests Order Diagnosis Results Due Ordering P ronadir Radiology @ other - *MAMMOGRAPHY SCREENING MAMMOGRAM Encntr screen mammogram for malignant neoplasm of breast 07/03/23 ROBINSON GRIFFIN WHNP-BC Last Documented On 4 9:47AM ; [facility] Instructions to patient Instructions for patient : B reast Self Exam discussed Last Documented On 1 2:48PM ; [facility] Lose weight Last Documented On 1 2:50PM ; [facility] Education and Decision Aids were provided during visit for: Patient Education: Daily juaquin cium and vitamin D Last Documented On 1 2:48PM ; [facility] Patient Education: weight be aring exercise Last Documented On 1 2:48PM ; [facility] Assessments Includes: Assessments from this encounter Findings - NORMAL FEMALE EXAM [Z01.419 - Encounter for gynecological examination (general) (routine) without abnormal findings] - Last Documented On 05/11/2020 3:09PM ; [facility] - Screening Malig. Neoplasm Rectum [Z12.12 - Encounter for screening for malignant neoplasm of rectum] - Last Documented On 05/11/2020 3:09PM ; [facility] Instructions Includes: Instructions from this encounter Instructions to patient Instructions for patient : B reast Self Exam discussed Last Documented On 1 2:48PM ; [facility] Lose weight Last Documented On 1 2:50PM ; [facility] Education and Decision Aids were provided during visit for: Patient Education: Daily juaquin cium and vitamin D Last Documented On 1 2:48PM ; [facility] Patient Education: weight be aring exercise Last Documented On 1 2:48PM ; [facility] Medical Equipment - Implanted Devices Includes: [...] On 4 3:16PM By JUSTINE PARKER ; [facility] Levothyroxine Sodium 125 MCG Oral Tablet 03/24/2023 Provider: Diagnosis: Last Documented On 4 3:16PM By JUSTINE PARKER ; [facility] Lisinopril 10 MG Oral Tablet 05/11/2020 Provider: Diagnosis: Last Documented On 4 3:16PM By JUSTINE PARKER ; [facility] Synthroid 50 MCG Tablet 12/19/2015 Provider: Diagnosis: Last Documented On 4 3:16PM By JUSTINE PARKER ; [facility] Medications Administered Includes: Administered Medications from this encounter No Administered Medications Recorded Vital Signs Includes: Vital Signs from this encounter Vital Name 05/11/2020 02:53P Blood Pressure Sitting L 128/80 BP Cuff Size Large Temp-Oral (F) 98 Height (in) 64 Weight (lb) 189 Body Mass Index (kg/m2) 32.4 Body Surface Area (m2) 1.9 Last Documented: On 05/11/2020 2:56PM ; [facility] Results Includes: Results discussed [...] 05/11/2020 Last Documented On 1 3:09PM ; [facility] Not using drugs 05/11/2020 Last Documented On 1 3:09PM ; [facility] Smoking status : Former smoker 1 Last Documented On 1 3:09PM ; [facility] Social history unchanged 05/11/2020 Last Documented On 1 3:09PM ; [facility] Procedures and Surgical History Includes: Procedures from this encounter Procedures Code Diagnosis Performing Provider Service L ocation Service Date low fat diet Last Documented On 1 2:50PM ; [facility] review of medications documented 1160F Last Documented On 1 2:57PM ; [facility] fecal occult blood test was negative [id number] Last Documented On 1 2:48PM ; [facility] a colonoscopy was performed 2019 Last Documented On 1 2:57PM ; [facility] patient recently had a dexa scan Last Documented On 1 2:57PM ; [facility] Surgical History Last Updated History of hysterectomy 201105/11/2020 Last Documented On 1 3:09PM ; [facility] Surgical / procedural histor y gal bladder removed, ~surgery both arms ~surgery both legs ~Right knee ~Left foot ~Endometrial ablation ~Lithotripsy ~Breast Implants (silicone) ~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 ~Bladder sling after hyst ~bunion removed from left foot 05/11/2020 Last Documented On 1 3:09PM ; [facility] Medical History Includes: Medical History addressed during this encounter Description Last Updated Last mammogram date: 04/06/2020 Last Documented On 1 3:09PM ; [facility] History of screening mammogram was perfo rmed 04/06/2020 05/11/2020 Last Documented On 1 3:09PM ; [facility] 2 05/11/2020 Last Documented On 1 3:09PM ; [facility] History of a DXA of the lateral lumbar s pine was performed 01/19/2018 wnl 05/11/2020 Last Documented On 1 3:09PM ; [facility] History of complete colonoscopy 2017 Dr Candelaria bales in 5 years 05/11/2020 Last Documented On 1 3:09PM ; [facility] History of hyperlipidemia 05/11/2020 Last Documented On 1 3:09PM ; [facility] History of hypothyroidism 05/11/2020 Last Documented On 1 3:09PM ; [facility] LMP: 201105/11/2020 Last Documented On 1 3:09PM ; [facility] No recent change in medical history 05/01 Last Documented On 1 3:09PM ; [facility] Not sexually active 05/11/2020 Last Documented On 1 3:09PM ; [facility] Para 2 05/11/2020 Last Documented On 1 3:09PM ; [facility] Result: normal @[facility] 05/11/2020 Last Documented On 1 3:09PM ; [facility] Family History Includes: Family History addressed during [...] Documented On 4 9:37AM ; [facility] Encounters Encounter Provider Location Date Check-In Time Check-Out Time Diagnosis WELL WOMAN - ESTABLISHED PT ROBINSON GRIFFIN [facility] 05/12/19 21 2:46PM 3:11PM Screening Malig. Neoplasm Rectum,Normal Female Exam Insurance Includes: Active Insurance Policies Plan Name Member ID Group # Subscriber Relationship Effect sandy Dates 1 - [employer] MED PLAN [id number] YAMILET MARINO Self Clinical Notes Includes: Clinical Notes from this encounter No Clinical Notes Recorded
--- OUTSIDE RECORDS SUMMARY | 2024-04-15 00:32 | XMS_ITS | Referral Summary ---
Author Organization [facility] [address] Address [address] [place] [address] Phone Care Team Providers Care Career Technical Counselor Name Role Phone Sarah Hensley NP Primary Care Provider [phone] Encounters Date Type Department Care Team Description 01/21/2024 Telephone [facility] Primary Care at [address] [place] [address] John Byrnes Appointment from Last 3 Months Allergies Active Allergy Reactions Criticality Noted Date Comments Penicillins Itching,Rash Medium 08/12/2008 Medications cholecalciferol (VITAMIN D-3) 5,000 unit capsule Take 1 capsule (5,000 Units total) by mouth daily Active levothyroxine (SYNTHROID) 125 mcg tabletIndications:Acqui red hypothyroidism Take 1 tablet (125 mcg total) by mouth basket braider before breakfast 90 tablet 3 01/22/20 23 [...] (09/27/2021): Added automatically from request for surgery [id number] Influenza vaccine refused 01/23/2021 History of kidney [...] LMP (LMP Unknown) SpO2 98% BMI 27.40 kg/m Lab Results Component Value Date POTASSIUM 4.3 01/21/2023 At goal at this time Continue lisinopril 2.5 mg every day Assessment & Plan (01/21/2023 9:[address] [facility]): Blood pressure at goal less than 140/90, continue current prescription medications. Assessment & Plan (08/07/2022 9:02 PM CDT): Blood pressure at goal less than 140/90, continue current prescription medications, lisinopril. Assessment & Plan (01/31/2022 1:[address] LIGHT): Blood pressure at goal less than 140/90, [...] follow. Assessment & Plan (04/28/2019 12:[address] LIGHT): Advised against the use of Adipex for weight mgmt. Continue to monitor bp. Notify our office if bp > 140/90. Snoring 05/26/2018 Assessment & Plan (05/26/2018 10:31 AM CDT): [place] Sleepiness scale done, score is 14. Referral [...] day Assessment & Plan (01/21/2023 9:[address] LIGHT): LDL at goal of less than 100, continue current prescription medications. Assessment & Plan (08/07/2022 9:03 PM CDT): LDL at goal of less than 100, continue current prescription medications, simvastatin. Assessment & Plan (01/31/2022 1:[address] LIGHT): LDL near goal of < 100, low [...] 12/19/2017 Assessment & Plan (01/23/2021 2:[address] LIGHT): Abnormal CT scan of abdomen and pelvis with renal stone protocol. Referred to gastroenterology for screening colonoscopy. Patient could not remember her last colonoscopy nor did I have record of any past colonoscopies in her EHR. Hemangioma of liver 12/19/2017 Overview (12/19/2017): Result Impression IMPRESSION: 1. No sonographically evident hemangioma within the imaged right upper abdomen. If there is clinical concern for hepatic hemangioma, this could be better assessed by liver mass protocol CT or MRI. 2. Cholecystectomy. 3. Hepatic steatosis. Result Narrative EXAMINATION: Right upper quadrant abdominal ultrasound HISTORY: 54-year-old female with reported intra-abdominal hemangioma, elevated liver function tests. Prior cholecystectomy. TECHNIQUE: Targeted sonographic evaluation of the abdominal right upper quadrant was performed. COMPARISON: Upper GI series 12/27/2013 FINDINGS: The gallbladder surgically absent. The hepatic echogenicity is diffusely increased, most consistent with steatosis. No focal hepatic mass or intrahepatic biliary ductal dilatation is identified. The common bile duct is normal in caliber, measuring 0.5 cm. The main portal vein is patent, with normally directed blood flow. The right kidney appears grossly unremarkable, measuring 10.4 x 3.8 x 4.2 cm. No right renal mass, hydronephrosis, perinephric fluid collection is identified. THIS IS AN ELECTRONICALLY VERIFIED REPORT 12/19/2015 10:32 AM: Milton Watson M.D. Milton Watson M.D. Radiologist Tinnitus 02/10/2015 Overview (06/08/2016): Ringing in the ears, bilateral Hypothyroidism 09/06/2013 Overview (04/28/2019): Hypothyroid Assessment & Plan (07/22/2023 8:43 AM CDT): Lab Results Component Value Date TSH 0.84 01/21/2023 Euthyroid Recheck labs Continue lvt 125 mcg Assessment & Plan (01/21/2023 8:[address] [facility]): Asymptomatic. Stable. Continue current prescription medications. Assessment & Plan (08/07/2022 9:03 PM CDT): Asymptomatic. Stable. Continue current prescription medications, levothyroxine. Assessment & Plan (01/31/2022 1:[address] LIGHT): ASx Cont. Current prescription medications. Assessment & [...] GI Assessment & Plan (01/21/2023 9:[address] LIGHT): Asymptomatic. Stable. Continue current prescription medications. Assessment & Plan (08/07/2022 9:03 PM CDT): Asymptomatic. Stable. Continue current prescription medications, pantoprazole. Assessment & Plan (01/31/2022 1:[address] LIGHT): Asymptomatic. Stable. Continue current prescription medications. Assessment & Plan (05/22/2021 9:27 AM CDT): Asymptomatic. Stable. Continue current prescription medications. Assessment & Plan (11/22/2020 10:16 AM CDT): Asx. Continue current therapy. Followed by GI. Assessment & Plan (05/15/2020 9:27 AM CDT): Asx. Continue current therapy. Assessment & Plan (11/09/2019 3:15 PM CDT): Asx. Continue current therapy. Assessment & Plan (04/28/2019 12:[address] [facility]IGHT): Asx. Continue current therapy. Assessment & Plan (05/26/2018 10:30 AM CDT): Worsening symptoms, requests referral to GI. Continue Protonix 40mg qd Assessment & Plan (12/22/2017 6:11 PM CDT): Stable. Cont. Current meds. Protonix 40mg qd. Managed by GI. Resolved Problems Problem Noted Date Diagnosed Date Resolved Date Acute cough 03/10/2023 07/22/2023 Assessment & Plan (03/10/2023 3:[address] LIGHT): Influenza and COVID tests were ordered, they were both negative. Prescriptions given, increase water intake, rest. Acute bronchitis 03/10/2023 07/22/2023 Assessment & Plan (03/10/2023 3:[address] [facility]IGHT): Symptoms present for the past 9 days with no improvement. Trial of oral antibiotics, steroids, cough medication. Return to clinic if there is no improvement. Cervical radiculopathy 08/28/202207/21 Assessment & Plan (01/21/2023 9:[address] [facility]): Trial of steroid-dose pack, referred to pain mgmt. Cervical spinal stenosis 08/28/2022 Myalgia 08/28/2022 07/22/2023 DDD (degenerative disc disease), thoracic 07/25/2022 07/22/2023 Assessment & Plan (08/07/2022 9:02 PM CDT): Pain exacerbated, Rxs given, will follow. Chronic midline thoracic back pain 07/25/2022 07/22/2023 Assessment & Plan (01/21/2023 9:[address] [facility]): Trial of steroid-dose pack. Referred to pain [...] (09/27/2021): Added automatically from request for surgery [id number] Acute left-sided low back pa in with left-sided sciatica 01/10/2021 07/22/2023 Assessment & Plan (01/23/2021 2:[address] LIGHT): Pain resolved. Cetea-li-mhyojg exercises recommended. Will order urinalysis with reflex to culture based on abnormal CT results. Assessment & Plan (01/10/2021 2:[address] LIGHT): Labs ordered, Rx meds given, notify our office of worsening signs/symptoms. Flank pain 01/10/2021 01/10/2021 Prediabetes 05/15/2020 07/25/2022 Assessment & Plan (01/31/2022 1:[address] [facility]): Asx. Labs ordered, will follow. Assessment & Plan (05/15/2020 9:28 AM CDT): Low-carbohydrate diet recommended. Will recheck A1c. Aftercare following surgery 02/21/2020 05/15/2020 Carpal tunnel syndrome on right 02/10/2020 02/21/2020 Overview (02/10/2020): Added automatically from request for surgery [id number] Right lateral epicondylitis 02/10/2020 05/15/2020 Overview (02/10/2020): Added automatically from request for surgery [id number] Elbow pain, chronic, right 12/18/2019 0 07/22/2023 [...] recommended. Assessment & Plan (01/23/2021 2:[address] [facility]IGHT): Weight reduction, daily exercise and dietary modifications recommended. Assessment & Plan (01/10/2021 2:[address] LIGHT): Weight reduction, daily exercise and dietary modifications [...] recommended. Assessment & Plan (04/28/2019 12:[address] [facility]IGHT): Unchanged. Encouraged patient to decrease weight, increase daily exercise, and modify diet. Chronic fatigue 05/26/2018 07/22/2023 Assessment & Plan (05/26/2018 10:31 AM CDT): [place] Sleepiness scale done, score is 14. Referral to Sleep medicine. Cervicalgia 04/29/2018 05/15/2020 Assessment & Plan (04/28/2019 12:[address] [facility]IGHT): C-spine xrays ordered. Continue heating pad 20 mins/hr prn and prn use of flexeril. Consider OTC pain reliever of choice prn. Assessment & Plan (04/29/2018 9:[address] [facility]IGHT): Patient is leaving for [place] in a few days. 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 COMPARISON: 05/28/2022, 04/27/2021, 04/06/2020, 02/17/2019, 01/12/2018 TECHNIQUE: CC and MLO views of the bilateral breasts were obtained with implant in view and implant displaced view utilizing digital technique using breast tomosynthesis with C view. Computer aided detection was utilized. FINDINGS: DENSITY: The tissue of the bilateral breasts is heterogeneously dense, which may obscure small masses. BREASTS: There are bilateral subglandular silicone implants. There are no suspicious masses, suspicious calcifications, or other suspicious findings in either breast. There has been no suspicious interval change. us Self Screening Mammogram IMG MAMMO PROCEDURES Fi nal Result * COLONOSCOPY (01/18/2022 8:[address] [facility]) Anatomical Region Laterality Modality Other Narrative Procedure Note Tabatha Knowles MD - 01/18/2022 8:48 AM CST [facility] Patient Name: Carla Summers Procedure Date: 01/18/2022 8:48 AM Date of : 1960 Admit Type: Outpatient Age: 61 Gender: Female Attending MD: Tabatha Knowles M.D. Room: [facility]COPY RO[facility] 1 Note Status: Finalized Patient Profile: This is a 61 year old female. History of colonpolyps. No family history of colon cancer. Procedure: Colonoscopy Indications: High risk colon cancer surveillance: Personalhistory of colonic polyps, Last colonoscopy: 2018 Referring MD: Marlene Kumar D.O. Providers: Tabatha [...] under direct vision. The Pediatric Colonoscope PCF-H190L [id number] was introducedthrough the anus and advanced to [...] 8:48 AM Procedure Code(s): --- Professional --- 93458, Colonoscopy, flexible; diagnostic, including collection of specimen(s) by brushing or washing, when performed (separateprocedure) Diagnosis Code(s): --- Professional --- Z86.010, Personal history of colonic polyps K64.8, Other hemorrhoids CPT copyright 2020 [employer]. All rights reserved. The codes documented in this report are preliminary and upon senior accounting clerk reviewmay be revised to meet current compliance requirements. Recognized by the [employer] for promoting quality in endoscopy Tabatha Knowles MD ENDOSCOPY PROCEDURES Final Result * Hepatitis C antibody (04/28/2019 10:[address] [facility]) Hep C Ab Negative Negative JOSR LOVE (JULIO C) Comment:Testing performed by : [facility], [address] [place] [address], [place]., [address] Blood specimen (specimen) 04/28/2019 10:[address] [facility] 04/28/2019 6:[address] [facility] Marlene Kumar DO LAB MICROBIOLOGY - GENERAL ORDERABLES Final Result JOSR LOVE (JULIO C) [address] [facility] Department [place] [address] from Last 3 Months or Most Recently Relevant to Health Maintenance Insurance [employer] Advance Directives For more information, please contact: [phone] * Full Code (Latest Code Status on File) Date Activated Date Inactivated Comments 01/18/2022 8:37 AM 01/18/2022 3:28 PM * Full Code Date Activated Date Inactivated Comments 01/18/2022 8:37 AM 01/18/2022 8:37 AM Care Teams Career Technical Counselor Relationship Specialty Start Date End Date Sarah Hensley NP [address] [place] [id number] PCP - General Nurse Practitioner 09/22/23
--- OUTSIDE RECORDS SUMMARY | 2024-04-15 00:32 | XMS_ITS | Clinical Summary ---
Author Organization [facility] Address [address] [place] [address] Phone Care Team Providers Care Pitching Coach Name Role Phone ISMAEL CABRERA DO Primary Care Provider [phone] FREDDY ROSALES, PARVIZ Otto Unavailable [phone] Reason for Visit and Chief Complaint The Chief Complaint is: WWE. no concerns today. No new sexual partners Problems Includes: Problems addressed during this encounter and other active Problems All Visits Onset Date Resolved Date Provider Condition S tatus Hypertension Systemic 06/19/2023 ROBINSON GRIFFIN WHNP-BC Active Last Documented On 4 9:34AM ; [facility] Gynecologic Services Thermal Endometrial Ablation 01/15/2018 ROBINSON GRIFFIN WHNP-BC Active Last Documented On 8 10:00AM ; [facility] Hypothyroidism 01/15/2018 ROBINSON GRIFFIN WHNP-BC Active Last Documented On 8 10:00AM ; [facility] Postsurgical State 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/15/2018 ROBINSON AMADO WHNP-BC Active Last Documented On 8 9:55AM ; [facility] Plan of Treatment - Follow-up visit 1 year or as needed - Last Documented On 05/27/2022 3:27PM ; [facility] - Clinical summary provided to patient - Last Documented On 05/27/2022 3:27PM ; [facility] Pending Tests Order Diagnosis Results Due Ordering P carlovider In office procedures - *Clia Waived Labs *FOBT* Fecal Occult Blood Test Encounter for screening for malignant neoplasm of rectum 06/10/22 ROBINSON GRIFFIN WHNP-BC Last Documented On 4 11:07AM ; [facility] Radiology @ other - *MAMMOGRAPHY SCREENING MAMMOGRAM Encntr screen mammogram for malignant neoplasm of breast 07/03/23 ROBINSON GRIFFIN WHNP-BC Last Documented On 4 9:47AM ; [facility] Instructions to patient Instructions for patient : B reast Self Exam discussed Last Documented On 3 3:06PM ; [facility] Lose weight Last Documented On 3 3:07PM ; [facility] Education and Decision Aids were provided during visit for: Patient Education: Daily juaquin cium and vitamin D Last Documented On 3 3:06PM ; [facility] Patient Education: weight be aring exercise Last Documented On 3 3:06PM ; [facility] Assessments Includes: Assessments from this encounter Findings - NORMAL FEMALE EXAM [Z01.419 - Encounter for gynecological examination (general) (routine) without abnormal findings] - Last Documented On 05/27/2022 3:27PM ; [facility] Instructions Includes: Instructions from this encounter Instructions to patient Instructions for patient : B reast Self Exam discussed Last Documented On 3 3:06PM ; [facility] Lose weight Last Documented On 3 3:07PM ; [facility] Education and Decision Aids were provided during visit for: Patient Education: Daily juaquin cium and vitamin D Last Documented On 3 3:06PM ; [facility] Patient Education: weight be aring exercise Last Documented On 3 3:06PM ; [facility] Medical Equipment - Implanted Devices Includes: Current Devices No Medical Equipment Recorded Medications Includes: Medications discussed during this encounter and other current Medications Current Medications (continue as prescribed) Methocarbamol 500 MG Oral Tablet 08/11/2023 Provider: JUSTINE SINGLETON, MECHANICAL RELIABILITY ENGINEER-BC Diagnosis: Myalgia, unspeci fied site One tablet three times a day as needed for muscle spasm/stiffness Last Documented On 4 3:16PM By JUSTINE COHN MECHANICAL RELIABILITY ENGINEER-BC ; [facility] Levothyroxine Sodium 125 MCG Oral Tablet 03/24/2023 Provider: Diagnosis: Last Documented On 4 3:16PM By JUSTINE PARKER ; [facility] Lisinopril 10 MG Oral Tablet 05/11/2020 Provider: Diagnosis: Last Documented On 4 3:16PM By JUSTINE PARKER ; [facility] Synthroid 50 MCG Tablet 12/19/2015 Provider: Diagnosis: Last Documented On 4 3:16PM By JUSTINE PARKER ; [facility] Medications Administered Includes: Administered Medications from this encounter No Administered Medications Recorded Vital Signs Includes: Vital Signs from this encounter Vital Name 05/27/2022 03:14P Blood Pressure Sitting L 124/86 BP Cuff Size Regular Temp-Temporal 98 Height (in) 64 Weight (lb) 202 Body Mass Index 34.7 Body Surface Area 2 Last Documented: On 05/27/2022 3:16PM ; [facility] Results Includes: Results discussed [...] 05/27/2022 Last Documented On 3 3:27PM ; [facility] Not using drugs 05/27/2022 Last Documented On 3 3:27PM ; [facility] Tobacco non-user 05/27/2022 Last Documented On 3 3:27PM ; [facility] Non-smoker 02/18/2019 Last Documented On 3 3:06PM ; [facility] Smoking Status Unknown Procedures and Surgical History Includes: Procedures from this encounter Procedures Code Diagnosis Performing Provider Service L ocation Service Date low fat diet Last Documented On 3 3:07PM ; [facility] use of tobacco assessment performed 1000F Last Documented On 3 3:13PM ; [facility] review of medications documented 1160F Last Documented On 3 3:13PM ; [facility] patient recently had a dexa scan 8 Last Documented On 3 3:13PM ; [facility] a BD Affirm was performed Last Documented On 3 3:26PM ; [facility] Surgical History Last Updated History of hysterectomy 201105/17/2021 Last Documented On 3 3:06PM ; [facility] Surgical / procedural histor y gal bladder removed, ~surgery both arms ~surgery both legs ~Right knee ~Left foot ~Endometrial ablation ~Lithotripsy ~Breast Implants (silicone) ~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 ~Bladder sling after hyst ~bunion removed from left foot 05/17/2021 Last Documented On 3 3:06PM ; [facility] Medical History Includes: Medical History addressed during this encounter Description Last Updated Last mammogram date: 04/27/2021 3 Last Documented On 3 3:27PM ; [facility] Sexually active 05/27/2022 Last Documented On 3 3:27PM ; [facility] History of colonoscopy fiber optic was performed 2017 or March at [facility] 05/27/2022 Last Documented On 3 3:27PM ; [facility] History of screening mammogram was perfo rmed 04/27/2021 05/27/2022 Last Documented On 3 3:27PM ; [facility] 2 05/17/2021 Last Documented On 3 3:06PM ; [facility] History of a DXA of the lateral lumbar s pine was performed 01/19/2018 wnl 05/17/2021 Last Documented On 3 3:06PM ; [facility] History of hyperlipidemia 05/17/2021 Last Documented On 3 3:06PM ; [facility] History of hypothyroidism 05/17/2021 Last Documented On 3 3:06PM ; [facility] LMP: 201105/17/2021 Last Documented On 3 3:06PM ; [facility] Para 2 05/17/2021 Last Documented On 3 3:06PM ; [facility] Family History Includes: Family History addressed during this encounter Description Last Updated Maternal history of diabetes mellitus mo bia, mgm 02/18/2019 Last Documented On 3 3:06PM ; [facility] Paternal history of hypertension father 02/18/2019 Last Documented On 3 3:06PM ; [facility] Family history of hypertension father Last Documented On 3 3:06PM ; [facility] Review of Systems Includes: Review of Systems [...] Active Last Documented On 4 9:37AM ; [facility] Encounters Encounter Provider Location Date Check-In Time Check-Out Time Diagnosis [facility] WOMAN - ESTABLISHED PT [facility] 05/28/19 23 3:03PM 3:28PM Normal Female Exam Insurance Includes: Active Insurance Policies Plan Name Member ID Group # Subscriber Relationship Effect sandy Dates 1 - [facility] [employer] MED PLAN [id number] YAMILET MARINO Self Clinical Notes Includes: Clinical Notes from this encounter * Progress note Date Encounter Last Documented by 05/27/2022 WELL WOMAN - ESTABLISHED PT Last documented on 05/27/2022; 3:27 PM, [facility] Active Problems & Conditions - Gynecologic Services [...] fiberoptic was performed 2017 or March at [facility]. Screening mammogram was performed 04/27/2021. A DXA [...] please get most recent colonoscopy report from [facility]. Thank you! Billing Please remove fit charge [...]
--- OUTSIDE RECORDS SUMMARY | 2024-04-15 00:32 | XMS_ITS | Clinical Summary ---
Author Organization [facility] [address] Address [address] [place] [address] Phone Care Team Providers [employer] Dean Name Role Phone Sarah Hensley NP Primary Care Provider [phone] Allergies Active Allergy Reactions Criticality Noted Date Comments Penicillins Itching,Rash Medium 08/12/2008 Medications cholecalciferol (VITAMIN D-3) 5,000 unit capsule Take 1 capsule (5,000 Units total) by mouth daily Active levothyroxine (SYNTHROID) 125 mcg tabletIndications:Acqui red hypothyroidism Take 1 tablet (125 mcg total) by mouth addictions therapist before breakfast 90 tablet 3 01/22/20 23 [...] (09/27/2021): Added automatically from request for surgery [id number] Influenza vaccine refused 01/23/2021 History of kidney [...] day Assessment & Plan (01/21/2023 9:01 AM HIDE DYER): Blood pressure at goal less than 140/90, continue current prescription medications. Assessment & Plan (08/07/2022 9:02 PM CDT): Blood pressure at goal less than 140/90, continue current prescription medications, lisinopril. Assessment & Plan (01/31/2022 1:15 PM HIDE DYER): Blood pressure at goal less than 140/90, [...] follow. Assessment & Plan (04/28/2019 12:41 PM HIDE DYER): Advised against the use of Adipex for weight mgmt. Continue to monitor bp. Notify our office if bp > 140/90. Snoring 05/26/2018 Assessment & Plan (05/26/2018 10:31 AM CDT): Lamy Sleepiness scale done, score is 14. Referral [...] day Assessment & Plan (01/21/2023 9:01 AM HIDE DYER): LDL at goal of less than 100, continue current prescription medications. Assessment & Plan (08/07/2022 9:03 PM CDT): LDL at goal of less than 100, continue current prescription medications, simvastatin. Assessment & Plan (01/31/2022 1:16 PM HIDE DYER): LDL near goal of < 100, low [...] 12/19/2017 Assessment & Plan (01/23/2021 2:43 PM HIDE DYER): Abnormal CT scan of abdomen and pelvis [...] mcg Assessment & Plan (01/21/2023 8:59 AM HIDE DYER): Asymptomatic. Stable. Continue current prescription medications. Assessment & Plan (08/07/2022 9:03 PM CDT): Asymptomatic. Stable. Continue current prescription medications, levothyroxine. Assessment & Plan (01/31/2022 1:16 PM HIDE DYER): ASx Cont. Current prescription medications. Assessment & [...] GI Assessment & Plan (01/21/2023 9:00 AM HIDE DYER): Asymptomatic. Stable. Continue current prescription medications. Assessment & Plan (08/07/2022 9:03 PM CDT): Asymptomatic. Stable. Continue current prescription medications, pantoprazole. Assessment & Plan (01/31/2022 1:15 PM HIDE DYER): Asymptomatic. Stable. Continue current prescription medications. Assessment & Plan (05/22/2021 9:27 AM CDT): Asymptomatic. Stable. Continue current prescription medications. Assessment & Plan (11/22/2020 10:16 AM CDT): Asx. Continue current therapy. Followed by GI. Assessment & Plan (05/15/2020 9:27 AM CDT): Asx. Continue current therapy. Assessment & Plan (11/09/2019 3:15 PM CDT): Asx. Continue current therapy. Assessment & Plan (04/28/2019 12:42 PM HIDE DYER): Asx. Continue current therapy. Assessment & Plan (05/26/2018 10:30 AM CDT): Worsening symptoms, requests referral to GI. Continue Protonix 40mg qd Assessment & Plan (12/22/2017 6:11 PM CDT): Stable. Cont. Current meds. Protonix 40mg qd. Managed by GI. Resolved Problems Problem Noted Date Diagnosed Date Resolved Date Acute cough 03/10/2023 07/22/2023 Assessment & Plan (03/10/2023 3:19 PM HIDE DYER): Influenza and COVID tests were ordered, they were both negative. Prescriptions given, increase water intake, rest. Acute bronchitis 03/10/2023 07/22/2023 Assessment & Plan (03/10/2023 3:20 PM HIDE DYER): Symptoms present for the past 9 days with no improvement. Trial of oral antibiotics, steroids, cough medication. Return to clinic if there is no improvement. Cervical radiculopathy 08/28/202207/21 Assessment & Plan (01/21/2023 9:02 AM HIDE DYER): Trial of steroid-dose pack, referred to pain mgmt. Cervical spinal stenosis 08/28/2022 Myalgia 08/28/2022 07/22/2023 DDD (degenerative disc disease), thoracic 07/25/2022 07/22/2023 Assessment & Plan (08/07/2022 9:02 PM CDT): Pain exacerbated, Rxs given, will follow. Chronic midline thoracic back pain 07/25/2022 07/22/2023 Assessment & Plan (01/21/2023 9:02 AM HIDE DYER): Trial of steroid-dose pack. Referred to pain [...] (09/27/2021): Added automatically from request for surgery [id number] Acute left-sided low back pa in with left-sided sciatica 01/10/2021 07/22/2023 Assessment & Plan (01/23/2021 2:42 PM HIDE DYER): Pain resolved. [id number] exercises recommended. Will order urinalysis with reflex to culture based on abnormal CT results. Assessment & Plan (01/10/2021 2:54 PM HIDE DYER): Labs ordered, Rx meds given, notify our office of worsening signs/symptoms. Flank pain 01/10/2021 01/10/2021 Prediabetes 05/15/2020 07/25/2022 Assessment & Plan (01/31/2022 1:15 PM HIDE DYER): Asx. Labs ordered, will follow. Assessment & Plan (05/15/2020 9:28 AM CDT): Low-carbohydrate diet recommended. Will recheck A1c. Aftercare following surgery 02/21/2020 05/15/2020 Carpal tunnel syndrome on right 02/10/2020 02/21/2020 Overview (02/10/2020): Added automatically from request for surgery [id number] Right lateral epicondylitis 02/10/2020 05/15/2020 Overview (02/10/2020): Added automatically from request for surgery [id number] Elbow pain, chronic, right 12/18/2019 0 07/22/2023 [...] recommended. Assessment & Plan (01/23/2021 2:42 PM HIDE DYER): Weight reduction, daily exercise and dietary modifications recommended. Assessment & Plan (01/10/2021 2:54 PM HIDE DYER): Weight reduction, daily exercise and dietary modifications [...] recommended. Assessment & Plan (04/28/2019 12:42 PM HIDE DYER): Unchanged. Encouraged patient to decrease weight, increase daily exercise, and modify diet. Chronic fatigue 05/26/2018 07/22/2023 Assessment & Plan (05/26/2018 10:31 AM CDT): Lamy Sleepiness scale done, score is 14. Referral to Sleep medicine. Cervicalgia 04/29/2018 05/15/2020 Assessment & Plan (04/28/2019 12:41 PM HIDE DYER): C-spine xrays ordered. Continue heating pad 20 mins/hr prn and prn use of flexeril. Consider OTC pain reliever of choice prn. Assessment & Plan (04/29/2018 9:18 PM HIDE DYER): Patient is leaving for [place] in a few days. I start her [...] Type Department Care Team Description 01/21/2024 Telephone [facility] Primary Care at [address] [place] [address] John Byrnes. 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 Not on file Not on file Not on file Obstetrics History Para Term AB IAB SAB Ectopic Multiple Livin g Live Births 2 2 2 Date Outcome GA Total Labor Labor/2nd/3rd Weight Sex Type Anes PTL Diaen A1 A5 Name Clin Term Term Last Filed Vital Signs Vital Sign Reading Time Taken Comments Blood Pressure 108/80 07/22/2023 8:37 AM CDT Pulse 72 07/22/2023 8:37 AM CDT Temperature 37 C (98.6 F) 03/10/2023 10:58 AM HIDE DYER Respiratory Rate 16 07/22/2023 8:37 AM CDT [...] mammogram, encounter for COLONOSCOPY 01/18/2022 8:48 AM HIDE DYER HEPATITIS C ANTIBODY Routine 04/28/2019 10:52 AM HIDE DYER Encounter for hepatitis C screening test for [...] nal Result * COLONOSCOPY (01/18/2022 8:48 AM HIDE DYER) Anatomical Region Laterality Modality Other Narrative Procedure Note Tabatha Knowles MD - 01/18/2022 8:48 AM CST [facility] Patient Name: Carla Summers Procedure [...] under direct vision. The Pediatric Colonoscope [id number] was introducedthrough the anus and advanced to [...] 8:48 AM Procedure Code(s): --- Professional --- 99175, Colonoscopy, flexible; diagnostic, including collection of specimen(s) by brushing or washing, when performed (separateprocedure) Diagnosis Code(s): --- Professional --- Z86.010, Personal history of colonic polyps K64.8, Other hemorrhoids CPT copyright 2020 [employer]. All rights reserved. The codes documented in this report are preliminary and upon corporate controller reviewmay be revised to meet current compliance requirements. Recognized by the [employer] for promoting quality in endoscopy us Tabatha Knowles MD ENDOSCOPY PROCEDURES Final Result * Hepatitis C antibody (04/28/2019 10:52 AM HIDE DYER) Hep C Ab Negative Negative JOSR LOVE (JULIO C) Comment:Testing performed by : [facility], [id number] [place] [address], [place]., [address] Blood specimen (specimen) 04/28/2019 10:52 AM HIDE DYER 04/28/2019 6:45 PM HIDE DYER Marlene Kumar DO LAB MICROBIOLOGY - GENERAL ORDERABLES Final Result JOSR LOVE (JULIO C) [address] [facility] [place] [address] from Last 3 Months or Most Recently Relevant to Health Maintenance Insurance [employer] Advance Directives For more information, please contact: [phone] * Full Code (Latest Code Status on File) Date Activated Date Inactivated Comments 01/18/2022 8:37 AM 01/18/2022 3:28 PM * Full Code Date Activated Date Inactivated Comments 01/18/2022 8:37 AM 01/18/2022 8:37 AM Care Teams [employer] Dean Relationship Specialty Start Date End Date Sarah Hensley NP [address] [place] [id number] PCP - General Nurse Practitioner 09/22/23
[2024-04-15 11:11] VITALS: BP 140/75; PULSE 67; RESP 20; TEMP 36.2; O2SAT 100
[2024-04-15] MEDS: LACTATED RINGERS 1,000 ML 150 ML IV CONT (11:22)
--- NOTE | 2024-04-15 11:40 | P.PNAN_ITS ---
Anes - Initial Pre Proc Eval Procedure: Operation Date: 04/15/24 11:30 Proposed Procedures p Esophagogastroduodenoscopy - [place] Sarmiento MD Date/Time: 04/15/24 11:40 Surgeon: [place] Sarmiento MD Pre Op Diagnosis: Dysphagia Patient Data Age: 63 Gender: F Height: 1.63 m Weight: 71.4 kg Last Vital Signs Temp 36.2 C L 04/15/24 11:11 Pulse 67 04/15/24 11:11 Resp 20 04/15/24 11:11 BP 140/75 04/15/24 11:11 Pulse Ox 100 04/15/24 11:11 O2 Del Method Room Air 04/15/24 11:11 Allergies Allergy/AdvReac Type Severity Reaction Status Date / Time Penicillins Allergy Unknown Itching Verified 04/15/24 11:10 Home Medications ?Medication ?Instructions ?Recorded ?Confirmed ?Type levothyroxine 125 mcg tablet 125 mcg PO DAILY 03/02/23 04/15/24 History cholecalciferol (vitamin D3) 25 25 mcg PO DAILY 10/13/23 04/15/24 History mcg (1,000 unit) tablet (Vitamin D3) fluoxetine 10 mg capsule 10 mg PO QPM #30 caps 03/24/24 04/15/24 Rx milk thistle 150 mg capsule 150 mg PO DAILY 03/31/24 04/15/24 History thiamine HCl (vitamin B1) 50 mg 50 mg PO DAILY 03/31/24 04/15/24 History tablet vitamin B12 500 mcg-folic acid 400 1 tablet PO DAILY 03/31/24 04/15/24 History mcg tablet Patient hx anesthesia problems: none Family hx anesthesia problems: none Results Review: All pre-operative results and documents have been reviewed as part of the pre- operative evaluation. [facility] Past Medical History Medical History Hypothyroidism History of hypertension Disorder of thyroid Surgical History Surgical History History of cholecystectomy Family History Family History Father Hypertension Mother Diabetes mellitus Social History Social History Years smoked: 1 Smoking status: Former smoker Tobacco type: cigarettes Alcohol intake: never Substance use type: does not use Do You Feel Safe in your Home?: Yes Lack of Transportation: No Lack of Food: Never True Current Housing: I Have Housing Concerned About Future Housing: No Difficulty Paying Gas/Electric Bills: No Difficulty Paying for Meds: No Currently Unemployed: No Education: High School Diploma/GED Living arrangements: with family Occupation/Education: retired Spiritual care concerns: No Agree to blood products: Yes Anes - Eval Final PreProcedure Day of Procedure 04/15/24 11:40 Patient weight: overweight Heart: regular rate and rhythm Lungs: clear to auscultation Airway: Mallampati scale class II Neurological: alert and oriented Last oral intake: >/= 8 hours ASA classification: II Emergent: no Anesthetic plan: proceed Anesthesia type and monitoring: general GIVS and standard monitoring Results Review: All pre-operative results and documents have been reviewed as part of the pre- operative evaluation. Informed Consent: The patient's anesthetic plan and its attendant risks and benefits were discussed with the patient/family/POA. Questions were solicited and answers provided to the satisfaction of the patient/family/POA.
--- NOTE | 2024-04-15 12:39 | PM.IMHP ---
H&P: HPI History of Present Illness Date/Time: 04/15/24 12:39 Chief Complaint: Dysphagia Narrative: the patient has been suffering from intermittent solid food dysphagia for the past 2 months approximately. there is no associated heartburn, regurgitation, nausea vomiting. She states that she has had esophageal dilatations many years ago. Review of Systems Review of Systems: All systems reviewed & are unremarkable except as noted in HPI and below PMFSH Past Medical History Medical History Hypothyroidism History of hypertension Disorder of thyroid Surgical History Surgical History History of cholecystectomy Family History Family History Father Hypertension Mother Diabetes mellitus Social History Social History Years smoked: 1 Smoking status: Former smoker Tobacco type: cigarettes Alcohol intake: never Substance use type: does not use Do You Feel Safe in your Home?: Yes Lack of Transportation: No Lack of Food: Never True Current Housing: I Have Housing Concerned About Future Housing: No Difficulty Paying Gas/Electric Bills: No Difficulty Paying for Meds: No Currently Unemployed: No Education: High School Diploma/GED Living arrangements: with family Occupation/Education: retired Spiritual care concerns: No Agree to blood products: Yes Meds Home Medications and Allergies Home Medications ?Medication ?Instructions ?Recorded ?Confirmed ?Type levothyroxine 125 mcg tablet 125 mcg PO DAILY 03/02/23 04/15/24 History cholecalciferol (vitamin D3) 25 25 mcg PO DAILY 10/13/23 04/15/24 History mcg (1,000 unit) tablet (Vitamin D3) fluoxetine 10 mg capsule 10 mg PO QPM #30 caps 03/24/24 04/15/24 Rx milk thistle 150 mg capsule 150 mg PO DAILY 03/31/24 04/15/24 History thiamine HCl (vitamin B1) 50 mg 50 mg PO DAILY 03/31/24 04/15/24 History tablet vitamin B12 500 mcg-folic acid 400 1 tablet PO DAILY 03/31/24 04/15/24 History mcg tablet Allergies Allergy/AdvReac Type Severity Reaction Status Date / Time Penicillins Allergy Unknown Itching Verified 04/15/24 11:10 Vital Signs Vital Signs - 24 hr 04/15/24 11:11 Temperature 97.2 F L Pulse Rate 67 Respiratory Rate 20 Blood Pressure 140/75 Pulse Oximetry 100 Oxygen Delivery Room Air Exam Const: General: cooperative and healthy appearing Resp: Effort & Inspection: normal respiratory effort and able to speak in complete sentences Auscultation: clear to auscultation bilaterally Cardio: Rate: regular rate Rhythm: regular rhythm GI: Inspection: normal to inspection GI Palp: No No hepatosplenomegaly present Auscultation: normal bowel sounds Rectal Exam: deferred Skin: General skin exam: normal color Psych: Appearance: grossly normal Mental Status: mental status grossly normal Assessment and Plan Assessment and plan (1) Dysphagia: Code(s): R13.10 - Dysphagia, unspecified Status: Acute Assessment and Plan: Differential diagnosis includes eosinophilic esophagitis, Schatzki ring or, less likely peptic stricture. Will perform EGD with possible dilatation. The patient is deemed a good candidate for the procedure. Consent signed. Will proceed.
[2024-04-15 13:19] VITALS: BP 120/73; PULSE 83; RESP 17; O2SAT 100
[2024-04-15 13:29] VITALS: BP 124/78; PULSE 76; RESP 18; O2SAT 99
[2024-04-15 13:39] VITALS: BP 142/80; PULSE 73; RESP 22; O2SAT 99
== END 2024-04-15 13:41 | disposition home or self-care (01) ==
PROVIDERS: PCP Nurse Practitioner Adult Health; Visit Provider Internal Medicine Gastroenterology
PROC: 0DJ08ZZ Inspection of Upper Intestinal Tract, Via Natural or Artificial Opening Endoscopic (ICD-10-PCS; CPT 43249; principal; 2024-04-15 11:30)
DX: K22.2 Esophageal obstruction (principal); K44.9 Diaphragmatic hernia without obstruction or gangrene; E03.9 Hypothyroidism, unspecified; I10 Essential (primary) hypertension; E07.9 Disorder of thyroid, unspecified; Z98.890 Other specified postprocedural states; Z90.49 Acquired absence of other specified parts of digestive tract; Z87.891 Personal history of nicotine dependence
CPT/HCPCS: 43249; C1726; J2003; J2704; J7120

== ENCOUNTER 2024-09-22 10:05 | Outpatient (CLI) | payer OTHER, SELFPAY ==
--- OUTSIDE RECORDS SUMMARY | 2024-09-22 10:11 | XMS_ITS | Referral Summary ---
Author Organization [facility] [address] Address [address] [place] [address] Phone Care Team Providers Care Virologist Name Role Phone Sarah Hensley NP Primary Care Provider [phone] Encounters Date Type Department Care Team Description 07/13/2024 1:48 PM CDT - 07/13/2024 11:59 PM CDT Hospital Encounter [facility] [address] [place] [id number] Screening mammogram, encounter for Discharge Disposition: Discharge to home or self care from Last 3 Months Allergies Active Allergy Reactions Criticality Noted Date Comments Penicillins Itching,Rash Medium 08/12/2008 Medications cholecalciferol (VITAMIN D-3) 5,000 unit capsule Take 1 capsule (5,000 Units total) by mouth daily Active levothyroxine (SYNTHROID) 125 mcg tabletIndications:Acqui red hypothyroidism Take 1 tablet (125 mcg total) by mouth event marketing representative before breakfast 90 tablet 3 01/22/20 23 [...] (09/27/2021): Added automatically from request for surgery [id number] Influenza vaccine refused 01/23/2021 History of kidney stones 01/10/2021 Primary hypertension 04/28/2019 Assessment & Plan (07/22/2023 8:43 AM CDT): BP Readings from Last 3 Encounters: 07/22/23 108/80 03/10/23 122/80 01/21/23 116/90 Vitals BP 108/80 (BP Location: Left arm, Patient Position: Sitting) Pulse 72 Resp 16 Ht 162.6 cm (5' 4.02) Wt 72.4 kg (159 lb 11.2 oz) LMP (LMP Unknown) SpO2 98% BMI 27.40 kg/m Lab Results Component Value Date POTASSIUM 4.3 01/21/2023 At goal at this time Continue lisinopril 2.5 mg every day Assessment & Plan (01/21/2023 9:01 AM INVESTMENT EXECUTIVE): Blood pressure at goal less than 140/90, continue current prescription medications. Assessment & Plan (08/07/2022 9:02 PM CDT): Blood pressure at goal less than 140/90, continue current prescription medications, lisinopril. Assessment & Plan (01/31/2022 1:15 PM INVESTMENT EXECUTIVE): Blood pressure at goal less than 140/90, [...] follow. Assessment & Plan (04/28/2019 12:41 PM INVESTMENT EXECUTIVE): Advised against the use of Adipex for weight mgmt. Continue to monitor bp. Notify our office if bp > 140/90. Snoring 05/26/2018 Assessment & Plan (05/26/2018 10:31 AM CDT): Alex Sleepiness scale done, score is 14. Referral [...] day Assessment & Plan (01/21/2023 9:01 AM INVESTMENT EXECUTIVE): LDL at goal of less than 100, continue current prescription medications. Assessment & Plan (08/07/2022 9:03 PM CDT): LDL at goal of less than 100, continue current prescription medications, simvastatin. Assessment & Plan (01/31/2022 1:16 PM INVESTMENT EXECUTIVE): LDL near goal of < 100, low [...] 12/19/2017 Assessment & Plan (01/23/2021 2:43 PM INVESTMENT EXECUTIVE): Abnormal CT scan of abdomen and pelvis [...] mcg Assessment & Plan (01/21/2023 8:59 AM INVESTMENT EXECUTIVE): Asymptomatic. Stable. Continue current prescription medications. Assessment & Plan (08/07/2022 9:03 PM CDT): Asymptomatic. Stable. Continue current prescription medications, levothyroxine. Assessment & Plan (01/31/2022 1:16 PM INVESTMENT EXECUTIVE): ASx Cont. Current prescription medications. Assessment & [...] GI Assessment & Plan (01/21/2023 9:00 AM INVESTMENT EXECUTIVE): Asymptomatic. Stable. Continue current prescription medications. Assessment & Plan (08/07/2022 9:03 PM CDT): Asymptomatic. Stable. Continue current prescription medications, pantoprazole. Assessment & Plan (01/31/2022 1:15 PM INVESTMENT EXECUTIVE): Asymptomatic. Stable. Continue current prescription medications. Assessment & Plan (05/22/2021 9:27 AM CDT): Asymptomatic. Stable. Continue current prescription medications. Assessment & Plan (11/22/2020 10:16 AM CDT): Asx. Continue current therapy. Followed by GI. Assessment & Plan (05/15/2020 9:27 AM CDT): Asx. Continue current therapy. Assessment & Plan (11/09/2019 3:15 PM CDT): Asx. Continue current therapy. Assessment & Plan (04/28/2019 12:42 PM INVESTMENT EXECUTIVE): Asx. Continue current therapy. Assessment & Plan (05/26/2018 10:30 AM CDT): Worsening symptoms, requests referral to GI. Continue Protonix 40mg qd Assessment & Plan (12/22/2017 6:11 PM CDT): Stable. Cont. Current meds. Protonix 40mg qd. Managed by GI. Resolved Problems Problem Noted Date Diagnosed Date Resolved Date Acute cough 03/10/2023 07/22/2023 Assessment & Plan (03/10/2023 3:19 PM INVESTMENT EXECUTIVE): Influenza and COVID tests were ordered, they were both negative. Prescriptions given, increase water intake, rest. Acute bronchitis 03/10/2023 07/22/2023 Assessment & Plan (03/10/2023 3:20 PM INVESTMENT EXECUTIVE): Symptoms present for the past 9 days with no improvement. Trial of oral antibiotics, steroids, cough medication. Return to clinic if there is no improvement. Cervical radiculopathy 08/28/202207/21 Assessment & Plan (01/21/2023 9:02 AM INVESTMENT EXECUTIVE): Trial of steroid-dose pack, referred to pain mgmt. Cervical spinal stenosis 08/28/2022 Myalgia 08/28/2022 07/22/2023 DDD (degenerative disc disease), thoracic 07/25/2022 07/22/2023 Assessment & Plan (08/07/2022 9:02 PM CDT): Pain exacerbated, Rxs given, will follow. Chronic midline thoracic back pain 07/25/2022 07/22/2023 Assessment & Plan (01/21/2023 9:02 AM INVESTMENT EXECUTIVE): Trial of steroid-dose pack. Referred to pain [...] (09/27/2021): Added automatically from request for surgery [id number] Acute left-sided low back pa in with left-sided sciatica 01/10/2021 07/22/2023 Assessment & Plan (01/23/2021 2:42 PM INVESTMENT EXECUTIVE): Pain resolved. Dotzl-wa-csmtow exercises recommended. Will order urinalysis with reflex to culture based on abnormal CT results. Assessment & Plan (01/10/2021 2:54 PM INVESTMENT EXECUTIVE): Labs ordered, Rx meds given, notify our office of worsening signs/symptoms. Flank pain 01/10/2021 01/10/2021 Prediabetes 05/15/2020 07/25/2022 Assessment & Plan (01/31/2022 1:15 PM INVESTMENT EXECUTIVE): Asx. Labs ordered, will follow. Assessment & Plan (05/15/2020 9:28 AM CDT): Low-carbohydrate diet recommended. Will recheck A1c. Aftercare following surgery 02/21/2020 05/15/2020 Carpal tunnel syndrome on right 02/10/2020 02/21/2020 Overview (02/10/2020): Added automatically from request for surgery [id number] Right lateral epicondylitis 02/10/2020 05/15/2020 Overview (02/10/2020): Added automatically from request for surgery [id number] Elbow pain, chronic, right 12/18/2019 0 07/22/2023 [...] recommended. Assessment & Plan (01/23/2021 2:42 PM INVESTMENT EXECUTIVE): Weight reduction, daily exercise and dietary modifications recommended. Assessment & Plan (01/10/2021 2:54 PM INVESTMENT EXECUTIVE): Weight reduction, daily exercise and dietary modifications [...] recommended. Assessment & Plan (04/28/2019 12:42 PM INVESTMENT EXECUTIVE): Unchanged. Encouraged patient to decrease weight, increase daily exercise, and modify diet. Chronic fatigue 05/26/2018 07/22/2023 Assessment & Plan (05/26/2018 10:31 AM CDT): Alex Sleepiness scale done, score is 14. Referral to Sleep medicine. Cervicalgia 04/29/2018 05/15/2020 Assessment & Plan (04/28/2019 12:41 PM INVESTMENT EXECUTIVE): C-spine xrays ordered. Continue heating pad 20 mins/hr prn and prn use of flexeril. Consider OTC pain reliever of choice prn. Assessment & Plan (04/29/2018 9:18 PM INVESTMENT EXECUTIVE): Patient is leaving for [place] in a few days. 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 Not on file Not on file Not on file Last Filed Vital Signs Vital Sign Reading Time Taken Comments Blood Pressure 108/80 07/22/2023 8:37 AM CDT Pulse 72 07/22/2023 8:37 AM CDT Temperature 37 C (98.6 F) 03/10/2023 10:58 AM INVESTMENT EXECUTIVE Respiratory Rate 16 07/22/2023 8:37 AM CDT Oxygen Saturation 98% 07/22/2023 8:37 AM CDT Inhaled Oxygen Concentration - - Weight 73 kg (160 lb 15 oz) 07/13/2024 2:07 PM C DT Height 162.6 cm (5' 4) 07/13/2024 2:07 PM CDT Body Mass Index 27.62 07/13/2024 2:07 PM CDT Plan of Treatment Not on file Procedures Procedure Name Priority Date/Time Associated Diagnosis Comments SCREENING MAMMOGRAM BILATERAL W JOSÉ ANTONIO W IMPLANTS Schedule Routine, Read Routine (OP Routine) 07/13/2024 2:20 PM CDT Screening mammogram, encounter for COLONOSCOPY 01/18/2022 8:48 AM INVESTMENT EXECUTIVE HEPATITIS C ANTIBODY Routine 04/28/2019 10:52 AM INVESTMENT EXECUTIVE Encounter for hepatitis C screening test for low risk patient from Last 3 Months or Most Recently Relevant to Health Maintenance Results * Screening Mammogram Bilateral W José Antonio W Implants (07/13/2024 2:20 PM CDT) Anatomical Region Laterality Modality Breast Bilateral Mammography Impressions 07/15/2024 5:44 PM CDT Bilateral No evidence of malignancy in either breast. OVERALL BI-RADS FINAL ASSESSMENT: 1 - Negative RECOMMENDATION: Recommend bilateral annual screening mammography. Narrative 07/15/2024 5:44 PM CDT EXAMINATION: Screening Mammogram Bilateral W José Antonio W Implants: 07/13/2024 COMPARISON: Relevant prior studies available at the time of interpretation were reviewed. TECHNIQUE: Mammography was performed with 2D and digital breast tomosynthesis (DBT) images. CAD was utilized. BREAST PARENCHYMAL COMPOSITION: The breasts are heterogeneously dense, which may obscure small masses. FINDINGS: Bilateral There is no suspicious mass, calcification, or architectural distortion in either breast. There are bilateral prepectoral silicone implants. The presence of implants limits the sensitivity of mammography. us Self Screening Mammogram IMG MAMMO PROCEDURES Fi nal Result * COLONOSCOPY (01/18/2022 8:48 AM INVESTMENT EXECUTIVE) Anatomical Region Laterality Modality Other Narrative Procedure Note Tabatha Knowles MD - 01/18/2022 8:48 AM CST [facility] Patient Name: Carla Summers Procedure Date: 01/18/2022 8:48 AM Date of : 1960 Admit Type: Outpatient Age: 61 Gender: Female Attending MD: Tabatha Knowles M.D. Room: [facility] ENDOSCOPY ROOM 1 Note Status: Finalized Patient [...] under direct vision. The Pediatric Colonoscope PCF-H190L [id number] was introducedthrough the anus and advanced to [...] 8:48 AM Procedure Code(s): --- Professional --- 05331, Colonoscopy, flexible; diagnostic, including collection of specimen(s) by brushing or washing, when performed (separateprocedure) Diagnosis Code(s): --- Professional --- Z86.010, Personal history of colonic polyps K64.8, Other hemorrhoids CPT copyright 2020 [employer]. All rights reserved. The codes documented in this report are preliminary and upon structural steel fitter reviewmay be revised to meet current compliance requirements. Recognized by the [employer] for promoting quality in endoscopy us Tabatha Knowles MD ENDOSCOPY PROCEDURES Final Result * Hepatitis C antibody (04/28/2019 10:52 AM INVESTMENT EXECUTIVE) Hep C Ab Negative Negative JOSR LOVE (JULIO C) Comment:Testing performed by : [facility], [address] [place] [address], [facility], [facility] Blood specimen (specimen) 04/28/2019 10:52 AM INVESTMENT EXECUTIVE 04/28/2019 6:45 PM INVESTMENT EXECUTIVE Marlene Kumar DO LAB MICROBIOLOGY - GENERAL ORDERABLES Final Result JOSR LOVE (JULIO C) [address] [facility] Department [place] [address] from Last 3 Months or Most Recently Relevant to Health Maintenance Insurance [employer] Advance Directives For more information, please contact: [phone] * Full Code (Latest Code Status on File) Date Activated Date Inactivated Comments 01/18/2022 8:37 AM 01/18/2022 3:28 PM * Full Code Date Activated Date Inactivated Comments 01/18/2022 8:37 AM 01/18/2022 8:37 AM Care Teams Virologist Relationship Specialty Start Date End Date Sarah Hensley NP [address] [place] [address] PCP - General Nurse Practitioner 09/22/23
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
--- OUTSIDE RECORDS SUMMARY | 2024-09-22 10:11 | XMS_ITS | Clinical Summary ---
Author Organization [facility] [address] Address [address] [place] [address] Phone Care Team Providers Care Administrative Supervisor Name Role Phone Sarah Hensley NP Primary Care Provider [phone] Allergies Active Allergy Reactions Criticality Noted Date Comments Penicillins Itching,Rash Medium 08/12/2008 Medications cholecalciferol (VITAMIN D-3) 5,000 unit capsule Take 1 capsule (5,000 Units total) by mouth daily Active levothyroxine (SYNTHROID) 125 mcg tabletIndications:Acqui red hypothyroidism Take 1 tablet (125 mcg total) by mouth wet primer powder blender before breakfast 90 tablet 3 01/22/20 23 [...] (09/27/2021): Added automatically from request for surgery [id number] Influenza vaccine refused 01/23/2021 History of kidney [...] day Assessment & Plan (01/21/2023 9:01 AM HELICOPTER MECHANIC): Blood pressure at goal less than 140/90, continue current prescription medications. Assessment & Plan (08/07/2022 9:02 PM CDT): Blood pressure at goal less than 140/90, continue current prescription medications, lisinopril. Assessment & Plan (01/31/2022 1:15 PM HELICOPTER MECHANIC): Blood pressure at goal less than 140/90, [...] follow. Assessment & Plan (04/28/2019 12:41 PM HELICOPTER MECHANIC): Advised against the use of Adipex for weight mgmt. Continue to monitor bp. Notify our office if bp > 140/90. Snoring 05/26/2018 Assessment & Plan (05/26/2018 10:31 AM CDT): [place] Sleepiness scale done, score is 14. Referral [...] day Assessment & Plan (01/21/2023 9:01 AM HELICOPTER MECHANIC): LDL at goal of less than 100, continue current prescription medications. Assessment & Plan (08/07/2022 9:03 PM CDT): LDL at goal of less than 100, continue current prescription medications, simvastatin. Assessment & Plan (01/31/2022 1:16 PM HELICOPTER MECHANIC): LDL near goal of < 100, low [...] 12/19/2017 Assessment & Plan (01/23/2021 2:43 PM HELICOPTER MECHANIC): Abnormal CT scan of abdomen and pelvis [...] mcg Assessment & Plan (01/21/2023 8:59 AM HELICOPTER MECHANIC): Asymptomatic. Stable. Continue current prescription medications. Assessment & Plan (08/07/2022 9:03 PM CDT): Asymptomatic. Stable. Continue current prescription medications, levothyroxine. Assessment & Plan (01/31/2022 1:16 PM HELICOPTER MECHANIC): ASx Cont. Current prescription medications. Assessment & [...] GI Assessment & Plan (01/21/2023 9:00 AM HELICOPTER MECHANIC): Asymptomatic. Stable. Continue current prescription medications. Assessment & Plan (08/07/2022 9:03 PM CDT): Asymptomatic. Stable. Continue current prescription medications, pantoprazole. Assessment & Plan (01/31/2022 1:15 PM HELICOPTER MECHANIC): Asymptomatic. Stable. Continue current prescription medications. Assessment & Plan (05/22/2021 9:27 AM CDT): Asymptomatic. Stable. Continue current prescription medications. Assessment & Plan (11/22/2020 10:16 AM CDT): Asx. Continue current therapy. Followed by GI. Assessment & Plan (05/15/2020 9:27 AM CDT): Asx. Continue current therapy. Assessment & Plan (11/09/2019 3:15 PM CDT): Asx. Continue current therapy. Assessment & Plan (04/28/2019 12:42 PM HELICOPTER MECHANIC): Asx. Continue current therapy. Assessment & Plan (05/26/2018 10:30 AM CDT): Worsening symptoms, requests referral to GI. Continue Protonix 40mg qd Assessment & Plan (12/22/2017 6:11 PM CDT): Stable. Cont. Current meds. Protonix 40mg qd. Managed by GI. Resolved Problems Problem Noted Date Diagnosed Date Resolved Date Acute cough 03/10/2023 07/22/2023 Assessment & Plan (03/10/2023 3:19 PM HELICOPTER MECHANIC): Influenza and COVID tests were ordered, they were both negative. Prescriptions given, increase water intake, rest. Acute bronchitis 03/10/2023 07/22/2023 Assessment & Plan (03/10/2023 3:20 PM HELICOPTER MECHANIC): Symptoms present for the past 9 days with no improvement. Trial of oral antibiotics, steroids, cough medication. Return to clinic if there is no improvement. Cervical radiculopathy 08/28/202207/21 Assessment & Plan (01/21/2023 9:02 AM HELICOPTER MECHANIC): Trial of steroid-dose pack, referred to pain mgmt. Cervical spinal stenosis 08/28/2022 Myalgia 08/28/2022 07/22/2023 DDD (degenerative disc disease), thoracic 07/25/2022 07/22/2023 Assessment & Plan (08/07/2022 9:02 PM CDT): Pain exacerbated, Rxs given, will follow. Chronic midline thoracic back pain 07/25/2022 07/22/2023 Assessment & Plan (01/21/2023 9:02 AM HELICOPTER MECHANIC): Trial of steroid-dose pack. Referred to pain [...] (09/27/2021): Added automatically from request for surgery [id number] Acute left-sided low back pa in with left-sided sciatica 01/10/2021 07/22/2023 Assessment & Plan (01/23/2021 2:42 PM HELICOPTER MECHANIC): Pain resolved. Qmwmn-fh-hymtje exercises recommended. Will order urinalysis with reflex to culture based on abnormal CT results. Assessment & Plan (01/10/2021 2:54 PM HELICOPTER MECHANIC): Labs ordered, Rx meds given, notify our office of worsening signs/symptoms. Flank pain 01/10/2021 01/10/2021 Prediabetes 05/15/2020 07/25/2022 Assessment & Plan (01/31/2022 1:15 PM HELICOPTER MECHANIC): Asx. Labs ordered, will follow. Assessment & Plan (05/15/2020 9:28 AM CDT): Low-carbohydrate diet recommended. Will recheck A1c. Aftercare following surgery 02/21/2020 05/15/2020 Carpal tunnel syndrome on right 02/10/2020 02/21/2020 Overview (02/10/2020): Added automatically from request for surgery [id number] Right lateral epicondylitis 02/10/2020 05/15/2020 Overview (02/10/2020): Added automatically from request for surgery [id number] Elbow pain, chronic, right 12/18/2019 0 07/22/2023 [...] recommended. Assessment & Plan (01/23/2021 2:42 PM HELICOPTER MECHANIC): Weight reduction, daily exercise and dietary modifications recommended. Assessment & Plan (01/10/2021 2:54 PM HELICOPTER MECHANIC): Weight reduction, daily exercise and dietary modifications [...] recommended. Assessment & Plan (04/28/2019 12:42 PM HELICOPTER MECHANIC): Unchanged. Encouraged patient to decrease weight, increase daily exercise, and modify diet. Chronic fatigue 05/26/2018 07/22/2023 Assessment & Plan (05/26/2018 10:31 AM CDT): [place] Sleepiness scale done, score is 14. Referral to Sleep medicine. Cervicalgia 04/29/2018 05/15/2020 Assessment & Plan (04/28/2019 12:41 PM HELICOPTER MECHANIC): C-spine xrays ordered. Continue heating pad 20 mins/hr prn and prn use of flexeril. Consider OTC pain reliever of choice prn. Assessment & Plan (04/29/2018 9:18 PM HELICOPTER MECHANIC): Patient is leaving for [place] in a few days. 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 Not on file [...] 37 C (98.6 F) 03/10/2023 10:58 AM HELICOPTER MECHANIC Respiratory Rate 16 07/22/2023 8:37 AM CDT Oxygen Saturation 98% 07/22/2023 8:37 AM CDT Inhaled Oxygen Concentration - - Weight 73 kg (160 lb 15 oz) 07/13/2024 2:07 PM C DT Height 162.6 cm (5' 4) 07/13/2024 2:07 PM CDT Body Mass Index 27.62 07/13/2024 2:07 PM CDT Plan of Treatment Health Maintenance Due Date Last Done Comments Hepatitis B Screening 1978 Zoster Vaccine (1 of 2) 2010 Regular Well Visit/Exam 18-64 01/22/2024 01/21/2023, 01/31/2022, 11/20/2020, Additional history exists Depression Screening 07/21/2024 07/22/2023, 03/10/2023, 01/21/2023, Additional history exists Influenza Vaccine (Season Ended) 2024 12/16/2019, 11/25/2018, 12/19/2017, Additional history exists Breast Cancer Screening-Mammogram 07/13/2025 07/13/2024, 07/12/2023, 05/28/2022, Additional history exists Colon Cancer Screening-Colonoscopy 01/18/2027 [...] mammogram, encounter for COLONOSCOPY 01/18/2022 8:48 AM HELICOPTER MECHANIC HEPATITIS C ANTIBODY Routine 04/28/2019 10:52 AM HELICOPTER MECHANIC Encounter for hepatitis C screening test for [...] nal Result * COLONOSCOPY (01/18/2022 8:48 AM HELICOPTER MECHANIC) Anatomical Region Laterality Modality Other Narrative Procedure Note Tabatha Knowles MD - 01/18/2022 8:48 AM CST [facility] Patient Name: Carla Summers Procedure Date: 01/18/2022 8:48 AM Date of : 1960 Admit Type: Outpatient Age: 61 Gender: Female Attending MD: Tabatha Knowles M.D. Room: [facility] RO[facility] 1 Note Status: Finalized Patient Profile: [...] under direct vision. The Pediatric Colonoscope PCF-H190L [id number] was introducedthrough the anus and advanced to [...] 8:48 AM Procedure Code(s): --- Professional --- 86835, Colonoscopy, flexible; diagnostic, including collection of specimen(s) by brushing or washing, when performed (separateprocedure) Diagnosis Code(s): --- Professional --- Z86.010, Personal history of colonic polyps K64.8, Other hemorrhoids CPT copyright 2020 [employer]. All rights reserved. The codes documented in this report are preliminary and upon dry mixer reviewmay be revised to meet current compliance requirements. Recognized by the [employer] for promoting quality in endoscopy Tabatha Knowles MD ENDOSCOPY PROCEDURES Final Result * Hepatitis C antibody (04/28/2019 10:52 AM HELICOPTER MECHANIC) Hep C Ab Negative Negative JOSR LOVE (JULIO C) Comment:Testing performed by : [facility], [address] [place] [address]., [facility] Blood specimen (specimen) 04/28/2019 10:52 AM HELICOPTER MECHANIC 04/28/2019 6:45 PM HELICOPTER MECHANIC Marlene Kumar DO LAB MICROBIOLOGY - GENERAL ORDERABLES Final Result [facility] (JULIO C) 1 [facility] [place] [address] from Last 3 Months or Most Recently Relevant to Health Maintenance Insurance [employer] Advance Directives For more information, please contact: [phone] * Full Code (Latest Code Status on File) Date Activated Date Inactivated Comments 01/18/2022 8:37 AM 01/18/2022 3:28 PM * Full Code Date Activated Date Inactivated Comments 01/18/2022 8:37 AM 01/18/2022 8:37 AM Care Teams Administrative Supervisor Relationship Specialty Start Date End Date Sarah Hensley NP [address] [place] [address] PCP - General Nurse Practitioner 09/22/23
[2024-09-22 18:38] LABS: Alanine Aminotransferase 23 U/L (6-35); Albumin Level 4.4 g/dL (3.5-5.1); Alkaline Phosphatase 89 U/L (38-126); Anion Gap 8 mmol/L (4-12); Aspartate Amino Transferase 52 U/L (14-36); Bilirubin,Total 0.3 mg/dL (0.2-1.3); Blood Urea Nitrogen 14 mg/dL (7-17); Calcium 9.3 mg/dL (8.4-10.2); Carbon Dioxide 23 mmol/L (22-30); Chloride 106 mmol/L (98-107); Cholesterol 192 mg/dL (0-200); Estimated Glomerular Filt Rate > 60; Glucose 82 mg/dL (65-110); HDL Direct 49 mg/dL; Potassium 4.3 mmol/L (3.4-5.0); Sodium 137 mmol/L (137-145); Total Protein 7.7 g/dL (6.3-8.2); Triglycerides 92 mg/dL (<150)
[2024-09-22 19:14] LABS: Thyroid Stimulating Hormone 1.550 uIU/mL (0.465-4.680)
== END 2024-09-22 10:06 | disposition home or self-care (01) ==
LOC: ANHBWCLAB 10:06
PROVIDERS: PCP Nurse Practitioner Adult Health; Visit Provider Nurse Practitioner Adult Health
DX: E07.9 Disorder of thyroid, unspecified (principal); I10 Essential (primary) hypertension; R79.89 Other specified abnormal findings of blood chemistry
CPT/HCPCS: 36415; 80053; 80061; 82306; 84443

== ENCOUNTER 2024-12-20 07:54 | Outpatient (CLI) | payer OTHER, SELFPAY ==
--- OUTSIDE RECORDS SUMMARY | 2024-12-20 08:00 | XMS_ITS | Clinical Summary ---
Author Organization [facility] [address] Address [address] [place] [address] Phone Care Team Providers Care Magazine Feeder Name Role Phone Sarah Hensley NP Primary Care Provider [phone] Allergies Active Allergy Reactions Criticality Noted Date Comments Penicillins Itching,Rash Medium 08/12/2008 Medications cholecalciferol (VITAMIN D-3) 5,000 unit capsule Take 1 capsule (5,000 Units total) by mouth daily Active levothyroxine (SYNTHROID) 125 mcg tabletIndications:Acqui red hypothyroidism Take 1 tablet (125 mcg total) by mouth form layer before breakfast 90 tablet 3 01/22/20 23 [...] (09/27/2021): Added automatically from request for surgery [id number] Influenza vaccine refused 01/23/2021 History of kidney [...] day Assessment & Plan (01/21/2023 9:01 AM FINE SANDER): Blood pressure at goal less than 140/90, continue current prescription medications. Assessment & Plan (08/07/2022 9:02 PM CDT): Blood pressure at goal less than 140/90, continue current prescription medications, lisinopril. Assessment & Plan (01/31/2022 1:15 PM FINE SANDER): Blood pressure at goal less than 140/90, [...] follow. Assessment & Plan (04/28/2019 12:41 PM FINE SANDER): Advised against the use of Adipex for weight mgmt. Continue to monitor bp. Notify our office if bp > 140/90. Snoring 05/26/2018 Assessment & Plan (05/26/2018 10:31 AM CDT): [place] Sleepiness scale done, score is 14. Referral [...] day Assessment & Plan (01/21/2023 9:01 AM FINE SANDER): LDL at goal of less than 100, continue current prescription medications. Assessment & Plan (08/07/2022 9:03 PM CDT): LDL at goal of less than 100, continue current prescription medications, simvastatin. Assessment & Plan (01/31/2022 1:16 PM FINE SANDER): LDL near goal of < 100, low [...] 12/19/2017 Assessment & Plan (01/23/2021 2:43 PM FINE SANDER): Abnormal CT scan of abdomen and pelvis [...] mcg Assessment & Plan (01/21/2023 8:59 AM FINE SANDER): Asymptomatic. Stable. Continue current prescription medications. Assessment & Plan (08/07/2022 9:03 PM CDT): Asymptomatic. Stable. Continue current prescription medications, levothyroxine. Assessment & Plan (01/31/2022 1:16 PM FINE SANDER): ASx Cont. Current prescription medications. Assessment & [...] GI Assessment & Plan (01/21/2023 9:00 AM FINE SANDER): Asymptomatic. Stable. Continue current prescription medications. Assessment & Plan (08/07/2022 9:03 PM CDT): Asymptomatic. Stable. Continue current prescription medications, pantoprazole. Assessment & Plan (01/31/2022 1:15 PM FINE SANDER): Asymptomatic. Stable. Continue current prescription medications. Assessment & Plan (05/22/2021 9:27 AM CDT): Asymptomatic. Stable. Continue current prescription medications. Assessment & Plan (11/22/2020 10:16 AM CDT): Asx. Continue current therapy. Followed by GI. Assessment & Plan (05/15/2020 9:27 AM CDT): Asx. Continue current therapy. Assessment & Plan (11/09/2019 3:15 PM CDT): Asx. Continue current therapy. Assessment & Plan (04/28/2019 12:42 PM FINE SANDER): Asx. Continue current therapy. Assessment & Plan (05/26/2018 10:30 AM CDT): Worsening symptoms, requests referral to GI. Continue Protonix 40mg qd Assessment & Plan (12/22/2017 6:11 PM CDT): Stable. Cont. Current meds. Protonix 40mg qd. Managed by GI. Resolved Problems Problem Noted Date Diagnosed Date Resolved Date Acute cough 03/10/2023 07/22/2023 Assessment & Plan (03/10/2023 3:19 PM FINE SANDER): Influenza and COVID tests were ordered, they were both negative. Prescriptions given, increase water intake, rest. Acute bronchitis 03/10/2023 07/22/2023 Assessment & Plan (03/10/2023 3:20 PM FINE SANDER): Symptoms present for the past 9 days with no improvement. Trial of oral antibiotics, steroids, cough medication. Return to clinic if there is no improvement. Cervical radiculopathy 08/28/202207/21 Assessment & Plan (01/21/2023 9:02 AM FINE SANDER): Trial of steroid-dose pack, referred to pain mgmt. Cervical spinal stenosis 08/28/2022 Myalgia 08/28/2022 07/22/2023 DDD (degenerative disc disease), thoracic 07/25/2022 07/22/2023 Assessment & Plan (08/07/2022 9:02 PM CDT): Pain exacerbated, Rxs given, will follow. Chronic midline thoracic back pain 07/25/2022 07/22/2023 Assessment & Plan (01/21/2023 9:02 AM FINE SANDER): Trial of steroid-dose pack. Referred to pain [...] (09/27/2021): Added automatically from request for surgery [id number] Acute left-sided low back pa in with left-sided sciatica 01/10/2021 07/22/2023 Assessment & Plan (01/23/2021 2:42 PM FINE SANDER): Pain resolved. Qccbr-zb-[id number] exercises recommended. Will order urinalysis with reflex to culture based on abnormal CT results. Assessment & Plan (01/10/2021 2:54 PM FINE SANDER): Labs ordered, Rx meds given, notify our office of worsening signs/symptoms. Flank pain 01/10/2021 01/10/2021 Prediabetes 05/15/2020 07/25/2022 Assessment & Plan (01/31/2022 1:15 PM FINE SANDER): Asx. Labs ordered, will follow. Assessment & Plan (05/15/2020 9:28 AM CDT): Low-carbohydrate diet recommended. Will recheck A1c. Aftercare following surgery 02/21/2020 05/15/2020 Carpal tunnel syndrome on right 02/10/2020 02/21/2020 Overview (02/10/2020): Added automatically from request for surgery [id number] Right lateral epicondylitis 02/10/2020 05/15/2020 Overview (02/10/2020): Added automatically from request for surgery [id number] Elbow pain, chronic, right 12/18/2019 0 07/22/2023 [...] recommended. Assessment & Plan (01/23/2021 2:42 PM FINE SANDER): Weight reduction, daily exercise and dietary modifications recommended. Assessment & Plan (01/10/2021 2:54 PM FINE SANDER): Weight reduction, daily exercise and dietary modifications [...] recommended. Assessment & Plan (04/28/2019 12:42 PM FINE SANDER): Unchanged. Encouraged patient to decrease weight, increase daily exercise, and modify diet. Chronic fatigue 05/26/2018 07/22/2023 Assessment & Plan (05/26/2018 10:31 AM CDT): [place] Sleepiness scale done, score is 14. Referral to Sleep medicine. Cervicalgia 04/29/2018 05/15/2020 Assessment & Plan (04/28/2019 12:41 PM FINE SANDER): C-spine xrays ordered. Continue heating pad 20 mins/hr prn and prn use of flexeril. Consider OTC pain reliever of choice prn. Assessment & Plan (04/29/2018 9:18 PM FINE SANDER): Patient is leaving for [place] in a few days. 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 on file Not [...] 37 C (98.6 F) 03/10/2023 10:58 AM FINE SANDER Respiratory Rate 16 07/22/2023 8:37 AM CDT [...] 03/10/2023, 01/21/2023, Additional history exists Influenza Vaccine (#1) 2024 , 11/25/2018, 12/19/2017, Additional history exists Breast Cancer [...] mammogram, encounter for COLONOSCOPY 01/18/2022 8:48 AM FINE SANDER HEPATITIS C ANTIBODY Routine 04/28/2019 10:52 AM FINE SANDER Encounter for hepatitis C screening test for [...] nal Result * COLONOSCOPY (01/18/2022 8:48 AM FINE SANDER) Anatomical Region Laterality Modality Other Narrative Procedure Note Tabatha Knowles MD - 01/18/2022 8:48 AM CST [facility] Patient Name: Carla Summers Procedure Date: 01/18/2022 8:48 AM Date of : 1960 Admit Type: Outpatient Age: 61 Gender: Female Attending MD: Tabatha Knowles M.D. Room: [facility] END[facility] RO[facility] 1 Note Status: Finalized [...] under direct vision. The Pediatric Colonoscope PCF-H190L [id number] was introducedthrough the anus and advanced to [...] 8:48 AM Procedure Code(s): --- Professional --- 18412, Colonoscopy, flexible; diagnostic, including collection of specimen(s) by brushing or washing, when performed (separateprocedure) Diagnosis Code(s): --- Professional --- Z86.010, Personal history of colonic polyps K64.8, Other hemorrhoids CPT copyright 2020 [employer]. All rights reserved. The codes documented in this report are preliminary and upon floor tiling professional reviewmay be revised to meet current compliance requirements. Recognized by the [employer] for promoting quality in endoscopy us Tabatha Knowles MD ENDOSCOPY PROCEDURES Final Result * Hepatitis C antibody (04/28/2019 10:52 AM FINE SANDER) Hep C Ab Negative Negative J[facility]R LOVE ([place]) Comment:Testing performed by : [facility], [address] [place] [address], [facility] Blood specimen (specimen) 04/28/2019 10:52 AM FINE SANDER 04/28/2019 6:45 PM FINE SANDER Marlene Kumar DO LAB MICROBIOLOGY - GENERAL ORDERABLES Final Result [facility] ([place]) 1 [facility] Department [place] [address] from Last 3 Months or Most Recently Relevant to Health Maintenance Insurance [employer] Advance Directives For more information, please contact: [phone] * Full Code (Latest Code Status on File) Date Activated Date Inactivated Comments 01/18/2022 8:37 AM 01/18/2022 3:28 PM * Full Code Date Activated Date Inactivated Comments 01/18/2022 8:37 AM 01/18/2022 8:37 AM Care Teams Magazine Feeder Relationship Specialty Start Date End Date Sarah Hensley NP [address] [place] [address] PCP - General Nurse Practitioner 09/22/23
--- OUTSIDE RECORDS SUMMARY | 2024-12-20 08:00 | XMS_ITS | Clinical Summary ---
Author Organization [facility] Address [address] [place] [address] Phone Care Team Providers Care Event Representative Name Role Phone Provider, None Primary Care [...] traMADol (ULTRAM) 50 MG TabletIndicatio ns:Colitis,Panc olitis Take 1 Tablet by mouth every 8 [...] Overview (06/19/2017): Caden Childress MD; ; Polyps [facility]; ; polyps; repeat 5 years MMT [...] = 0.6 oz pur e alcohol) occasional [facility] Utilities Answer Date Recorded In the past [...] declined 09/08/2023 How often do you attend yazidi or uatsdin serv ices? Patient declined 09/08/2023 Do you belong to any clubs o r organizations such as yazidi groups, unions, fraternal or athletic groups, or [...] medical care, and heating? Patient declined 09/08/2023 [facility] - Occupational [...] time in the past 12 m [facility], were you homeless or living in a [place] health care facility (including now)? Patient declined 09/08/2023 Comments No Sex and Gender Information Value Date Recorded Sex Assigned at Not on file Legal Sex Female 3:08 AM MISSILEMAN Gender Identity Not on file Sexual Orientation [...] Zoster Immunization (1 of 2) 2010 Mammogram 07/11/2024 07/12/2023, 05/02, 04/27/2021, Additional history exists Influenza Immunization (#1) 11/01/202412/01, 11/25/2018, 12/19/2017, Additional history exists SARS-COV-2 Immunization ( season) 2024 Colonoscopy 01/18/2025 01/18/2022, 06/01, 01/28/2015, Additional history [...] PANEL ACUTE (AHP) Routine 01/09/2018 10:35 AM MISSILEMAN Elevated liver enzymes Hepatic steatosis [facility] SCREENING BEULAH W IMPL DIGITAL W CAD Routine 01/03/2016 3:08 PM CDT Screening breast examination HM COLONOSCOPY Routine 01/28/2015 5:21 AM MISSILEMAN from Last 3 Months or Most Recently Relevant to Health Maintenance Results * HEPATITIS PANEL ACUTE (AHP) (01/09/2018 10:35 AM MISSILEMAN) HEPATITIS A IGM ANTIBODY NON DETECTED NON DETECTED 01/09/2018 10:34 PM MISSILEMAN [facility] Comment: IGM Antibodies to HAV not detected. Does not exclude early acute or recovered HAV infection. HEP B CORE AB (IGM) NON DETECTED NON DETECTED 01/09/2018 10:34 PM MISSILEMAN [facility] Comment: IGM anti-HBC not detected. Does not exclude the possibility of exposure to or infection with HBV. HEPATITIS B SURFACE ANTIGEN NON DETECTED NON DETECTED 01/09/2018 10:34 PM MISSILEMAN [facility] Comment: A nonreactive test result does [...] antibody 0.17 <1 S/CO 01/09/2018 10:34 PM MISSILEMAN [facility] Comment: Signal/Cutoff ratio < 0.79 is Nondetected Signal/Cutoff ratio 0.80-0.99 is Grayzone Signal/Cutoff ratio > 0.99 is Detected Supplemental assays are recommended if signal/cutoff ratio is >/=1.00. Signal/cutoff ratio result >/= 5.00 is 97% predictive of positivity for recombinant immunoblot assay (RIBA) and will be reported to the [place] [facility] as required. Blood specimen (specimen) Venipuncture / Unknown 01/09/2018 10:35 AM MISSILEMAN 01/09/2018 12:18 PM MISSILEMAN us Alma Brito LIABILITY CLAIMS MANAGER, [employer] OPERATOR HEMATOLOGY ORDERA BLES Final Result Performing Organization Address City/State/[facility] Co de Phone Number [facility] [address] [place] [address], * [facility] SCREENING BEULAH W IMPL DIGITAL W CAD (01/03/2016 3:08 PM CDT) Anatomical Region Laterality Modality breast Bilateral Mammography 01/03/2016 2:45 PM CDT Narrative 01/11/2016 4:48 PM MISSILEMAN - [facility] SCREENING BEULAH W IMPL DIGITAL [...] made to exams dated: 12/05/2014 and 11/04/2013 [facility]. BREAST TISSUE: The tissue of both [...] signed by: Lachelle Mccormack M.D. pw/:01/11/2016 11:10:22 Gear Machinist: Vria Valdez(R), [facility] letter sent: Normal Exam Reading location: [facility] BI-RADS: 1 Negative Procedure Note [...] made to exams dated: 12/05/2014 and 11/04/2013 [facility]. BREAST TISSUE: The tissue of both [...] signed by: Lachelle Mccormack M.D. pw/:01/11/2016 11:10:22 Gear Machinist: Vira Valdez(Julius), [facility] letter sent: Normal Exam Reading location: [facility] BI-RADS: 1 Negative us Flori Cordovaarlin PAC [...] 10:13 AM 03/26/2012 11:31 AM Care Teams Event Representative Relationship Specialty Start Date End Date Provider, None [place] PCP - General 09/08/23
[2024-12-20 19:54] LABS: Free T4 Free Thyroxine 1.16 ng/dL (0.78-2.19)
[2024-12-20 20:01] LABS: Thyroid Stimulating Hormone 0.051 uIU/mL (0.465-4.680)
== END 2024-12-20 07:55 | disposition home or self-care (01) ==
LOC: ANHBWCLAB 07:55
PROVIDERS: PCP Nurse Practitioner Adult Health; Visit Provider Nurse Practitioner Adult Health
DX: E07.9 Disorder of thyroid, unspecified (principal)
CPT/HCPCS: 36415; 84439; 84443